=== PATIENT | female | born 1970 | race Caucasian/White ===

== ENCOUNTER 2019-12-27 12:57 | Outpatient (CLI) | payer MEDICAID | END 2019-12-27 23:59 | disposition home or self-care (01) | LOC: VAS 12:57 | PROVIDERS: ATTEND Family Medicine | DX: M79.661 Pain in right lower leg (principal) | CPT/HCPCS: 93971 ==

== ENCOUNTER 2020-07-31 10:14 | Day surgery (SDC) | payer MEDICAID ==
[2020-07-31] MEDS ORDERED: LIDOcaine 2% 5ml jelly ONE (10:52)
[2020-07-31] MEDS ORDERED: hydrocortisone 1% cream 28gm TP ONE (12:45)
[2020-07-31 13:49] LABS: BASOPHILS # (AUTO) 0.1 X10'3 (0-0.2); EOSINOPHILS # (AUTO) 0.2 X10'3 (0-0.9); HEMATOCRIT 38.9 % (35.0-45.0); HEMOGLOBIN 12.9 g/dl (12.0-16.0); LYMPHOCYTES # (AUTO) 1.6 X10'3 (1.1-4.8); LYMPHOCYTES % (AUTO) 21.5 % (21-51); MEAN CORPUSCULAR HEMOGLOBIN 27.8 PG (27.0-31.0); MEAN CORPUSCULAR HGB CONC 33.2 g/dL (33.0-36.5); MEAN CORPUSCULAR VOLUME 83.6 FL (78-98); MEAN PLATELET VOLUME 8.2 FL (7.4-10.4); MONOCYTES # (AUTO) 0.5 X10'3 (0-0.9); MONOCYTES % (AUTO) 6.8 % (2-12); NEUTROPHILS # (AUTO) 5.2 X10'3 (1.8-7.7); NEUTROPHILS % (AUTO) 67.7 % (42-75); PLATELET COUNT 278 X10'3 (140-440); RED BLOOD COUNT 4.65 X10'6 (4.20-5.60); WHITE BLOOD COUNT 7.6 X10'3 (4.5-11.0)
[2020-07-31 14:08] LABS: ALANINE AMINOTRANSFERASE 28 U/L (12-78); ALBUMIN 3.5 G/DL (3.4-5.0); ALBUMIN/GLOBULIN RATIO 0.9 (1.1-1.5); ALKALINE PHOSPHATASE 109 IU/L (46-116); ANION GAP 2 (8-16); ASPARTATE AMINO TRANSFERASE 19 U/L (10-37); BILIRUBIN,TOTAL 0.4 MG/DL (0.1-1.0); BLOOD UREA NITROGEN 13 MG/DL (7-18); BUN/CREATININE RATIO 18.8 (6.6-38.0); C-REACTIVE PROTEIN 3.82 MG/DL (0.0-0.5); CHLORIDE 104 MMOL/L (99-107); CREATININE 0.69 MG/DL (0.40-0.90); GLUCOSE 96 MG/DL (70-104); POTASSIUM 3.1 MMOL/L (3.5-5.1); SODIUM 140 MMOL/L (135-145); TOTAL CARBON DIOXIDE 33.6 MMOL/L (24-32); TOTAL PROTEIN 7.5 G/DL (6.4-8.2); eGFR 90 ML/MIN
[2020-07-31 14:20] LABS: HEMOGLOBIN A1C 5.9 % (4.5-6.2)
== END 2020-07-31 13:15 | disposition home or self-care (01) ==
LOC: WOUND CARE 10:14
PROVIDERS: ATTEND Nurse Practitioner
DX: S81.801A Unspecified open wound, right lower leg, initial encounter (principal); I89.0 Lymphedema, not elsewhere classified; M19.90 Unspecified osteoarthritis, unspecified site; M79.661 Pain in right lower leg; X58.XXXA Exposure to other specified factors, initial encounter; Y93.89 Activity, other specified; Y92.89 Other specified places as the place of occurrence of the external cause; Y99.8 Other external cause status
CPT/HCPCS: 36415; 80053; 83036; 85025; 85651; 86140; 87070; 87075; 87077; 87102; 87186; 97597

== ENCOUNTER 2020-08-15 10:10 | Day surgery (SDC) | payer MEDICAID ==
[2020-08-15] MEDS ORDERED: LIDOcaine 2% 5ml jelly ONE ×2 (11:10→11:33)
[2020-08-15] MEDS ORDERED: hydrocortisone 1% cream 28gm TP ONE (12:11)
== END 2020-08-15 12:44 | disposition home or self-care (01) ==
LOC: WOUND CARE 10:10
PROVIDERS: ATTEND Nurse Practitioner
DX: S81.801D Unspecified open wound, right lower leg, subsequent encounter (principal); I89.0 Lymphedema, not elsewhere classified; M19.90 Unspecified osteoarthritis, unspecified site; E07.9 Disorder of thyroid, unspecified; Z98.51 Tubal ligation status; X58.XXXD Exposure to other specified factors, subsequent encounter
CPT/HCPCS: 97597; 97598

== ENCOUNTER 2020-08-29 12:20 | Outpatient (CLI) | payer MEDICAID ==
[2020-08-29] MEDS ORDERED: LIDOcaine 2% 5ml jelly ONE (12:51)
[2020-08-29] MEDS ORDERED: hydrocortisone 1% cream 28gm TP ONE (13:02)
== END 2020-08-29 14:30 | disposition home or self-care (01) ==
LOC: WOUND CARE 12:20
PROVIDERS: ATTEND Nurse Practitioner
DX: S81.801D Unspecified open wound, right lower leg, subsequent encounter (principal); L97.212 Non-pressure chronic ulcer of right calf with fat layer exposed; I89.0 Lymphedema, not elsewhere classified; M19.90 Unspecified osteoarthritis, unspecified site; E07.9 Disorder of thyroid, unspecified; Z98.51 Tubal ligation status; X58.XXXD Exposure to other specified factors, subsequent encounter
CPT/HCPCS: 97597; 97598

== ENCOUNTER 2020-10-18 09:58 | Outpatient (CLI) | payer MEDICAID ==
[2020-10-18] MEDS ORDERED: LIDOcaine 2% 5ml jelly ONE (10:40)
[2020-10-18] MEDS ORDERED: hydrocortisone 1% cream 28gm TP ONE (11:41)
[2020-10-18 12:21] LABS: BASOPHILS # (AUTO) 0.1 X10'3 (0-0.2); BASOPHILS % (AUTO) 0.9 % (0-1); EOSINOPHILS # (AUTO) 0.2 X10'3 (0-0.9); EOSINOPHILS % (AUTO) 2.6 % (0-6); HEMATOCRIT 39.5 % (35.0-45.0); HEMOGLOBIN 12.9 g/dl (12.0-16.0); LYMPHOCYTES # (AUTO) 1.6 X10'3 (1.1-4.8); LYMPHOCYTES % (AUTO) 19.3 % (21-51); MEAN CORPUSCULAR HGB CONC 32.6 g/dL (33.0-36.5); MEAN CORPUSCULAR VOLUME 82.7 FL (78-98); MEAN PLATELET VOLUME 8.6 FL (7.4-10.4); MONOCYTES # (AUTO) 0.6 X10'3 (0-0.9); MONOCYTES % (AUTO) 6.9 % (2-12); NEUTROPHILS # (AUTO) 5.6 X10'3 (1.8-7.7); NEUTROPHILS % (AUTO) 70.3 % (42-75); PLATELET COUNT 301 X10'3 (140-440); RED BLOOD COUNT 4.78 X10'6 (4.20-5.60); RED CELL DISTRIBUTION WIDTH 15.3 % (11.5-14.5)
[2020-10-18 12:23] LABS: ALANINE AMINOTRANSFERASE 32 U/L (12-78); ALBUMIN 3.3 G/DL (3.4-5.0); ALBUMIN/GLOBULIN RATIO 0.7 (1.1-1.5); ALKALINE PHOSPHATASE 110 IU/L (46-116); ANION GAP 7 (8-16); ASPARTATE AMINO TRANSFERASE 29 U/L (10-37); BILIRUBIN,TOTAL 0.2 MG/DL (0.1-1.0); BLOOD UREA NITROGEN 17 MG/DL (7-18); BUN/CREATININE RATIO 22.7 (6.6-38.0); C-REACTIVE PROTEIN 1.34 MG/DL (0.0-0.5); CALCIUM 9.4 MG/DL (8.5-10.1); CHLORIDE 103 MMOL/L (99-107); CREATININE 0.75 MG/DL (0.40-0.90); GLUCOSE 129 MG/DL (70-104); POTASSIUM 3.9 MMOL/L (3.5-5.1); SODIUM 139 MMOL/L (135-145); eGFR 82 ML/MIN
== END 2020-10-18 23:59 | disposition home or self-care (01) ==
LOC: WOUND CARE 09:58
PROVIDERS: ATTEND Nurse Practitioner
DX: S81.801D Unspecified open wound, right lower leg, subsequent encounter (principal); Q82.0 Hereditary lymphedema; L97.212 Non-pressure chronic ulcer of right calf with fat layer exposed; E07.9 Disorder of thyroid, unspecified; L84 Corns and callosities; M10.9 Gout, unspecified; G89.29 Other chronic pain; G62.9 Polyneuropathy, unspecified; M19.09 Primary osteoarthritis, other specified site; F41.9 Anxiety disorder, unspecified; Z79.899 Other long term (current) drug therapy; Z98.51 Tubal ligation status; Z98.890 Other specified postprocedural states; Z79.82 Long term (current) use of aspirin; Z96.641 Presence of right artificial hip joint; Z96.698 Presence of other orthopedic joint implants; X58.XXXD Exposure to other specified factors, subsequent encounter
CPT/HCPCS: 11043; 29581; 36415; 80053; 85025; 85651; 86140; 87070; 87075; 87076; 87077; 87185; 87186

== ENCOUNTER 2020-10-24 09:34 | Outpatient (CLI) | payer MEDICAID ==
[2020-10-24] MEDS ORDERED: LIDOcaine 2% 5ml jelly ONE (10:33)
[2020-10-24] MEDS ORDERED: hydrocortisone 1% cream 28gm TP ONE (11:16)
== END 2020-10-24 23:59 | disposition home or self-care (01) ==
LOC: WOUND CARE 09:34
PROVIDERS: ATTEND Nurse Practitioner
DX: L97.212 Non-pressure chronic ulcer of right calf with fat layer exposed (principal); Q82.0 Hereditary lymphedema; S81.801D Unspecified open wound, right lower leg, subsequent encounter; M19.90 Unspecified osteoarthritis, unspecified site; E07.9 Disorder of thyroid, unspecified; L84 Corns and callosities; M10.9 Gout, unspecified; G89.29 Other chronic pain; G62.9 Polyneuropathy, unspecified; F41.9 Anxiety disorder, unspecified; Z98.51 Tubal ligation status; Z79.899 Other long term (current) drug therapy; Z98.890 Other specified postprocedural states; Z79.82 Long term (current) use of aspirin; Z96.641 Presence of right artificial hip joint; Z96.698 Presence of other orthopedic joint implants; X58.XXXD Exposure to other specified factors, subsequent encounter
CPT/HCPCS: 11042; 29581

== ENCOUNTER 2020-11-07 11:29 | Outpatient (CLI) | payer MEDICAID | END 2020-11-07 23:59 | disposition home or self-care (01) | LOC: WOUND CARE 11:29 | PROVIDERS: ATTEND Nurse Practitioner | DX: Q82.0 Hereditary lymphedema (principal); S81.801D Unspecified open wound, right lower leg, subsequent encounter; L97.212 Non-pressure chronic ulcer of right calf with fat layer exposed; E07.9 Disorder of thyroid, unspecified; L84 Corns and callosities; M10.9 Gout, unspecified; G89.29 Other chronic pain; G62.9 Polyneuropathy, unspecified; M19.09 Primary osteoarthritis, other specified site; F41.9 Anxiety disorder, unspecified; Z79.899 Other long term (current) drug therapy; Z98.51 Tubal ligation status; Z98.890 Other specified postprocedural states; Z79.82 Long term (current) use of aspirin; Z96.641 Presence of right artificial hip joint; Z96.698 Presence of other orthopedic joint implants; X58.XXXD Exposure to other specified factors, subsequent encounter | CPT/HCPCS: 29581 ==

== ENCOUNTER 2020-11-22 10:41 | Outpatient (CLI) | payer MEDICAID ==
[2020-11-22] MEDS ORDERED: LIDOcaine 2% 5ml jelly ONE (11:44)
[2020-11-22] MEDS ORDERED: hydrocortisone 1% cream 28gm TP ONE (13:02)
== END 2020-11-22 23:59 | disposition home or self-care (01) ==
LOC: WOUND CARE 10:41
PROVIDERS: ATTEND Nurse Practitioner
DX: S81.801D Unspecified open wound, right lower leg, subsequent encounter (principal); Q82.0 Hereditary lymphedema; L97.212 Non-pressure chronic ulcer of right calf with fat layer exposed; E07.9 Disorder of thyroid, unspecified; L84 Corns and callosities; M10.9 Gout, unspecified; G89.29 Other chronic pain; G62.9 Polyneuropathy, unspecified; M19.09 Primary osteoarthritis, other specified site; F41.9 Anxiety disorder, unspecified; Z79.899 Other long term (current) drug therapy; Z98.51 Tubal ligation status; Z98.890 Other specified postprocedural states; Z79.82 Long term (current) use of aspirin; Z96.641 Presence of right artificial hip joint; Z96.698 Presence of other orthopedic joint implants; X58.XXXD Exposure to other specified factors, subsequent encounter
CPT/HCPCS: 11042; 87070; 87075; 87076; 87077; 87185; 87186

== ENCOUNTER → 2021-01-24 | Outpatient (CLI) | payer MEDICAID ==
[~2021-01-24] MED LIST: LIDOcaine 2% 5ml jelly ONE
== END | disposition home or self-care (01) ==
LOC: WOUND CARE 11:29
PROVIDERS: ATTEND Nurse Practitioner
DX: I89.0 Lymphedema, not elsewhere classified (principal); S81.801D Unspecified open wound, right lower leg, subsequent encounter; Q82.0 Hereditary lymphedema; L89.616 Pressure-induced deep tissue damage of right heel; L97.212 Non-pressure chronic ulcer of right calf with fat layer exposed; E07.9 Disorder of thyroid, unspecified; L84 Corns and callosities; M10.9 Gout, unspecified; G89.29 Other chronic pain; G62.9 Polyneuropathy, unspecified; M19.09 Primary osteoarthritis, other specified site; F41.9 Anxiety disorder, unspecified; Z79.899 Other long term (current) drug therapy; Z98.51 Tubal ligation status; Z98.890 Other specified postprocedural states; Z79.82 Long term (current) use of aspirin; Z96.641 Presence of right artificial hip joint; Z96.698 Presence of other orthopedic joint implants; X58.XXXD Exposure to other specified factors, subsequent encounter
CPT/HCPCS: 11043; 87070; 87075; 87076; 87077; 87185; 87186

== ENCOUNTER 2021-03-01 08:46 | Inpatient (IN) | payer MEDICAID ==
[~2021-03-01] VITALS: Ht 182.9 cm; Wt 118.0 kg
[~2021-03-01 08:46] MED LIST changes: -LIDOcaine 2% 5ml jelly ONE; +etomidate 2mg/ml inj. ONE; +rocuronium 10mg/ml inj IV ONE; +sod chloride 0.9% 10ml flush syringe IV ONE
[2021-03-01] MEDS ORDERED: normal saline 1000ML IV soln IV ONE (09:05)
[2021-03-01] MEDS ORDERED: CefTRIAXone 2gm/D5W 50ml BAG 50 ML IV ONE (09:05)
[2021-03-01 10:42] LABS: MEAN PLATELET VOLUME 8.9 FL (7.4-10.4); RED BLOOD COUNT 5.52 X10'6 (4.20-5.60)
[2021-03-01 10:45] LABS: HEMATOCRIT 43.6 % (35.0-45.0); HEMOGLOBIN 14.3 g/dl (12.0-16.0); MEAN CORPUSCULAR HGB CONC 32.9 g/dL (33.0-36.5); PLATELET COUNT 324 X10'3 (140-440); RED CELL DISTRIBUTION WIDTH 16.4 % (11.5-14.5); WHITE BLOOD COUNT 9.9 X10'3 (4.5-11.0)
[2021-03-01 10:56] LABS: ALANINE AMINOTRANSFERASE 50 U/L (12-78); ALBUMIN 2.1 G/DL (3.4-5.0); ALBUMIN/GLOBULIN RATIO 0.4 (1.1-1.5); ALKALINE PHOSPHATASE 150 IU/L (46-116); ANION GAP 16 (8-16); ASPARTATE AMINO TRANSFERASE 91 U/L (10-37); BILIRUBIN,TOTAL 1.3 MG/DL (0.1-1.0); BLOOD UREA NITROGEN 50 MG/DL (7-18); BUN/CREATININE RATIO 14.3 (6.6-38.0); CALCIUM 10.3 MG/DL (8.5-10.1); CHLORIDE 87 MMOL/L (99-107); GLUCOSE 79 MG/DL (70-104); POTASSIUM 4.4 MMOL/L (3.5-5.1); SODIUM 124 MMOL/L (135-145); TOTAL CARBON DIOXIDE 21.5 MMOL/L (24-32); eGFR 14 ML/MIN
[2021-03-01] MEDS ORDERED: vancomycin inj 1,000 MG in normal saline 250ml IV soln 250 ML IV STA (11:15)
[2021-03-01] MEDS ORDERED: metoclopramide 5 mg/ml inj IV ONE (11:40)
[2021-03-01 11:41] LABS: TOTAL CELLS COUNTED 100
[2021-03-01 11:42] LABS: ANISOCYTOSIS 1+; BURR CELLS 2+; PLATELET ESTIMATE NORMAL; TOXIC VACUOLATION 1+
--- NOTE | 2021-03-01 12:13 | NUR ---
DRESSINGS REMOVED. PT LEGS HAVE CHRONIC APPEARING WOUNDS BILATERALLY.
[2021-03-01 12:25] LABS: CLARITY,URINE CLOUDY (Clear); COLOR,URINE AMBER (Yellow); GLUCOSE, URINE NEGATIVE (Neg); KETONES,URINE 15 mg/dl (Neg); LEUKOCYTE ESTERASE ,URINE NEGATIVE (Neg); OCCULT BLOOD,URINE LARGE (Neg); PROTEIN,URINE 100 mg/dl (Neg)
[2021-03-01 12:26] LABS: URINE AMPHETAMINE SCREEN POSITIVE (Neg); URINE BARBITUATE SCREEN NEGATIVE (Neg); URINE BENZODIAZEPINES SCREEN NEGATIVE (Neg); URINE CANNABINOID SCREEN NEGATIVE (Neg); URINE COCAINE SCREEN NEGATIVE (Neg); URINE METHADONE SCREEN NEGATIVE (Neg); URINE OPIATE SCREEN POSITIVE (Neg); URINE PHENCYCLIDINE SCREEN NEGATIVE (Neg)
[2021-03-01 12:31] LABS: UA COLLECTION TYPE FOLEY CATH
[2021-03-01 12:32] LABS: NITRITES, URINE NEGATIVE (Neg)
[2021-03-01 12:33] LABS: BACTERIA,URINE FEW /HPF (Neg); MUCUS STRANDS FEW /LPF (Neg); RBC,URINE 0-2 /HPF (0-2); SQUAMOUS EPITHELIAL CELL,UR MANY /LPF (FEW); TRANSITIONAL EPI CELLS,URINE FEW /HPF; WBC,URINE 0-4 /HPF (0-4)
[2021-03-01 12:34] LABS: AMORPHOUS URATES 2+; COARSE GRANULAR CAST 0-3 /LPF (NEGATIVE)
[2021-03-01 12:39] LABS: C-REACTIVE PROTEIN 45.19 MG/DL (0.0-0.5)
[2021-03-01] MEDS ORDERED: TRIA15CR62 TP (13:48)
[2021-03-01] MEDS ORDERED: morphine 4 MG/ML inj SYRINge IV ONE (14:45)
[2021-03-01] MEDS ORDERED: albuterol 2.5 MG/3 ML nebule NEB PRN (15:35)
[2021-03-01] MEDS ORDERED: magnesium hydroxide 30ml (MOM) UD suspension PO PRN (15:35)
[2021-03-01] MEDS ORDERED: LIDOcaine 2% 10ml TOPICAL JELLY (Urojet) TP ONE (15:35)
[2021-03-01] MEDS ORDERED: morphine 2 MG/ML inj. syringe IV PRN (15:35)
[2021-03-01] MEDS ORDERED: morphine 4 MG/ML inj SYRINge IV PRN (15:35)
[2021-03-01] MEDS ORDERED: ipratropium/albuterol 3ml nebule NEB PRN (15:35)
[2021-03-01] MEDS ORDERED: ondansetron/PF 4mg/2ml inj IV PRN (15:35)
[2021-03-01] MEDS ORDERED: acetaminophen 325mg tablet PO PRN ×2 (15:35)
--- NOTE | 2021-03-01 15:58 | NUR ---
complete linen change, pericare: rosado diarhhea, clean gown placed
[2021-03-01] MEDS ORDERED: vancomycin/NS 1 GM ADD-VANTAGE 250 ML X 1 DOSE IV ONE (16:27)
--- NOTE | 2021-03-01 16:49 | NUR ---
WITH PATIENT'S PERMISSION: SPOKE TO TESSA ON THE PHONE
[2021-03-01 16:57] LABS: ABG BASE EXCESS -4.6 mmol/L (-2.0-2.0); ABG HCO3 18.7 mmol/L (22.0-26.0); ABG OXYGEN SATURATION 93.9 % (94-97); ABG PCO2 (T) 29.6 mmHg (32.0-45.0); ABG PO2 (T) 66.5 mmHg (75.0-100.0); FCOHb 0.7 % (0.0-3.9); FMetHb 0.2 % (0.0-1.5); FO2Hb 93.1 % (94-97); TOTAL HEMOGLOBIN 13.4 G/dl (12.0-16.0)
--- NOTE | 2021-03-01 17:06 | NUR ---
FATHER LATONIA CLER: CELL [phone] SIGNIFICANT OTHER: TESSA BOATENG CELL: [phone]
[2021-03-01] MEDS: piperacillin/tazo 3.375gm/50ml 50 ML IV SCH (17:07)
[2021-03-01] MEDS: normal saline 1000ml 1,000 ML IV SCH ×2 (17:08→22:53)
[2021-03-01 17:18] LABS: D-DIMER 2.64 MG/L FEU (0-0.50)
--- NOTE | 2021-03-01 17:22 | NUR ---
FATHER AT BEDSIDE
--- NOTE | 2021-03-01 17:23 | NUR ---
phone report to madhu fischer. patient to go to room 2014 in icu with rn on monitor on [facility]
[2021-03-01 18:00] VITALS: BP 105/54
--- NOTE | 2021-03-01 18:17 | NUR ---
Received pt from ER at 1755. Pt connected to the monitor. Dr. Lang at bedside right now. Gave report to nuno Reaves RN.
[2021-03-01] MEDS ORDERED: normal saline 1000ml 1,000 ML IV ONE (18:45)
[2021-03-01] MEDS ORDERED: albumin (Human) 5% 250ml 250 ML IV ONE ×3 (18:45→22:00)
[2021-03-01 19:00] VITALS: BP 101/62
[2021-03-01] MEDS ORDERED: dextrose 50%-water 50ml dispensing syringe IV ONE ×2 (19:44→20:10)
[2021-03-01 20:00] VITALS: BP 102/62
[2021-03-01] MEDS: docusate sod 100mg capsule PO SCH (20:00)
[2021-03-01] MEDS: heparin, porcine 5000 units/ml vial SQ SCH ×2 (20:29→23:14)
[2021-03-01] MEDS ORDERED: Dextrose 10%-water IV solution 1,000 ML IV SCH (20:50)
[2021-03-01] MEDS ORDERED: insulin Lispro (HumaLOG) vial - multi-dose SQ SCH (20:50)
[2021-03-01] MEDS ORDERED: MESSAGE TO PHARMACY PO ONE (20:50)
[2021-03-01] MEDS ORDERED: dextrose 50%-water 50ml dispensing syringe IV PRN (20:50)
[2021-03-01] MEDS ORDERED: dextrose ORAL solution 15 GM/59 ML bottle PO PRN ×2 (20:50)
[2021-03-01] MEDS ORDERED: glucagon, human recombinant 1mg kit SUBCUT PRN (20:50)
[2021-03-01] MEDS: insulin glargine (Lantus) pen - multi-dose SQ SCH (20:53)
[2021-03-01 21:00] VITALS: BP 101/65
[2021-03-01 21:17] LABS: HEMOGLOBIN A1C 6.4 % (4.5-6.2)
[2021-03-01 22:00] VITALS: BP 103/64
[2021-03-01 23:00] VITALS: BP 99/64
[2021-03-01] MEDS: dextrose 50%-water 50ml dispensing syringe IV PRN (23:26)
[2021-03-02] VITALS (24 sets, daily range): BP systolic 91–119; BP diastolic 43–61
[2021-03-02] MEDS ORDERED: albumin (Human) 5% 250ml 250 ML IV ONE
[2021-03-02] MEDS: piperacillin/tazo 3.375gm/50ml 50 ML IV SCH ×4 (00:50→23:16)
[2021-03-02] MEDS: dextrose 50%-water 50ml dispensing syringe IV PRN ×2 (00:55→23:43)
[2021-03-02 02:23] LABS: PARTIAL THROMBOPLASTIN TIME 52 SECONDS (22-32)
[2021-03-02 02:25] LABS: ALANINE AMINOTRANSFERASE 38 U/L (12-78); ALBUMIN 1.9 G/DL (3.4-5.0); ALBUMIN/GLOBULIN RATIO 0.7 (1.1-1.5); ALKALINE PHOSPHATASE 80 IU/L (46-116); ANION GAP 12 (8-16); ASPARTATE AMINO TRANSFERASE 89 U/L (10-37); BILIRUBIN,TOTAL 1.1 MG/DL (0.1-1.0); BLOOD UREA NITROGEN 50 MG/DL (7-18); BUN/CREATININE RATIO 19.2 (6.6-38.0); CALCIUM 8.1 MG/DL (8.5-10.1); CHLORIDE 95 MMOL/L (99-107); GLUCOSE 150 MG/DL (70-104); MAGNESIUM 1.5 MG/DL (1.5-2.4); PHOSPHORUS 3.1 MG/DL (2.3-4.5); POTASSIUM 3.6 MMOL/L (3.5-5.1); SODIUM 128 MMOL/L (135-145); TOTAL CARBON DIOXIDE 20.6 MMOL/L (24-32); TOTAL PROTEIN 4.8 G/DL (6.4-8.2); eGFR 19 ML/MIN
[2021-03-02 02:50] LABS: HEMOGLOBIN 10.6 g/dl (12.0-16.0); MEAN PLATELET VOLUME 8.6 FL (7.4-10.4)
[2021-03-02 02:52] LABS: HEMATOCRIT 32.6 % (35.0-45.0); MEAN CORPUSCULAR HEMOGLOBIN 25.6 PG (27.0-31.0); MEAN CORPUSCULAR HGB CONC 32.6 g/dL (33.0-36.5); MEAN CORPUSCULAR VOLUME 78.5 FL (78-98); PLATELET COUNT 190 X10'3 (140-440); RED BLOOD COUNT 4.15 X10'6 (4.20-5.60); RED CELL DISTRIBUTION WIDTH 16.6 % (11.5-14.5); WHITE BLOOD COUNT 5.9 X10'3 (4.5-11.0)
[2021-03-02 06:22] LABS: ANISOCYTOSIS 1+; BURR CELLS 2+; ELLIPTOCYTES FEW; MICROCYTOSIS 1+; PLATELET ESTIMATE NORMAL; TOTAL CELLS COUNTED 100
[2021-03-02 06:23] LABS: TOXIC VACUOLATION 1+
[2021-03-02] MEDS: heparin, porcine 5000 units/ml vial SQ SCH ×3 (07:32→23:17)
[2021-03-02] MEDS: pantoprazole 40 MG vial IV SCH (07:32)
[2021-03-02] MEDS: docusate sod 100mg capsule PO SCH ×3 (07:32→18:58)
[2021-03-02] MEDS: normal saline 1000ml 1,000 ML IV SCH ×3 (07:44→21:24)
[2021-03-02] MEDS ORDERED: sodium chloride inj. 154 MEQ in Dextrose 10%-water IV solution 961.5 ML IV SCH ×2 (08:30→09:00)
[2021-03-02] MEDS ORDERED: dexmedetomidine/D5W 100mL 100 ML IV PRN (09:00)
--- NOTE | 2021-03-02 09:49 | NUR ---
Initial: Pt with h/o severe lymphedema BIB EMS for evaluation of non-healing chronic wounds to right leg. Pt being seen by wound care at home and was encouraged to go to ER d/t wound appearance per ED note. Wound care has been consulted, pending assessment at this time. Pt on a full liquid diet however to be NPO until pt able to pass a swallow study per MD note as pt coughing when drinking water per guest relations officer. Recommend BSS with ST to assess need for texture modification. Noted pt with frequent low blood sugars, down to 17 mg/dL. Pt on glycemic protocol and receiving routine D10/NS. Recommend diet advancement to regular as medically indicated. No documented LBM, pt with routine bowel care available however pt documented to be refusing. Will continue to follow closely and make recommendations as appropriate. Recommendations: 1) Advance to regular diet as medically indicated; consider BSS with ST 2) Saurav ONS BID for wound healing needs with diet advancement, pending WOC assessment for wound staging 3) Routine bowel care 4) Weekly scaled weights Addendum: 03/02/21 at [address] Amended: Links added.
[2021-03-02] MEDS: sodium chloride inj. 154 MEQ in Dextrose 10%-water IV solution 961.5 ML IV SCH (11:15)
[2021-03-02 11:41] LABS: CREATINE KINASE 192 U/L (26-192)
[2021-03-02] MEDS: vancomycin/NS 1 GM ADD-VANTAGE 250 ML IV SCH (15:50)
[2021-03-02] MEDS ORDERED: VANCOMYCIN 750MG IV in NS 250 ML IV SCH (17:00)
--- NOTE | 2021-03-02 18:16 | NUR ---
Problems reprioritized. Patient report given, questions answered & plan of care reviewed with Jean Paul.
[2021-03-02] MEDS ORDERED: potassium Cl 40MEQ/1/2NS 520ml 520 ML IV PRN (20:45)
[2021-03-02] MEDS ORDERED: potassium Cl 20 mEq SR tablet PO PRN (20:45)
[2021-03-02] MEDS: insulin glargine (Lantus) pen - multi-dose SQ SCH (21:00)
--- NOTE | 2021-03-02 21:02 | NUR ---
spoke to dr. myers in regards to lactic acid series . orders are to repeat in with AM labs and not to do q2h unless change in patient status
[2021-03-03] VITALS (24 sets, daily range): BP systolic 92–135; BP diastolic 48–77
[2021-03-03 04:01] LABS: PARTIAL THROMBOPLASTIN TIME 47 SECONDS (22-32)
[2021-03-03 04:02] LABS: ALANINE AMINOTRANSFERASE 34 U/L (12-78); ALBUMIN 1.4 G/DL (3.4-5.0); ALBUMIN/GLOBULIN RATIO 0.4 (1.1-1.5); ALKALINE PHOSPHATASE 99 IU/L (46-116); ANION GAP 16 (8-16); ASPARTATE AMINO TRANSFERASE 55 U/L (10-37); BILIRUBIN,TOTAL 1.2 MG/DL (0.1-1.0); BLOOD UREA NITROGEN 47 MG/DL (7-18); BUN/CREATININE RATIO 24.9 (6.6-38.0); CALCIUM 8.2 MG/DL (8.5-10.1); CHLORIDE 98 MMOL/L (99-107); CREATININE 1.89 MG/DL (0.40-0.90); GLUCOSE 88 MG/DL (70-104); LACTATE DEHYDROGENASE 155 U/L (81-234); MAGNESIUM 1.5 MG/DL (1.5-2.4); PHOSPHORUS 2.5 MG/DL (2.3-4.5); POTASSIUM 3.5 MMOL/L (3.5-5.1); SODIUM 135 MMOL/L (135-145); TOTAL CARBON DIOXIDE 20.6 MMOL/L (24-32); TOTAL PROTEIN 4.7 G/DL (6.4-8.2); eGFR 28 ML/MIN
[2021-03-03 05:20] LABS: RHEUM FACTOR QUAL REFLEX TITER NEGATIVE (Neg)
[2021-03-03 06:17] LABS: HIV ANTIBODY 1&2 RAPID NON-REACTIVE (Neg)
[2021-03-03] MEDS: sodium chloride inj. 154 MEQ in Dextrose 10%-water IV solution 961.5 ML IV SCH ×2 (07:20→23:47)
[2021-03-03 07:54] LABS: BASOPHILS # (AUTO) 0.1 X10'3 (0-0.2); BASOPHILS % (AUTO) 0.4 % (0-1); EOSINOPHILS % (AUTO) 0.1 % (0-6); HEMATOCRIT 32.7 % (35.0-45.0); HEMOGLOBIN 10.7 g/dl (12.0-16.0); LYMPHOCYTES # (AUTO) 0.3 X10'3 (1.1-4.8); LYMPHOCYTES % (AUTO) 2.2 % (21-51); MEAN CORPUSCULAR HEMOGLOBIN 25.4 PG (27.0-31.0); MEAN CORPUSCULAR HGB CONC 32.6 g/dL (33.0-36.5); MEAN PLATELET VOLUME 8.9 FL (7.4-10.4); MONOCYTES % (AUTO) 0.3 % (2-12); NEUTROPHILS # (AUTO) 14.4 X10'3 (1.8-7.7); PLATELET COUNT 142 X10'3 (140-440); RED CELL DISTRIBUTION WIDTH 16.8 % (11.5-14.5); WHITE BLOOD COUNT 14.9 X10'3 (4.5-11.0)
[2021-03-03] MEDS: K and/or MAG REPLACEMENT MC SCH (08:00)
[2021-03-03] MEDS: docusate sod 100mg capsule PO SCH ×2 (08:00→18:57)
[2021-03-03] MEDS: piperacillin/tazo 3.375gm/50ml 50 ML IV SCH ×3 (08:55→23:46)
[2021-03-03] MEDS: pantoprazole 40 MG vial IV SCH (08:55)
[2021-03-03] MEDS: heparin, porcine 5000 units/ml vial SQ SCH ×3 (08:56→23:46)
[2021-03-03] MEDS: normal saline 1000ml 1,000 ML IV SCH ×3 (09:12→23:47)
[2021-03-03] MEDS ORDERED: normal saline 1000ml 1,000 ML IV ONE ×3 (10:25→18:30)
[2021-03-03 11:26] LABS: ANISOCYTOSIS 1+; BURR CELLS 2+; ELLIPTOCYTES FEW; MICROCYTOSIS 1+; PLATELET ESTIMATE DECREASED; TOTAL CELLS COUNTED 100
[2021-03-03] MEDS: vancomycin/NS 1 GM ADD-VANTAGE 250 ML IV SCH (16:43)
--- NOTE | 2021-03-03 18:01 | NUR ---
per Dr Rickey Verduzco needs to br informed again about the patient's lactic acid of 5.1. Message left with the answering service of Dr Verduzco.
[2021-03-03 18:16] LABS: ABG OXYGEN SATURATION 93.7 % (94-97); ABG PCO2 (T) 30.5 mmHg (32.0-45.0); ALLEN'S TEST POSITIVE; FCOHb 0.2 % (0.0-3.9); FMetHb 0.4 % (0.0-1.5); FO2Hb 93.1 % (94-97); TOTAL HEMOGLOBIN 11.3 G/dl (12.0-16.0)
--- NOTE | 2021-03-03 18:30 | NUR ---
Dr Lang notified of ABG results. Patient placed on 2 l/NC
[2021-03-03] MEDS: insulin glargine (Lantus) pen - multi-dose SQ SCH (18:57)
[2021-03-04] VITALS (23 sets, daily range): BP systolic 91–139; BP diastolic 59–83
[2021-03-04 03:36] LABS: BASOPHILS % (AUTO) 0.1 % (0-1); EOSINOPHILS % (AUTO) 0.2 % (0-6); HEMATOCRIT 33.3 % (35.0-45.0); HEMOGLOBIN 10.7 g/dl (12.0-16.0); LYMPHOCYTES # (AUTO) 0.7 X10'3 (1.1-4.8); LYMPHOCYTES % (AUTO) 2.8 % (21-51); MEAN CORPUSCULAR HEMOGLOBIN 25.3 PG (27.0-31.0); MEAN CORPUSCULAR HGB CONC 32.3 g/dL (33.0-36.5); MEAN CORPUSCULAR VOLUME 78.3 FL (78-98); MEAN PLATELET VOLUME 8.4 FL (7.4-10.4); MONOCYTES # (AUTO) 0.1 X10'3 (0-0.9); MONOCYTES % (AUTO) 0.3 % (2-12); NEUTROPHILS # (AUTO) 23.8 X10'3 (1.8-7.7); NEUTROPHILS % (AUTO) 96.6 % (42-75); PLATELET COUNT 125 X10'3 (140-440); RED BLOOD COUNT 4.26 X10'6 (4.20-5.60); RED CELL DISTRIBUTION WIDTH 16.9 % (11.5-14.5); WHITE BLOOD COUNT 24.6 X10'3 (4.5-11.0)
[2021-03-04 03:51] LABS: PARTIAL THROMBOPLASTIN TIME 48 SECONDS (22-32)
[2021-03-04 03:52] LABS: ALANINE AMINOTRANSFERASE 28 U/L (12-78); ALBUMIN 1.3 G/DL (3.4-5.0); ALBUMIN/GLOBULIN RATIO 0.4 (1.1-1.5); ALKALINE PHOSPHATASE 118 IU/L (46-116); ANION GAP 14 (8-16); ASPARTATE AMINO TRANSFERASE 37 U/L (10-37); BILIRUBIN,TOTAL 1.6 MG/DL (0.1-1.0); BLOOD UREA NITROGEN 40 MG/DL (7-18); BUN/CREATININE RATIO 31.5 (6.6-38.0); CALCIUM 8.5 MG/DL (8.5-10.1); CHLORIDE 104 MMOL/L (99-107); CREATININE 1.27 MG/DL (0.40-0.90); GLUCOSE 91 MG/DL (70-104); MAGNESIUM 1.4 MG/DL (1.5-2.4); PHOSPHORUS 2.4 MG/DL (2.3-4.5); SODIUM 137 MMOL/L (135-145); TOTAL PROTEIN 4.8 G/DL (6.4-8.2); eGFR 45 ML/MIN
[2021-03-04 03:56] LABS: POTASSIUM 2.8 MMOL/L (3.5-5.1)
[2021-03-04] MEDS: normal saline 1000ml 1,000 ML IV SCH ×4 (07:00→23:51)
[2021-03-04] MEDS: heparin, porcine 5000 units/ml vial SQ SCH ×3 (07:31→23:04)
[2021-03-04] MEDS: docusate sod 100mg capsule PO SCH ×2 (07:31→19:32)
[2021-03-04] MEDS: potassium Cl 20 mEq SR tablet PO PRN ×3 (07:33→17:24)
[2021-03-04] MEDS: K and/or MAG REPLACEMENT MC SCH (08:00)
[2021-03-04] MEDS: pantoprazole 40 MG vial IV SCH (08:25)
[2021-03-04] MEDS: piperacillin/tazo 3.375gm/50ml 50 ML IV SCH ×3 (08:26→23:04)
--- NOTE | 2021-03-04 08:30 | NUR ---
ARRIVED TO PLACE PICC, PT UNAVAILABLE AT THIS TIME WOUND CARE AND IR AT BEDSIDE FOR PROCEDURE. BÁRBARA Hartmann PICC MARIO
--- NOTE | 2021-03-04 09:40 | NUR ---
Pt's R IJ central line leaking upon change of shift. Pt receiving NS @ 150, D10 @ 50, and potassium replacement at that time. Pt's entire bed saturated with fluid and CVL dressed with only a small tegaderm which wasn't even covering the insertion site of the central line. Removed CVL to find that line was only in about 1.5 inches. Picture taken and rn hemodialysis charge notified. Pt had 22g in the left thumb which was infiltrated as well. IV removed. PICC nurse paged to place line since pt had no lines at that point. MARIO Liz placed US guided 20g PIV in left arm temporarily and will be back to place PICC.
--- NOTE | 2021-03-04 11:00 | NUR ---
ARRIVED FOR PICC PLACEMENT, PT BEING CLEANED UP AT THIS TIME, MANNY MARTIN REQUESTING I COME BACK IN 30 MINUTES. WILL TRY AGAIN AFTER LUNCH. Lei GRANGER PICC RN
[2021-03-04] MEDS: clindamycin 600mg/D5W 50ml 50 ML IV SCH ×3 (11:58→23:50)
[2021-03-04] MEDS: magnesium Cl slow-release 64mg tablet PO PRN (12:22)
--- NOTE | 2021-03-04 12:50 | NUR ---
NO PICC CONSENT SIGNED, CALLED DR MCCLENDON TO CONFIRM PICC LINE ORDER NEEDED. PER MD PLACE PICC LINE. PT PROVIDED VERBAL CONSENT WHEN FIRST CONTACT MADE THIS MORNING, PT AT THAT TIME ALERT AND ORIENTED X'S 4 Lei GRANGER PICC RN.
--- NOTE | 2021-03-04 13:38 | NUR ---
Reassessment: RN at critical care rounds reports wound care is working with pt, however WOC note still pending at this time. Pt PO intake 25-50% on full liquid diet, per RADIATION ONCOLOGIST recs pt gets SOB easily and should continue on current diet. Recommend Ensure Enlive TIDWM given poor PO intake on restrictive diet. Last BM 03/04 per RN at rounds, receiving routine bowel care. Will continue to monitor closely. Recommendations: 1) Advance to heart healthy diet as medically indicated per RADIATION ONCOLOGIST recs 2) Ensure Enlive TIDWM pending MD verification in EMR 3) Routine bowel care 4) Weekly scaled weights Addendum: 03/04/21 at [address] Amended: Links added. Addendum: 03/04/21 at [address] SIRIA agrees w/ above internal revenue service agent note.
[2021-03-04 14:10] LABS: ANISOCYTOSIS 1+; BURR CELLS 2+; MICROCYTOSIS 1+; NUCLEATED RED BLOOD CELLS 1 /100WBC (0-0); PLATELET ESTIMATE DECREASED; TOTAL CELLS COUNTED 100
--- NOTE | 2021-03-04 14:24 | NUR ---
PSYCHIATRIC LINE INFORMATION: REF: [id number] LOT: [id number] EXP: 02/13/2022
[2021-03-04] MEDS ORDERED: VANCOMYCIN LEVEL IV ONE (16:30)
[2021-03-04 16:36] LABS: ABG BASE EXCESS -5.3 mmol/L (-2.0-2.0); ABG HCO3 17.5 mmol/L (22.0-26.0); ABG OXYGEN SATURATION 96.2 % (94-97); ABG PCO2 (T) 28.7 mmHg (32.0-45.0); ABG PO2 (T) 91.3 mmHg (75.0-100.0); ALLEN'S TEST POSITIVE; FMetHb 0.5 % (0.0-1.5); FO2Hb 95.7 % (94-97); PATIENT TEMPERATURE 38.7; TOTAL HEMOGLOBIN 11.6 G/dl (12.0-16.0)
[2021-03-04 16:41] LABS: VANCOMYCIN,TROUGH 9.8 UG/ML (6.0-14.0)
[2021-03-04] MEDS ORDERED: normal saline 1000ml 1,000 ML IV ONE (17:20)
[2021-03-04] MEDS: vancomycin/NS 1 GM ADD-VANTAGE 250 ML IV SCH (17:29)
--- NOTE | 2021-03-04 17:29 | NUR ---
Dr. Richardson will come by tomorrow to reassess changes in R leg
[2021-03-04] MEDS: lactose-reduced food (Ensure Enlive) - 237ml bottle PO SCH (17:50)
[2021-03-04 18:00] LABS: CREATINE KINASE 28 U/L (26-192)
[2021-03-04] MEDS: lactobacillus rhamnosus 10,000 MMU CELLS/CAPSULE PO SCH (19:32)
[2021-03-04 19:37] LABS: MAGNESIUM 1.5 MG/DL (1.5-2.4); POTASSIUM 3.4 MMOL/L (3.5-5.1)
[2021-03-04] MEDS: VITAMIN D TP SCH (20:00)
[2021-03-04] MEDS: [UNRECOGNIZED DRUG - OTHER] TP SCH (20:00)
[2021-03-04] MEDS: sodium chloride inj. 154 MEQ in Dextrose 10%-water IV solution 961.5 ML IV SCH (20:35)
[2021-03-04] MEDS: insulin glargine (Lantus) pen - multi-dose SQ SCH (21:00)
[2021-03-05] VITALS (25 sets, daily range): BP systolic 15–153; BP diastolic 48–84
[2021-03-05] MEDS ORDERED: LORazepam 2 mg/ml vial IV ONE (00:20)
[2021-03-05 03:29] LABS: BASOPHILS % (AUTO) 0.1 % (0-1); EOSINOPHILS % (AUTO) 0.1 % (0-6); HEMOGLOBIN 10.3 g/dl (12.0-16.0); LYMPHOCYTES # (AUTO) 1.1 X10'3 (1.1-4.8); MEAN CORPUSCULAR HGB CONC 32.6 g/dL (33.0-36.5); MEAN PLATELET VOLUME 8.8 FL (7.4-10.4); MONOCYTES # (AUTO) 0.3 X10'3 (0-0.9)
[2021-03-05 03:37] LABS: PARTIAL THROMBOPLASTIN TIME 44 SECONDS (22-32)
[2021-03-05 03:39] LABS: ALANINE AMINOTRANSFERASE 26 U/L (12-78); ALBUMIN 1.2 G/DL (3.4-5.0); ALBUMIN/GLOBULIN RATIO 0.3 (1.1-1.5); ALKALINE PHOSPHATASE 137 IU/L (46-116); ANION GAP 13 (8-16); ASPARTATE AMINO TRANSFERASE 30 U/L (10-37); BILIRUBIN,TOTAL 1.6 MG/DL (0.1-1.0); BLOOD UREA NITROGEN 37 MG/DL (7-18); BUN/CREATININE RATIO 35.6 (6.6-38.0); CALCIUM 8.4 MG/DL (8.5-10.1); CHLORIDE 106 MMOL/L (99-107); CREATININE 1.04 MG/DL (0.40-0.90); GLUCOSE 140 MG/DL (70-104); HEMATOCRIT 31.6 % (35.0-45.0); MAGNESIUM 1.7 MG/DL (1.5-2.4); PHOSPHORUS 2.3 MG/DL (2.3-4.5); POTASSIUM 3.7 MMOL/L (3.5-5.1); RED BLOOD COUNT 4.05 X10'6 (4.20-5.60); SODIUM 140 MMOL/L (135-145); TOTAL CARBON DIOXIDE 20.8 MMOL/L (24-32); TOTAL PROTEIN 4.8 G/DL (6.4-8.2); eGFR 56 ML/MIN
[2021-03-05 03:40] LABS: LYMPHOCYTES % (AUTO) 3.6 % (21-51); MEAN CORPUSCULAR HEMOGLOBIN 25.4 PG (27.0-31.0); MEAN CORPUSCULAR VOLUME 78.1 FL (78-98); MONOCYTES % (AUTO) 1.1 % (2-12); NEUTROPHILS # (AUTO) 29.5 X10'3 (1.8-7.7); NEUTROPHILS % (AUTO) 95.1 % (42-75); PLATELET COUNT 112 X10'3 (140-440); RED CELL DISTRIBUTION WIDTH 16.6 % (11.5-14.5)
[2021-03-05] MEDS ORDERED: haloperidol lactate 5mg/ml inj IM PRN (04:45)
[2021-03-05] MEDS ORDERED: VANCOmycin 1250MG/NS 250ml Bag 250 ML IV SCH (07:00)
[2021-03-05] MEDS: K and/or MAG REPLACEMENT MC SCH (07:25)
[2021-03-05] MEDS: piperacillin/tazo 3.375gm/50ml 50 ML IV SCH (07:38)
[2021-03-05] MEDS: docusate sod 100mg capsule PO SCH ×2 (07:38→20:00)
[2021-03-05] MEDS: clindamycin 600mg/D5W 50ml 50 ML IV SCH (07:38)
[2021-03-05] MEDS: pantoprazole 40 MG vial IV SCH (07:38)
[2021-03-05] MEDS: heparin, porcine 5000 units/ml vial SQ SCH ×2 (07:38→15:57)
[2021-03-05] MEDS: lactose-reduced food (Ensure Enlive) - 237ml bottle PO SCH ×3 (07:39→18:00)
[2021-03-05] MEDS: lactobacillus rhamnosus 10,000 MMU CELLS/CAPSULE PO SCH ×2 (07:39→20:51)
[2021-03-05] MEDS: VITAMIN D TP SCH ×2 (07:46→20:53)
[2021-03-05] MEDS: [UNRECOGNIZED DRUG - OTHER] TP SCH ×2 (07:46→20:53)
[2021-03-05 08:15] LABS: ANISOCYTOSIS 1+; MICROCYTOSIS 1+; PLATELET ESTIMATE DECREASED; TOTAL CELLS COUNTED 100
[2021-03-05] MEDS ORDERED: levoFLOXACIN-Levaquin 750MG/D5 150 ML IV STA (08:20)
[2021-03-05 08:55] LABS: ABG BASE EXCESS -5.3 mmol/L (-2.0-2.0); ABG HCO3 18.7 mmol/L (22.0-26.0); ABG OXYGEN SATURATION 94.5 % (94-97); ABG PCO2 (T) 31.7 mmHg (32.0-45.0); ABG PO2 (T) 71.4 mmHg (75.0-100.0); ALLEN'S TEST POSITIVE; FCOHb 0.2 % (0.0-3.9); FLOW 2 L/min; FMetHb 0.3 % (0.0-1.5); TOTAL HEMOGLOBIN 11.3 G/dl (12.0-16.0)
[2021-03-05] MEDS: normal saline 1000ml 1,000 ML IV SCH ×3 (09:40→23:47)
[2021-03-05] MEDS ORDERED: FENTANYL-0.9 % NACL/PF 100 ML IV PRN (09:40)
--- NOTE | 2021-03-05 09:50 | NUR ---
ANAESTHESIOLOGY TEAM HANDLED INTUBATION DUTIES. Addendum: 03/05/21 at 7[address] Amended: Links added.
[2021-03-05] MEDS: midazolam 100mg in NS 100ml 100 ML IV PRN (09:59)
--- NOTE | 2021-03-05 11:20 | NUR ---
F/u 03/05: Pt intubated this AM for respiratory failure w/ NG in place per EMR. Per initial WOC note yesterday pt has BLE partial thickness cellulitis, R heel STDI, and bilateral gluteal folds stage II pressure areas. Pt pending MRI and surgeon eval for potential of OR per giant tire repairer at rounds. MAP 91 during rounds. TF recs below in case pt not to go to OR and if prolonged intubation. Will continue to monitor for nutrition support needs on vent. Recommendations: 1) IF TF; Vital High Protein at 95ml/hr goal; consider Saurav ONS BID w/ EN for wound healing needs 2) IF TF; additional water 180ml BID w/ Saurav ONS to minimize total fluid intake w/ BLE +4 edema 3) IF TF; PALB Q /; daily wts 4) Routine bowel care 5) Weekly scaled weights 6) upon extubation; advance diet as medically indicated to heart healthy; resume Ensure Enlive TIDWM once PO diet Addendum: 03/05/21 at [address] Amended: Links added.
[2021-03-05 11:27] LABS: ABG BASE EXCESS -7.5 mmol/L (-2.0-2.0); ABG HCO3 18.8 mmol/L (22.0-26.0); ABG OXYGEN SATURATION 94.6 % (94-97); ABG PCO2 (T) 41.4 mmHg (32.0-45.0); ABG PO2 (T) 74.8 mmHg (75.0-100.0); ALLEN'S TEST POSITIVE; FCOHb 0.3 % (0.0-3.9); FMetHb 0.4 % (0.0-1.5); FO2Hb 93.9 % (94-97); PEEP 5 cm H2O; RESPIRATORY RATE 12 b/min; TIDAL VOLUME 450 mL; TOTAL HEMOGLOBIN 11.1 G/dl (12.0-16.0)
[2021-03-05] MEDS ORDERED: phenylephrine 10mg/ml inj. ONE (12:25)
[2021-03-05] MEDS ORDERED: sevoflurane 250ml liquid IH ONE (12:25)
[2021-03-05] MEDS ORDERED: linezolid 600mg/300ml PREMIX 300 ML IV STA (12:37)
--- NOTE | 2021-03-05 12:40 | NUR ---
Patient to the OR via bed with anesthesia and OR team. Patient's father (Orlando) and son (Joshua) bedside. Family members spoke with Dr. Rosales (surgeon), Dr. Grover (infectious disease) and Dr. Goode (anesthesia).
--- NOTE | 2021-03-05 13:00 | NUR ---
Dr Rosales's conversation with Orlando (who is new next kin) consisted of obtaining consent and Orlando signed the consent form. They also spoke about the risks involved with and without surgery. Orlando understood that without surgical intervention the patient will likely from the current infection. Orlando then had a conversation with Dr. Matthews bedside. Dr. Matthews explained to Orlando that unfortunately the patient has been stuck between "a rock and a hard spot" as previously discussed with patient in the wound care clinic and this is due to on going issues with lymphedema and wound care. Orlando expressed confusion about why antibiotic therapy had not been started at a pervious encounter. Dr. Matthews explained that antibiotics have to be used with caution due to the risk of resistance and that typically antibiotics are only started when the bacteria is causing symptomatic infection (i.e. fever, increased wbc, ect.) and the look of the wound (i.e. redness, swelling, warmth, and drainage). Shortly, after this conversation patient's son Joshua came in and asked to also speak with Dr. Matthews. After patient left for surgery Dr. Matthews, Orlando, Joshua and the two RNs caring for patient had a discussion regarding the condition of patient. Joshua expressed his perspective of the patient's lack of care for herself, stating "if my mom would have stopped messing around and taken care of herself then this never would have happened". Joshua also described a time last (09/2020) where the patient had called EMS due to her legs being "really bad" however, when EMS arrived the patient refused to go. Family was educated about the likelihood of multiple take backs to the OR to ensure removal of /infected tissue. Dr. Matthews explained that with this type of infection there tends to be several surgeries involved. Dr. Matthews answered all family questions to their satisfaction and spent a significant amount of time discussing the patient's previous and current condition. Family is in waiting room awaiting call from surgeon.
[2021-03-05] MEDS ORDERED: albumin (Human) 5% 250ml 250 ML IV ONE (13:38)
--- NOTE | 2021-03-05 14:03 | NUR ---
Per , Kushal Rojas solomon (pt's dad) and sherry (pt's son) are going to be the two designated visitors this hospital stay. understands that there are only two designated visitors per patient, per hospital stay.
[2021-03-05 14:30] LABS: ISTAT CREATININE 0.8 mg/dL (0.6-1.1); ISTAT HGB 8.8 g/dl (12.0-16.0); ISTAT IONIZED CALCIUM 1.19 mmol/L (1.03-1.32); ISTAT K 3.5 mmol/L (3.5-5.1); POC BUN/CREATININE RATIO 42.5 (6.6-38.0)
[2021-03-05] MEDS: penicillin G potassium inj 3,000,000 UNIT in normal saline 100ml IV soln 100 ML IV SCH ×3 (15:08→23:56)
[2021-03-05 15:29] LABS: BASOPHILS % (AUTO) 0.2 % (0-1); EOSINOPHILS % (AUTO) 0.1 % (0-6); HEMATOCRIT 26.2 % (35.0-45.0); HEMOGLOBIN 8.4 g/dl (12.0-16.0); LYMPHOCYTES # (AUTO) 1.4 X10'3 (1.1-4.8); LYMPHOCYTES % (AUTO) 5.1 % (21-51); MEAN CORPUSCULAR HEMOGLOBIN 25.3 PG (27.0-31.0); MEAN CORPUSCULAR VOLUME 78.9 FL (78-98); MEAN PLATELET VOLUME 8.4 FL (7.4-10.4); MONOCYTES # (AUTO) 0.2 X10'3 (0-0.9); MONOCYTES % (AUTO) 0.9 % (2-12); NEUTROPHILS % (AUTO) 93.7 % (42-75); PLATELET COUNT 74 X10'3 (140-440); RED BLOOD COUNT 3.32 X10'6 (4.20-5.60); RED CELL DISTRIBUTION WIDTH 16.7 % (11.5-14.5)
[2021-03-05 15:33] LABS: WHITE BLOOD COUNT 26.7 X10'3 (4.5-11.0)
[2021-03-05 15:42] LABS: ALANINE AMINOTRANSFERASE 23 U/L (12-78); ALBUMIN 1.5 G/DL (3.4-5.0); ALBUMIN/GLOBULIN RATIO 0.5 (1.1-1.5); ALKALINE PHOSPHATASE 104 IU/L (46-116); ANION GAP 12 (8-16); ASPARTATE AMINO TRANSFERASE 22 U/L (10-37); BILIRUBIN,TOTAL 1.3 MG/DL (0.1-1.0); BLOOD UREA NITROGEN 39 MG/DL (7-18); BUN/CREATININE RATIO 44.8 (6.6-38.0); CALCIUM 7.9 MG/DL (8.5-10.1); CHLORIDE 108 MMOL/L (99-107); CREATININE 0.87 MG/DL (0.40-0.90); GLUCOSE 182 MG/DL (70-104); MAGNESIUM 1.6 MG/DL (1.5-2.4); PARTIAL THROMBOPLASTIN TIME 49 SECONDS (22-32); PHOSPHORUS 2.6 MG/DL (2.3-4.5); POTASSIUM 3.6 MMOL/L (3.5-5.1); SODIUM 140 MMOL/L (135-145); TOTAL CARBON DIOXIDE 19.8 MMOL/L (24-32); TOTAL PROTEIN 4.5 G/DL (6.4-8.2); eGFR 69 ML/MIN
[2021-03-05 15:50] LABS: ANISOCYTOSIS 1+; MICROCYTOSIS 1+; PLATELET ESTIMATE DECREASED; TOTAL CELLS COUNTED 100
[2021-03-05 15:51] LABS: BURR CELLS 1+; ELLIPTOCYTES FEW
[2021-03-05 16:48] LABS: ABG BASE EXCESS -4.3 mmol/L (-2.0-2.0); ABG HCO3 20.3 mmol/L (22.0-26.0); ABG OXYGEN SATURATION 98.2 % (94-97); ABG PCO2 (T) 35.5 mmHg (32.0-45.0); FCOHb 0.3 % (0.0-3.9); FMetHb 0.4 % (0.0-1.5); FO2Hb 97.5 % (94-97); PEEP 5 cm H2O; RESPIRATORY RATE 12 b/min; TIDAL VOLUME 600 mL; TOTAL HEMOGLOBIN 9.4 G/dl (12.0-16.0)
[2021-03-05] MEDS: morphine/NS 100mg/100ml bag 100 ML IV SCH (17:01)
--- NOTE | 2021-03-05 18:20 | NUR ---
Patient in room CICU 2015. I have received report from Yaquelin MARTIN and had the opportunity to ask questions and assume patient care.
[2021-03-05] MEDS ORDERED: VANCOMYCIN LEVEL IV ONE (18:30)
[2021-03-05] MEDS: sodium chloride inj. 154 MEQ in Dextrose 10%-water IV solution 961.5 ML IV SCH (19:15)
[2021-03-05] MEDS ORDERED: cefTAZidime inj 2 GM in normal saline 100ml IV soln 100 ML IV SCH (20:00)
[2021-03-05] MEDS ORDERED: NORepinephrine 8mg/ 250ml NS 250 ML IV ONE (20:22)
[2021-03-05 20:27] LABS: ANTISTREPTOLYSIN O AB 70.2 IU/mL (0.0-200.0); COMPLEMENT C3, SERUM 45 mg/dL (82-167); COMPLEMENT C4, SERUM 12 mg/dL (12-38); HBSAG SCREEN Negative (Negative); HEPATITIS C ANTIBODY <0.1 s/co ratio (0.0-0.9)
[2021-03-05 20:27] LABS: HEMATOCRIT 24.5 % (35.0-45.0); HEMOGLOBIN 7.9 g/dl (12.0-16.0); MEAN CORPUSCULAR HEMOGLOBIN 25.4 PG (27.0-31.0); MEAN CORPUSCULAR HGB CONC 32.3 g/dL (33.0-36.5); MEAN CORPUSCULAR VOLUME 78.6 FL (78-98); MEAN PLATELET VOLUME 8.6 FL (7.4-10.4); PLATELET COUNT 68 X10'3 (140-440); RED BLOOD COUNT 3.12 X10'6 (4.20-5.60); RED CELL DISTRIBUTION WIDTH 16.4 % (11.5-14.5); WHITE BLOOD COUNT 21.7 X10'3 (4.5-11.0)
[2021-03-05] MEDS: linezolid 600mg/300ml PREMIX 300 ML IV SCH (20:29)
[2021-03-05] MEDS ORDERED: ringers solution, lacted 1,000 ML IV ONE (20:30)
--- NOTE | 2021-03-05 20:30 | NUR ---
Call placed to ICU Tele-Med Dr. Pan d/t PT's BP trending down. Updated him on PT Hx and condition. Orders received to start Levo, give 1L bolus of LR and to transfuse unit of PRBC's. Will continue to monitor.
[2021-03-05] MEDS: insulin glargine (Lantus) pen - multi-dose SQ SCH (21:00)
[2021-03-06] VITALS (24 sets, daily range): BP systolic 13–117; BP diastolic 51–75
[2021-03-06 03:12] LABS: ABG BASE EXCESS -5.4 mmol/L (-2.0-2.0); ABG HCO3 18.8 mmol/L (22.0-26.0); ABG OXYGEN SATURATION 98.3 % (94-97); ABG PCO2 (T) 31.7 mmHg (32.0-45.0); ABG PO2 (T) 118.1 mmHg (75.0-100.0); FCOHb 0.3 % (0.0-3.9); FMetHb 0.4 % (0.0-1.5); FO2Hb 97.6 % (94-97); PEEP 5 cm H2O; RESPIRATORY RATE 12 b/min; TIDAL VOLUME 600 mL; TOTAL HEMOGLOBIN 9.9 G/dl (12.0-16.0)
[2021-03-06 03:32] LABS: PARTIAL THROMBOPLASTIN TIME 44 SECONDS (22-32)
[2021-03-06 03:34] LABS: HEMATOCRIT 27.8 % (35.0-45.0); MEAN CORPUSCULAR HEMOGLOBIN 25.7 PG (27.0-31.0); MEAN CORPUSCULAR HGB CONC 32.4 g/dL (33.0-36.5); MEAN CORPUSCULAR VOLUME 79.5 FL (78-98); MEAN PLATELET VOLUME 8.7 FL (7.4-10.4); PLATELET COUNT 76 X10'3 (140-440); RED BLOOD COUNT 3.49 X10'6 (4.20-5.60); RED CELL DISTRIBUTION WIDTH 16.7 % (11.5-14.5)
[2021-03-06 03:41] LABS: ALANINE AMINOTRANSFERASE 21 U/L (12-78); ALBUMIN 1.4 G/DL (3.4-5.0); ALBUMIN/GLOBULIN RATIO 0.4 (1.1-1.5); ALKALINE PHOSPHATASE 122 IU/L (46-116); ANION GAP 10 (8-16); ASPARTATE AMINO TRANSFERASE 28 U/L (10-37); BLOOD UREA NITROGEN 36 MG/DL (7-18); BUN/CREATININE RATIO 44.4 (6.6-38.0); CALCIUM 7.8 MG/DL (8.5-10.1); CHLORIDE 110 MMOL/L (99-107); CREATININE 0.81 MG/DL (0.40-0.90); GLUCOSE 158 MG/DL (70-104); MAGNESIUM 1.6 MG/DL (1.5-2.4); PHOSPHORUS 1.9 MG/DL (2.3-4.5); POTASSIUM 3.4 MMOL/L (3.5-5.1); SODIUM 141 MMOL/L (135-145); TOTAL CARBON DIOXIDE 21.1 MMOL/L (24-32); TOTAL PROTEIN 4.7 G/DL (6.4-8.2); eGFR 75 ML/MIN
[2021-03-06 03:48] LABS: WHITE BLOOD COUNT 29.2 X10'3 (4.5-11.0)
[2021-03-06] MEDS: midazolam 100mg in NS 100ml 100 ML IV PRN (04:18)
[2021-03-06] MEDS: penicillin G potassium inj 3,000,000 UNIT in normal saline 100ml IV soln 100 ML IV SCH ×5 (04:18→20:27)
[2021-03-06] MEDS ORDERED: potassium phosphate inj 30 MMOL in normal saline 500ml IV soln 500 ML IV ONE (04:50)
[2021-03-06] MEDS: normal saline 1000ml 1,000 ML IV SCH ×4 (05:58→23:32)
[2021-03-06 06:12] LABS: TOTAL CELLS COUNTED 100
[2021-03-06 06:14] LABS: ANISOCYTOSIS 1+; MICROCYTOSIS 1+; PLATELET ESTIMATE DECREASED
--- NOTE | 2021-03-06 06:23 | NUR ---
Problems reprioritized. Patient report given, questions answered & plan of care reviewed with Yaquelin MARTIN and Torie MARTIN.
[2021-03-06] MEDS: heparin, porcine 5000 units/ml vial SQ SCH ×3 (07:17→15:25)
[2021-03-06] MEDS: docusate sod 100mg capsule PO SCH (07:17)
[2021-03-06] MEDS: lactose-reduced food (Ensure Enlive) - 237ml bottle PO SCH ×2 (07:17→12:52)
[2021-03-06] MEDS: linezolid 600mg/300ml PREMIX 300 ML IV SCH ×2 (07:24→20:27)
[2021-03-06] MEDS: pantoprazole 40 MG vial IV SCH (07:24)
[2021-03-06] MEDS: lactobacillus rhamnosus 10,000 MMU CELLS/CAPSULE PO SCH (07:27)
[2021-03-06] MEDS: VITAMIN D TP SCH ×2 (07:28→20:37)
[2021-03-06] MEDS: [UNRECOGNIZED DRUG - OTHER] TP SCH ×2 (07:28→20:37)
[2021-03-06] MEDS: morphine/NS 100mg/100ml bag 100 ML IV SCH (07:58)
[2021-03-06] MEDS ORDERED: levoFLOXACIN-Levaquin 750MG/D5 150 ML IV SCH (08:00)
[2021-03-06 10:26] LABS: A/G RATIO 0.7 (0.7-1.7); ALBUMIN 1.5 g/dL (2.9-4.4); ALBUMIN, UR 10.3 % (.); ALPHA-2-GLOBULIN,UR 16.1 % (.); BETA GLOBULIN 0.4 g/dL (0.7-1.3); BETA GLOBULIN, UR 49.8 % (.); GAMMA GLOBULIN 0.5 g/dL (0.4-1.8); GAMMA GLOBULIN,UR 20.8 % (.); GLOBULIN, TOTAL 2.1 g/dL (2.2-3.9); M-SPIKE Not Observed g/dL (Not Observed); PROTEIN, TOTAL, SERUM 3.6 g/dL (6.0-8.5)
[2021-03-06] MEDS ORDERED: ringers solution, lacted 1,000 ML IV ONE ×2 (10:30→10:40)
--- NOTE | 2021-03-06 11:04 | NUR ---
TF consult: Pt remains intubated at this time. 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 At critical care rounds okayed water flushes for Saurav administration to assist with wound healing. See additional TF recommendations below. Noted that pt receiving routine Zyvox, low tyramine nutrition therapy education deferred until pt stable following extubation if appropriate. Will continue to follow closely. Recommendations: 1) Continuous TF via NG tube using Vital High Protein with 80 mL/hr goal rate. Once at goal to provide 1920 mL total volume/day, 1920 kcal, 168 g protein, and 1605 mL water 2) Saurav BID for wound healing needs; to administer mix Saurav with 120 mL water and flush NG tube with 30 mL water before and after administration of Saurav; no additional water flushes at this time to minimize total fluid intake with LLE 4+ edema, on Lasix 3) Prealbumin q Thursday/; daily wts 4) Routine bowel care 5) Advance diet as medically indicated to heart healthy following extubation; Monitor for ONS needs with PO diet advancement, consider Saurav smoothie BID and Ensure Enlive daily (TID if poor PO intake) 6) Protein and low tyramine nutrition therapy educations once stable following extubation if appropriate Addendum: 03/06/21 at [address] Amended: Links added.
[2021-03-06] MEDS: NORepinephrine 8mg/ 250ml NS 250 ML IV PRN (12:28)
[2021-03-06] MEDS ORDERED: potassium Cl 20 mEq SR tablet NG PRN (13:06)
[2021-03-06] MEDS ORDERED: magnesium hydroxide 30ml (MOM) UD suspension NG PRN (13:07)
[2021-03-06] MEDS ORDERED: acetaminophen 325mg tablet NG PRN (13:07)
[2021-03-06] MEDS ORDERED: dextrose ORAL solution 15 GM/59 ML bottle NG PRN ×2 (13:07)
[2021-03-06] MEDS ORDERED: POTASSIUM BICARB 20meq eff tab 20 MEQ TABLET.EFF PO PRN (13:08)
[2021-03-06] MEDS ORDERED: POTASSIUM BICARB 20meq eff tab 20 MEQ TABLET.EFF NG PRN (13:09)
[2021-03-06 15:42] LABS: ATYPICAL PANCA <1:20 titer (Neg:<1:20); CYTOPLASMIC (C-ANCA) <1:20 titer (Neg:<1:20); PERINUCLEAR (P-ANCA) <1:20 titer (Neg:<1:20)
[2021-03-06 16:04] LABS: PHOSPHORUS 2.8 MG/DL (2.3-4.5); POTASSIUM 3.9 MMOL/L (3.5-5.1)
[2021-03-06] MEDS ORDERED: vancomycin/NS 1 GM ADD-VANTAGE 250 ML X 1 DOSE IV SCH (17:00)
[2021-03-06] MEDS: lactose-reduced food (Ensure Enlive) - 237ml bottle NG SCH (18:00)
--- NOTE | 2021-03-06 18:15 | NUR ---
Patient in room CICU 2015. I have received report from Yaquelin MARTIN and had the opportunity to ask questions and assume patient care.
[2021-03-06] MEDS: docusate sodium 100mg/10ml UD cup NG SCH (20:00)
[2021-03-06] MEDS: lactobacillus rhamnosus 10,000 MMU CELLS/CAPSULE NG SCH (20:27)
[2021-03-06] MEDS: ARGININE/GLUTAMINE/CALCIUM BMB (JUVEN 19.3GM PKT) 1 EACH POWD.PACK PO SCH (20:37)
[2021-03-06] MEDS: insulin glargine (Lantus) pen - multi-dose SQ SCH (21:00)
[2021-03-07] VITALS (24 sets, daily range): BP systolic 94–115; BP diastolic 51–67
[2021-03-07] MEDS: penicillin G potassium inj 3,000,000 UNIT in normal saline 100ml IV soln 100 ML IV SCH ×6 (00:33→20:57)
[2021-03-07 03:04] LABS: HEMATOCRIT 26.8 % (35.0-45.0); MEAN PLATELET VOLUME 8.6 FL (7.4-10.4); RED BLOOD COUNT 3.38 X10'6 (4.20-5.60)
[2021-03-07 03:06] LABS: HEMOGLOBIN 8.7 g/dl (12.0-16.0); MEAN CORPUSCULAR HEMOGLOBIN 25.8 PG (27.0-31.0); MEAN CORPUSCULAR HGB CONC 32.6 g/dL (33.0-36.5); MEAN CORPUSCULAR VOLUME 79.3 FL (78-98); PLATELET COUNT 108 X10'3 (140-440); RED CELL DISTRIBUTION WIDTH 17.1 % (11.5-14.5)
[2021-03-07 03:12] LABS: ALANINE AMINOTRANSFERASE 20 U/L (12-78); ALBUMIN 1.2 G/DL (3.4-5.0); ALBUMIN/GLOBULIN RATIO 0.3 (1.1-1.5); ALKALINE PHOSPHATASE 135 IU/L (46-116); ANION GAP 9 (8-16); ASPARTATE AMINO TRANSFERASE 30 U/L (10-37); BILIRUBIN,TOTAL 0.5 MG/DL (0.1-1.0); CALCIUM 7.5 MG/DL (8.5-10.1); CHLORIDE 113 MMOL/L (99-107); CREATININE 0.65 MG/DL (0.40-0.90); GLUCOSE 139 MG/DL (70-104); MAGNESIUM 1.7 MG/DL (1.5-2.4); PHOSPHORUS 2.5 MG/DL (2.3-4.5); POTASSIUM 4.1 MMOL/L (3.5-5.1); PREALBUMIN 6.4 MG/DL (19-36); SODIUM 145 MMOL/L (135-145); TOTAL CARBON DIOXIDE 23.4 MMOL/L (24-32); eGFR > 90 ML/MIN
[2021-03-07 03:14] LABS: PARTIAL THROMBOPLASTIN TIME 36 SECONDS (22-32)
[2021-03-07 03:23] LABS: BLOOD UREA NITROGEN 30 MG/DL (7-18); BUN/CREATININE RATIO 46.2 (6.6-38.0)
[2021-03-07 03:38] LABS: ABG BASE EXCESS -4.2 mmol/L (-2.0-2.0); ABG HCO3 21.1 mmol/L (22.0-26.0); ABG OXYGEN SATURATION 97.4 % (94-97); ABG PO2 (T) 105.6 mmHg (75.0-100.0); FCOHb 0.3 % (0.0-3.9); FMetHb 0.3 % (0.0-1.5); FO2Hb 96.8 % (94-97); PATIENT TEMPERATURE 38.1; PEEP 5 cm H2O; RESPIRATORY RATE 12 b/min; TIDAL VOLUME 600 mL; TOTAL HEMOGLOBIN 9.8 G/dl (12.0-16.0)
[2021-03-07] MEDS: normal saline 1000ml 1,000 ML IV SCH ×3 (06:02→21:52)
[2021-03-07] MEDS: NORepinephrine 8mg/ 250ml NS 250 ML IV PRN (06:02)
[2021-03-07] MEDS: midazolam 100mg in NS 100ml 100 ML IV PRN (06:02)
--- NOTE | 2021-03-07 07:03 | NUR ---
Problems reprioritized. Patient report given, questions answered & plan of care reviewed with Elizabeth MARTIN.
[2021-03-07 07:10] LABS: ANISOCYTOSIS 1+; MICROCYTOSIS 1+; PLATELET ESTIMATE DECREASED; TOTAL CELLS COUNTED 100
[2021-03-07 07:11] LABS: BURR CELLS 1+; ELLIPTOCYTES FEW; SCHISTOCYTES FEW
[2021-03-07] MEDS: morphine/NS 100mg/100ml bag 100 ML IV SCH (07:54)
[2021-03-07] MEDS: ARGININE/GLUTAMINE/CALCIUM BMB (JUVEN 19.3GM PKT) 1 EACH POWD.PACK PO SCH ×2 (08:00→21:52)
[2021-03-07] MEDS: heparin, porcine 5000 units/ml vial SQ SCH ×3 (08:00→16:00)
[2021-03-07] MEDS: VITAMIN D TP SCH ×2 (08:00→20:57)
[2021-03-07] MEDS: [UNRECOGNIZED DRUG - OTHER] TP SCH ×2 (08:00→20:57)
[2021-03-07] MEDS: lactose-reduced food (Ensure Enlive) - 237ml bottle NG SCH (08:00)
[2021-03-07] MEDS ORDERED: VANCOMYCIN LEVEL IV ONE (08:30)
[2021-03-07] MEDS: docusate sodium 100mg/10ml UD cup NG SCH ×2 (09:54→20:57)
[2021-03-07] MEDS: pantoprazole 40 MG vial IV SCH (09:55)
[2021-03-07] MEDS: linezolid 600mg/300ml PREMIX 300 ML IV SCH ×2 (09:55→20:57)
[2021-03-07] MEDS: lactobacillus rhamnosus 10,000 MMU CELLS/CAPSULE NG SCH ×2 (09:55→20:57)
[2021-03-07] MEDS ORDERED: albumin (Human) 5% 250ml 250 ML IV ONE ×2 (10:15)
--- NOTE | 2021-03-07 10:17 | NUR ---
Dr. Lang at bedside, new orders to replace mg with 2gm, give Albumin 5% 500ml. 5 5
[2021-03-07 12:02] LABS: ANTINUCLEAR ANTIBODIES Positive (Negative)
--- NOTE | 2021-03-07 18:15 | NUR ---
Patient in room CICU 2014. I have received report from Elizabeth MARTIN and had the opportunity to ask questions and assume patient care.
[2021-03-07] MEDS: insulin glargine (Lantus) pen - multi-dose SQ SCH (21:00)
[2021-03-08] VITALS (23 sets, daily range): BP systolic 100–139; BP diastolic 52–68
[2021-03-08] MEDS: penicillin G potassium inj 3,000,000 UNIT in normal saline 100ml IV soln 100 ML IV SCH ×6 (00:31→20:55)
[2021-03-08 03:21] LABS: ABG BASE EXCESS -1.1 mmol/L (-2.0-2.0); ABG HCO3 24.4 mmol/L (22.0-26.0); ABG PCO2 (T) 44.4 mmHg (32.0-45.0); ABG PO2 (T) 92.8 mmHg (75.0-100.0); FCOHb 0.3 % (0.0-3.9); FMetHb 0.3 % (0.0-1.5); FO2Hb 96.4 % (94-97); PATIENT TEMPERATURE 37.1; PEEP 5 cm H2O; RESPIRATORY RATE 12 b/min; TIDAL VOLUME 600 mL
[2021-03-08 03:51] LABS: BASOPHILS # (AUTO) 0.1 X10'3 (0-0.2); EOSINOPHILS # (AUTO) 0.1 X10'3 (0-0.9); EOSINOPHILS % (AUTO) 0.4 % (0-6); HEMATOCRIT 25.4 % (35.0-45.0); HEMOGLOBIN 8.2 g/dl (12.0-16.0); LYMPHOCYTES # (AUTO) 1.2 X10'3 (1.1-4.8); LYMPHOCYTES % (AUTO) 8.2 % (21-51); MEAN CORPUSCULAR HEMOGLOBIN 25.8 PG (27.0-31.0); MEAN CORPUSCULAR HGB CONC 32.2 g/dL (33.0-36.5); MEAN CORPUSCULAR VOLUME 80.1 FL (78-98); MEAN PLATELET VOLUME 8.5 FL (7.4-10.4); MONOCYTES # (AUTO) 0.2 X10'3 (0-0.9); MONOCYTES % (AUTO) 1.6 % (2-12); NEUTROPHILS # (AUTO) 12.6 X10'3 (1.8-7.7); NEUTROPHILS % (AUTO) 88.8 % (42-75); PLATELET COUNT 138 X10'3 (140-440); RED BLOOD COUNT 3.17 X10'6 (4.20-5.60); RED CELL DISTRIBUTION WIDTH 16.6 % (11.5-14.5); WHITE BLOOD COUNT 14.2 X10'3 (4.5-11.0)
[2021-03-08 03:56] LABS: PARTIAL THROMBOPLASTIN TIME 33 SECONDS (22-32)
[2021-03-08 04:09] LABS: ALANINE AMINOTRANSFERASE 22 U/L (12-78); ALBUMIN 1.4 G/DL (3.4-5.0); ALBUMIN/GLOBULIN RATIO 0.4 (1.1-1.5); ALKALINE PHOSPHATASE 123 IU/L (46-116); ANION GAP 8 (8-16); ASPARTATE AMINO TRANSFERASE 50 U/L (10-37); BILIRUBIN,TOTAL 0.6 MG/DL (0.1-1.0); BLOOD UREA NITROGEN 19 MG/DL (7-18); CALCIUM 7.5 MG/DL (8.5-10.1); CHLORIDE 116 MMOL/L (99-107); GLUCOSE 179 MG/DL (70-104); MAGNESIUM 1.5 MG/DL (1.5-2.4); PHOSPHORUS 1.7 MG/DL (2.3-4.5); POTASSIUM 3.5 MMOL/L (3.5-5.1); SODIUM 149 MMOL/L (135-145); TOTAL CARBON DIOXIDE 24.7 MMOL/L (24-32); TOTAL PROTEIN 5.4 G/DL (6.4-8.2); eGFR > 90 ML/MIN
[2021-03-08] MEDS ORDERED: sodium phosphate inj. 15 MMOL in dextrose 5%-water 250 ML IV PRN (04:50)
[2021-03-08] MEDS ORDERED: sodium phosphate inj. 30 MMOL in dextrose 5%-water 250 ML IV PRN (04:50)
[2021-03-08] MEDS: midazolam 100mg in NS 100ml 100 ML IV PRN (05:26)
[2021-03-08] MEDS: morphine/NS 100mg/100ml bag 100 ML IV SCH (05:27)
[2021-03-08] MEDS: NORepinephrine 8mg/ 250ml NS 250 ML IV PRN (05:49)
--- NOTE | 2021-03-08 06:44 | NUR ---
Problems reprioritized. Patient report given, questions answered & plan of care reviewed with Sury MARTIN.
[2021-03-08] MEDS: VITAMIN D TP SCH ×2 (08:00→20:56)
[2021-03-08] MEDS: [UNRECOGNIZED DRUG - OTHER] TP SCH ×2 (08:00→20:56)
[2021-03-08] MEDS: ARGININE/GLUTAMINE/CALCIUM BMB (JUVEN 19.3GM PKT) 1 EACH POWD.PACK PO SCH ×2 (08:00→20:00)
[2021-03-08] MEDS: normal saline 1000ml 1,000 ML IV SCH ×3 (09:12→18:00)
[2021-03-08] MEDS: linezolid 600mg/300ml PREMIX 300 ML IV SCH ×2 (09:13→20:55)
[2021-03-08] MEDS: heparin, porcine 5000 units/ml vial SQ SCH ×3 (09:13→16:43)
[2021-03-08] MEDS: lactobacillus rhamnosus 10,000 MMU CELLS/CAPSULE NG SCH ×2 (09:13→20:55)
[2021-03-08] MEDS: docusate sodium 100mg/10ml UD cup NG SCH ×2 (09:13→20:55)
[2021-03-08] MEDS: pantoprazole 40 MG vial IV SCH (09:13)
[2021-03-08] MEDS ORDERED: potassium phosphate inj 30 MMOL in dextrose 5%-water 250 ML IV PRN (10:45)
[2021-03-08] MEDS ORDERED: potassium phosphate inj 15 MMOL in dextrose 5%-water 250 ML IV PRN (10:45)
--- NOTE | 2021-03-08 11:05 | NUR ---
Reassessment: Pt remains intubated, possibly to OR next week for wound closure and wound vac per RN at critical care rounds. Noted Phos 1.7L however is being replaced per RN. Pt tolerating TF at 80 ml/hr goal rate with 10-142 GRV, WNL. Pt receiving Saurav BID via NG with water flushes for wound healing. Last BM 03/04, receiving routine bowel care and PRN MoM available however not given. No changes to nutrition intervention at this time. Will continue to monitor closely. Recommendations: 1) Continuous TF via NG tube using Vital High Protein with 80 mL/hr goal rate. Once at goal to provide 1920 mL total volume/day, 1920 kcal, 168 g protein, and 1605 mL water 2) Saurav BID for wound healing needs; to administer mix Saurav with 120 mL water and flush NG tube with 30 mL water before and after administration of Saurav; no additional water flushes at this time to minimize total fluid intake with LLE 4+ edema, on Lasix 3) Prealbumin q Thursday/; daily wts 4) Routine bowel care 5) Advance diet as medically indicated to heart healthy following extubation; Monitor for ONS needs with PO diet advancement, consider Saurav smoothie BID and Ensure Enlive daily (TID if poor PO intake) 6) Protein and low tyramine nutrition therapy educations once stable following extubation if appropriate Addendum: 03/08/21 at [address] Amended: Links added. Addendum: 03/08/21 at [address] I have reviewed and agree with note by chemist intern. Vero Quevedo RD
[2021-03-08] MEDS: insulin regular, human U-100 3ml vial - multi-dose SQ SCH ×2 (15:19→21:10)
[2021-03-08] MEDS: acetaminophen 325mg tablet NG PRN (15:56)
--- NOTE | 2021-03-08 17:02 | NUR ---
Pt has been off all sedation and analgesic since [address] Escalera. SBT performed PS 15/5 tolerated well. Wound care completed per Dr. Tyalor orders for Right leg amputation and LLE. Pt remains on PCN and Zyvox. Tylenol 650 mg administered x1 for fever 100.1. Levophed remains infusing 0.02mcg for MAP >65. Morphine 2mg IVP available for PRN Q2 hours. Patient remains on [facility] bed, with frequent repositioning. Pt requires 4 RN's for skin check and reposition. Sacrum and bilateral gluteal area reddened but blanchable. Barrier ointment applied and optifoam to coccyx. Dr. Lang ordered to resume Heparin 5,000 Units SQ q8hr. Pt started on hyperglycemic paty. level 1. BS 176. Tolerated TF well. No BM. Will endorse care to night nurse.
[2021-03-08] MEDS: dexmedetomidine/D5W 100mL 100 ML IV SCH (18:25)
[2021-03-08] MEDS: insulin glargine (Lantus) pen - multi-dose SQ SCH (21:10)
[2021-03-08] MEDS: HYDROmorphone 1 mg/ml syringe IV PRN (21:32)
[2021-03-09] VITALS (23 sets, daily range): BP systolic 101–156; BP diastolic 52–79
[2021-03-09] MEDS: penicillin G potassium inj 3,000,000 UNIT in normal saline 100ml IV soln 100 ML IV SCH ×7 (00:59→23:29)
[2021-03-09] MEDS: heparin, porcine 5000 units/ml vial SQ SCH ×4 (00:59→23:29)
[2021-03-09] MEDS: normal saline 1000ml 1,000 ML IV SCH (02:15)
[2021-03-09] MEDS: HYDROmorphone 1 mg/ml syringe IV PRN ×2 (02:31→20:22)
[2021-03-09] MEDS: insulin regular, human U-100 3ml vial - multi-dose SQ SCH ×4 (02:48→22:00)
[2021-03-09 03:06] LABS: ABG BASE EXCESS 2.3 mmol/L (-2.0-2.0); ABG HCO3 25.8 mmol/L (22.0-26.0); ABG PCO2 (T) 37.1 mmHg (32.0-45.0); ABG PO2 (T) 94.3 mmHg (75.0-100.0); FCOHb 0.3 % (0.0-3.9); FMetHb 0.3 % (0.0-1.5); FO2Hb 96.4 % (94-97); PEEP 5 cm H2O; RESPIRATORY RATE 12 b/min; TIDAL VOLUME 600 mL; TOTAL HEMOGLOBIN 8.5 G/dl (12.0-16.0)
[2021-03-09 03:11] LABS: BASOPHILS % (AUTO) 0.2 % (0-1); EOSINOPHILS % (AUTO) 0.4 % (0-6); HEMATOCRIT 23.9 % (35.0-45.0); HEMOGLOBIN 7.8 g/dl (12.0-16.0); MEAN CORPUSCULAR HEMOGLOBIN 25.8 PG (27.0-31.0); MEAN CORPUSCULAR HGB CONC 32.5 g/dL (33.0-36.5); MEAN CORPUSCULAR VOLUME 79.5 FL (78-98); MEAN PLATELET VOLUME 8.3 FL (7.4-10.4); MONOCYTES # (AUTO) 0.3 X10'3 (0-0.9); MONOCYTES % (AUTO) 2.9 % (2-12); NEUTROPHILS # (AUTO) 9.8 X10'3 (1.8-7.7); NEUTROPHILS % (AUTO) 87.5 % (42-75); PLATELET COUNT 222 X10'3 (140-440); RED CELL DISTRIBUTION WIDTH 16.6 % (11.5-14.5); WHITE BLOOD COUNT 11.2 X10'3 (4.5-11.0)
[2021-03-09 03:24] LABS: PARTIAL THROMBOPLASTIN TIME 31 SECONDS (22-32)
[2021-03-09 03:30] LABS: ALANINE AMINOTRANSFERASE 22 U/L (12-78); ALBUMIN 1.3 G/DL (3.4-5.0); ALBUMIN/GLOBULIN RATIO 0.3 (1.1-1.5); ALKALINE PHOSPHATASE 114 IU/L (46-116); ANION GAP 12 (8-16); ASPARTATE AMINO TRANSFERASE 38 U/L (10-37); BILIRUBIN,TOTAL 0.5 MG/DL (0.1-1.0); BLOOD UREA NITROGEN 18 MG/DL (7-18); BUN/CREATININE RATIO 33.3 (6.6-38.0); CALCIUM 7.1 MG/DL (8.5-10.1); CHLORIDE 114 MMOL/L (99-107); CREATININE 0.54 MG/DL (0.40-0.90); GLUCOSE 195 MG/DL (70-104); MAGNESIUM 1.2 MG/DL (1.5-2.4); PHOSPHORUS 1.5 MG/DL (2.3-4.5); SODIUM 153 MMOL/L (135-145); TOTAL CARBON DIOXIDE 26.7 MMOL/L (24-32); TOTAL PROTEIN 5.8 G/DL (6.4-8.2); eGFR > 90 ML/MIN
[2021-03-09 03:39] LABS: POTASSIUM 2.9 MMOL/L (3.5-5.1)
[2021-03-09] MEDS: dexmedetomidine/D5W 100mL 100 ML IV SCH ×3 (04:36→20:20)
[2021-03-09] MEDS: magnesium 2GM in 50ml NS 50 ML IV PRN ×2 (05:37→22:32)
[2021-03-09] MEDS: morphine 2 MG/ML inj. syringe IV PRN ×3 (05:38→23:30)
[2021-03-09] MEDS: potassium Cl 40MEQ/250ML bag 270 ML IV PRN ×3 (05:41→23:01)
--- NOTE | 2021-03-09 06:37 | NUR ---
RN NotPt waking up and following commands. Anxious and hypertensive; Precedex started. Replacing electrolytes.
--- NOTE | 2021-03-09 07:39 | NUR ---
0700: PLACED PATIENT ON SPONT. 04/04. PATIENTS VT WERE INADEQUATE BELOW 200 ML AND RR INCREASED TO THE 30'S, RSBI AT 150. PATIENT VERY ANXIOUS AND CONTINUED TO HAVE HIGH PEAK PRESSURES. RT PLACED PATIENT BACK ON RATE TO ASSIST WITH PATIENTS WOB. RT WILL CONTINUE TO SBT TOLERATED BY THE PATIENT. Addendum: 03/09/21 at 0742 by R[address] RT Amended: Links added.
[2021-03-09] MEDS: pantoprazole 40 MG vial IV SCH (08:49)
[2021-03-09] MEDS: [UNRECOGNIZED DRUG - OTHER] TP SCH ×2 (08:50→20:21)
[2021-03-09] MEDS: ARGININE/GLUTAMINE/CALCIUM BMB (JUVEN 19.3GM PKT) 1 EACH POWD.PACK PO SCH ×2 (08:50→20:21)
[2021-03-09] MEDS: VITAMIN D TP SCH ×2 (08:50→20:21)
[2021-03-09] MEDS: lactobacillus rhamnosus 10,000 MMU CELLS/CAPSULE NG SCH ×2 (08:50→20:21)
[2021-03-09] MEDS: docusate sodium 100mg/10ml UD cup NG SCH ×3 (08:50→20:20)
[2021-03-09] MEDS: linezolid 600mg/300ml PREMIX 300 ML IV SCH ×2 (09:07→20:20)
[2021-03-09] MEDS: acetaminophen 325mg tablet NG PRN (13:18)
[2021-03-09 21:48] LABS: MAGNESIUM 1.4 MG/DL (1.5-2.4); PHOSPHORUS 1.6 MG/DL (2.3-4.5)
[2021-03-09] MEDS: insulin glargine (Lantus) pen - multi-dose SQ SCH (22:01)
[2021-03-09 22:12] LABS: POTASSIUM 2.7 MMOL/L (3.5-5.1)
[2021-03-10] VITALS (24 sets, daily range): BP systolic 92–186; BP diastolic 49–86
[2021-03-10] MEDS: potassium Cl 40MEQ/250ML bag 270 ML IV PRN ×3 (00:57→21:21)
[2021-03-10] MEDS: dexmedetomidine/D5W 100mL 100 ML IV SCH ×4 (01:10→21:22)
[2021-03-10] MEDS: penicillin G potassium inj 3,000,000 UNIT in normal saline 100ml IV soln 100 ML IV SCH ×5 (03:17→21:21)
[2021-03-10] MEDS: insulin regular, human U-100 3ml vial - multi-dose SQ SCH ×4 (03:20→21:56)
[2021-03-10] MEDS: HYDROmorphone 1 mg/ml syringe IV PRN (03:26)
[2021-03-10 03:35] LABS: BASOPHILS % (AUTO) 0.3 % (0-1); EOSINOPHILS % (AUTO) 0.2 % (0-6); HEMATOCRIT 22.4 % (35.0-45.0); HEMOGLOBIN 7.4 g/dl (12.0-16.0); LYMPHOCYTES # (AUTO) 0.8 X10'3 (1.1-4.8); MEAN CORPUSCULAR HEMOGLOBIN 26.3 PG (27.0-31.0); MEAN CORPUSCULAR HGB CONC 32.9 g/dL (33.0-36.5); MEAN PLATELET VOLUME 7.8 FL (7.4-10.4); MONOCYTES # (AUTO) 0.4 X10'3 (0-0.9); MONOCYTES % (AUTO) 4.3 % (2-12); NEUTROPHILS # (AUTO) 7.2 X10'3 (1.8-7.7); NEUTROPHILS % (AUTO) 86.2 % (42-75); PLATELET COUNT 275 X10'3 (140-440); RED CELL DISTRIBUTION WIDTH 16.2 % (11.5-14.5); WHITE BLOOD COUNT 8.4 X10'3 (4.5-11.0)
[2021-03-10 03:55] LABS: PARTIAL THROMBOPLASTIN TIME 28 SECONDS (22-32)
[2021-03-10 03:59] LABS: ALANINE AMINOTRANSFERASE 17 U/L (12-78); ALBUMIN 1.2 G/DL (3.4-5.0); ALBUMIN/GLOBULIN RATIO 0.3 (1.1-1.5); ALKALINE PHOSPHATASE 89 IU/L (46-116); ANION GAP 5 (8-16); ASPARTATE AMINO TRANSFERASE 26 U/L (10-37); BILIRUBIN,TOTAL 0.3 MG/DL (0.1-1.0); BLOOD UREA NITROGEN 21 MG/DL (7-18); CALCIUM 7.1 MG/DL (8.5-10.1); CHLORIDE 114 MMOL/L (99-107); GLUCOSE 159 MG/DL (70-104); MAGNESIUM 1.8 MG/DL (1.5-2.4); PHOSPHORUS 1.6 MG/DL (2.3-4.5); POTASSIUM 3.2 MMOL/L (3.5-5.1); SODIUM 148 MMOL/L (135-145); TOTAL CARBON DIOXIDE 29.2 MMOL/L (24-32); TOTAL PROTEIN 5.8 G/DL (6.4-8.2); eGFR > 90 ML/MIN
[2021-03-10 04:22] LABS: ABG BASE EXCESS 4.5 mmol/L (-2.0-2.0); ABG HCO3 27.8 mmol/L (22.0-26.0); ABG OXYGEN SATURATION 97.5 % (94-97); ABG PCO2 (T) 35.8 mmHg (32.0-45.0); ABG PO2 (T) 93.7 mmHg (75.0-100.0); FCOHb 0.3 % (0.0-3.9); FMetHb 0.3 % (0.0-1.5); FO2Hb 96.9 % (94-97); PATIENT TEMPERATURE 37.1; PEEP 5 cm H2O; RESPIRATORY RATE 12 b/min; TIDAL VOLUME 600 mL; TOTAL HEMOGLOBIN 8.1 G/dl (12.0-16.0)
[2021-03-10] MEDS ORDERED: potassium phosphate inj 30 MMOL in normal saline 500ml IV soln 500 ML IV ONE (04:35)
--- NOTE | 2021-03-10 06:52 | NUR ---
Patient in room CICU 2014. I have received report from MARIO Huitron and had the opportunity to ask questions and assume patient care.
--- NOTE | 2021-03-10 06:53 | NUR ---
Patient in room CICU 2014. I have received report from MARYLU MARTIN and had the opportunity to ask questions and assume patient care.
[2021-03-10] MEDS: VITAMIN D TP SCH ×2 (08:00→20:00)
[2021-03-10] MEDS: [UNRECOGNIZED DRUG - OTHER] TP SCH ×2 (08:00→20:00)
[2021-03-10] MEDS: lactobacillus rhamnosus 10,000 MMU CELLS/CAPSULE NG SCH ×2 (08:17→21:20)
[2021-03-10] MEDS: docusate sodium 100mg/10ml UD cup NG SCH ×2 (08:17→20:00)
[2021-03-10] MEDS: pantoprazole 40 MG vial IV SCH (08:17)
[2021-03-10] MEDS: heparin, porcine 5000 units/ml vial SQ SCH ×2 (08:18→16:56)
[2021-03-10] MEDS: ARGININE/GLUTAMINE/CALCIUM BMB (JUVEN 19.3GM PKT) 1 EACH POWD.PACK PO SCH ×2 (08:22→21:23)
[2021-03-10] MEDS: linezolid 600mg/300ml PREMIX 300 ML IV SCH ×2 (09:25→21:21)
[2021-03-10] MEDS: morphine 2 MG/ML inj. syringe IV PRN ×2 (10:14→16:38)
[2021-03-10 10:50] LABS: C DIFF ANTIGEN NEGATIVE (NEGATIVE); C DIFF SPECIMEN=DIARRHEA? ACCEPTABLE; C DIFFICILE TOXINS A&B NEGATIVE (Neg)
[2021-03-10 15:35] LABS: MAGNESIUM 1.5 MG/DL (1.5-2.4)
[2021-03-10 15:37] LABS: POTASSIUM 2.9 MMOL/L (3.5-5.1)
--- NOTE | 2021-03-10 16:30 | NUR ---
Dressing to right stump changed per wound care orders. Small arterial bleed noterd. Reported to Dr. Chopra received orders for recheck hemogram this evening and transfuse 1 unit prbc if Hgb < 7.0
[2021-03-10] MEDS: Neutra Phos packet PO PRN (16:36)
[2021-03-10] MEDS: acetaminophen 325mg tablet NG PRN (16:37)
--- NOTE | 2021-03-10 17:00 | NUR ---
Called Dr Lang regarding pt's hypertension. Received orders to restart precedex gtt at low dose. Reviewed ordered prn pain medication. Received order for dilaudid CADD if low dose precedex ineffective at relieving hypertension. Respiratory status to be monitored closely.
[2021-03-10] MEDS ORDERED: naloxone 0.4 mg/ml inj IV PRN (17:35)
[2021-03-10] MEDS: normal saline 1000ml 1,000 ML IV SCH (17:35)
--- NOTE | 2021-03-10 18:16 | NUR ---
Problems reprioritized. Patient report given, questions answered & plan of care reviewed with MARIO Johnson.
[2021-03-10] MEDS: HYDROmorphone/NS 1 mg/ml CADD 50 ML IV SCH ×3 (18:45→23:00)
[2021-03-10] MEDS ORDERED: metoprolol tartrate 1mg/ml inj IV PRN (20:50)
[2021-03-10] MEDS: insulin glargine (Lantus) pen - multi-dose SQ SCH (21:00)
[2021-03-11] VITALS (24 sets, daily range): BP systolic 94–174; BP diastolic 45–83
[2021-03-11] MEDS: heparin, porcine 5000 units/ml vial SQ SCH ×3 (00:57→16:10)
[2021-03-11] MEDS: penicillin G potassium inj 3,000,000 UNIT in normal saline 100ml IV soln 100 ML IV SCH ×6 (00:57→20:31)
[2021-03-11] MEDS: HYDROmorphone/NS 1 mg/ml CADD 50 ML IV SCH ×12 (01:00→23:00)
--- NOTE | 2021-03-11 02:00 | NUR ---
RN Note -Rt AKA Dressing Change Xeroform and ABD dressing replaced with wet-to-dry Kerlix dressing from previous shift. Kerlix adhered to wound. Small amount of bleeding noted. Xeroform placed on inner part of wound, unable to pack securely due to pt pain and agitation. Placed ABD pads and OptiLock for drainage control.
[2021-03-11] MEDS: insulin regular, human U-100 3ml vial - multi-dose SQ SCH ×2 (02:51→21:10)
[2021-03-11 03:43] LABS: BASOPHILS # (AUTO) 0.1 X10'3 (0-0.2); BASOPHILS % (AUTO) 0.5 % (0-1); EOSINOPHILS # (AUTO) 0.1 X10'3 (0-0.9); EOSINOPHILS % (AUTO) 0.5 % (0-6); HEMATOCRIT 23.1 % (35.0-45.0); HEMOGLOBIN 7.6 g/dl (12.0-16.0); LYMPHOCYTES # (AUTO) 0.9 X10'3 (1.1-4.8); LYMPHOCYTES % (AUTO) 8.4 % (21-51); MEAN CORPUSCULAR HEMOGLOBIN 26.6 PG (27.0-31.0); MEAN CORPUSCULAR VOLUME 80.7 FL (78-98); MEAN PLATELET VOLUME 7.7 FL (7.4-10.4); MONOCYTES # (AUTO) 0.4 X10'3 (0-0.9); MONOCYTES % (AUTO) 4.3 % (2-12); NEUTROPHILS % (AUTO) 86.3 % (42-75); PLATELET COUNT 361 X10'3 (140-440); RED BLOOD COUNT 2.86 X10'6 (4.20-5.60); RED CELL DISTRIBUTION WIDTH 16.5 % (11.5-14.5); WHITE BLOOD COUNT 10.5 X10'3 (4.5-11.0)
[2021-03-11] MEDS: dexmedetomidine/D5W 100mL 100 ML IV SCH ×4 (03:57→22:04)
[2021-03-11 04:15] LABS: PARTIAL THROMBOPLASTIN TIME 27 SECONDS (22-32)
[2021-03-11 04:22] LABS: ALANINE AMINOTRANSFERASE 20 U/L (12-78); ALBUMIN 1.3 G/DL (3.4-5.0); ALBUMIN/GLOBULIN RATIO 0.3 (1.1-1.5); ALKALINE PHOSPHATASE 87 IU/L (46-116); ANION GAP 5 (8-16); ASPARTATE AMINO TRANSFERASE 29 U/L (10-37); BILIRUBIN,TOTAL 0.2 MG/DL (0.1-1.0); BLOOD UREA NITROGEN 20 MG/DL (7-18); BUN/CREATININE RATIO 47.6 (6.6-38.0); CALCIUM 7.3 MG/DL (8.5-10.1); CHLORIDE 111 MMOL/L (99-107); CREATININE 0.42 MG/DL (0.40-0.90); GLUCOSE 132 MG/DL (70-104); MAGNESIUM 1.3 MG/DL (1.5-2.4); PHOSPHORUS 2.1 MG/DL (2.3-4.5); POTASSIUM 3.1 MMOL/L (3.5-5.1); PREALBUMIN 13.7 MG/DL (19-36); SODIUM 146 MMOL/L (135-145); TOTAL PROTEIN 5.9 G/DL (6.4-8.2); eGFR > 90 ML/MIN
[2021-03-11] MEDS: Neutra Phos packet PO PRN (05:15)
[2021-03-11] MEDS: POTASSIUM BICARB 20meq eff tab 20 MEQ TABLET.EFF NG PRN ×2 (05:15→10:09)
[2021-03-11] MEDS: magnesium 2GM in 50ml NS 50 ML IV PRN ×2 (05:16→09:55)
[2021-03-11] MEDS: ARGININE/GLUTAMINE/CALCIUM BMB (JUVEN 19.3GM PKT) 1 EACH POWD.PACK PO SCH (08:00)
[2021-03-11] MEDS: linezolid 600mg/300ml PREMIX 300 ML IV SCH ×2 (08:23→20:32)
[2021-03-11] MEDS: lactobacillus rhamnosus 10,000 MMU CELLS/CAPSULE NG SCH ×2 (08:24→20:00)
[2021-03-11] MEDS: [UNRECOGNIZED DRUG - OTHER] TP SCH ×2 (08:24→20:00)
[2021-03-11] MEDS: VITAMIN D TP SCH ×2 (08:24→20:00)
[2021-03-11] MEDS: pantoprazole 40 MG vial IV SCH (08:24)
[2021-03-11] MEDS: docusate sodium 100mg/10ml UD cup NG SCH ×2 (08:24→20:00)
[2021-03-11] MEDS ORDERED: potassium Cl 20 mEq SR tablet PO PRN (10:25)
[2021-03-11] MEDS ORDERED: potassium Cl 40MEQ/250ML bag 250 ML IV PRN (10:25)
[2021-03-11] MEDS ORDERED: potassium CL 10mEq/100ml bag 100 ML IV PRN (10:25)
[2021-03-11] MEDS ORDERED: potassium Cl 40MEQ/1/2NS 520ml 520 ML IV PRN (10:25)
[2021-03-11] MEDS ORDERED: magnesium 2GM in 50ml NS 50 ML IV PRN (10:25)
[2021-03-11] MEDS ORDERED: POTASSIUM BICARB 20meq eff tab 20 MEQ TABLET.EFF NG PRN (11:35)
--- NOTE | 2021-03-11 12:16 | NUR ---
Reassessment: Pt was extubated; awaiting going to the OR for debridement and possible wound vac to her right AKA, per RN. Pt is currently NPO in preparation for the OR; NG still in place previously tolerating tube feed at goal. Last BM 03/10 with routine bowel care available; not currently being given due to NPO status. Will continue to follow for wound healing needs. Recommendations: 1) Continuous TF via NG tube using Vital High Protein with 80 mL/hr goal rate. Once at goal to provide 1920 mL total volume/day, 1920 kcal, 168 g protein, and 1605 mL water 2) Saurav BID for wound healing needs; to administer mix Saurva with 120 mL water and flush NG tube with 30 mL water before and after administration of Saurav; no additional water flushes at this time to minimize total fluid intake with LLE 4+ edema, on Lasix 3) Prealbumin q Thursday/; daily wts 4) Routine bowel care 5) Advance diet as medically indicated to heart healthy following extubation; Monitor for ONS needs with PO diet advancement, consider Saurav smoothie BID and Ensure Enlive daily (TID if poor PO intake) 6) Protein and low tyramine nutrition therapy educations once stable following extubation if appropriate Addendum: 03/11/21 at 1216 by Usha COPELAND STEWARDING SUPERVISOR RD Amended: Links added. Addendum: 03/11/21 at [address] SIRIA blanca w/ above consultant intern note.
[2021-03-11] MEDS: potassium Cl 20mEq/100mL bag 100 ML IV PRN ×2 (12:21→20:30)
[2021-03-11] MEDS: magnesium 4gm in 100ml NS 100 ML IV PRN (12:21)
--- NOTE | 2021-03-11 15:54 | NUR ---
Per Dr Taylor. surgery planned at 1300. Dr Lang updated. Tube feedings and heparin resumed. Family updated.
[2021-03-11 18:11] LABS: POTASSIUM 3.9 MMOL/L (3.5-5.1)
[2021-03-11] MEDS: ARGININE/GLUTAMINE/CALCIUM BMB (JUVEN 19.3GM PKT) 1 EACH POWD.PACK NG SCH (20:00)
[2021-03-11] MEDS: insulin glargine (Lantus) pen - multi-dose SQ SCH (21:04)
--- NOTE | 2021-03-11 21:30 | NUR ---
Patient in room CICU 2014. I have received report from Elizabeth Hoffmann RN and had the opportunity to ask questions and assume patient care.
--- NOTE | 2021-03-11 21:50 | NUR ---
Problems reprioritized. Patient report given, questions answered & plan of care reviewed with Jerrell Salcedo RN.
--- NOTE | 2021-03-11 22:29 | NUR ---
Patient in room CICU 2014. I have received report from Edwin MARTIN and had the opportunity to ask questions and assume patient care.
[2021-03-12] VITALS (16 sets, daily range): BP systolic 15–168; BP diastolic 38–88
[2021-03-12] MEDS: penicillin G potassium inj 3,000,000 UNIT in normal saline 100ml IV soln 100 ML IV SCH ×6 (00:01→21:24)
[2021-03-12] MEDS: heparin, porcine 5000 units/ml vial SQ SCH ×3 (00:01→17:44)
[2021-03-12] MEDS: HYDROmorphone/NS 1 mg/ml CADD 50 ML IV SCH ×12 (01:00→23:00)
[2021-03-12] MEDS: insulin regular, human U-100 3ml vial - multi-dose SQ SCH (02:16)
[2021-03-12] MEDS: dexmedetomidine/D5W 100mL 100 ML IV SCH (03:44)
[2021-03-12] MEDS: [UNRECOGNIZED DRUG - OTHER] TP SCH ×2 (04:00→08:20)
[2021-03-12] MEDS: VITAMIN D TP SCH ×2 (04:00→08:20)
[2021-03-12 04:03] LABS: BASOPHILS # (AUTO) 0.1 X10'3 (0-0.2); BASOPHILS % (AUTO) 0.4 % (0-1); EOSINOPHILS # (AUTO) 0.1 X10'3 (0-0.9); EOSINOPHILS % (AUTO) 0.5 % (0-6); HEMATOCRIT 25.1 % (35.0-45.0); LYMPHOCYTES # (AUTO) 0.8 X10'3 (1.1-4.8); LYMPHOCYTES % (AUTO) 6.9 % (21-51); MEAN CORPUSCULAR VOLUME 81.5 FL (78-98); MEAN PLATELET VOLUME 7.8 FL (7.4-10.4); MONOCYTES # (AUTO) 0.6 X10'3 (0-0.9); MONOCYTES % (AUTO) 4.7 % (2-12); NEUTROPHILS # (AUTO) 10.4 X10'3 (1.8-7.7); NEUTROPHILS % (AUTO) 87.5 % (42-75); PLATELET COUNT 430 X10'3 (140-440); RED BLOOD COUNT 3.08 X10'6 (4.20-5.60); WHITE BLOOD COUNT 11.9 X10'3 (4.5-11.0)
[2021-03-12 04:13] LABS: PARTIAL THROMBOPLASTIN TIME 29 SECONDS (22-32)
[2021-03-12 04:15] LABS: ALANINE AMINOTRANSFERASE 22 U/L (12-78); ALBUMIN 1.4 G/DL (3.4-5.0); ALBUMIN/GLOBULIN RATIO 0.3 (1.1-1.5); ALKALINE PHOSPHATASE 87 IU/L (46-116); ANION GAP 6 (8-16); ASPARTATE AMINO TRANSFERASE 30 U/L (10-37); BILIRUBIN,TOTAL 0.3 MG/DL (0.1-1.0); BLOOD UREA NITROGEN 13 MG/DL (7-18); BUN/CREATININE RATIO 33.3 (6.6-38.0); CALCIUM 7.6 MG/DL (8.5-10.1); CHLORIDE 105 MMOL/L (99-107); CREATININE 0.39 MG/DL (0.40-0.90); GLUCOSE 108 MG/DL (70-104); MAGNESIUM 1.5 MG/DL (1.5-2.4); PHOSPHORUS 2.5 MG/DL (2.3-4.5); POTASSIUM 3.3 MMOL/L (3.5-5.1); SODIUM 141 MMOL/L (135-145); TOTAL CARBON DIOXIDE 30.1 MMOL/L (24-32); TOTAL PROTEIN 5.9 G/DL (6.4-8.2); eGFR > 90 ML/MIN
[2021-03-12] MEDS: magnesium 4gm in 100ml NS 100 ML IV PRN (04:45)
--- NOTE | 2021-03-12 06:12 | NUR ---
Problems reprioritized. Patient report given, questions answered & plan of care reviewed with Amy.
--- NOTE | 2021-03-12 07:07 | NUR ---
Patient in room [facility] 2015. I have received report from Jerrell GARCIA RN and had the opportunity to ask questions and assume patient care. Addendum: 03/12/21 at 0707 by Amy Harper RN Amended: Links added.
[2021-03-12] MEDS: pantoprazole 40 MG vial IV SCH (07:17)
[2021-03-12] MEDS: lactobacillus rhamnosus 10,000 MMU CELLS/CAPSULE NG SCH ×2 (07:17→21:20)
[2021-03-12] MEDS: ARGININE/GLUTAMINE/CALCIUM BMB (JUVEN 19.3GM PKT) 1 EACH POWD.PACK NG SCH ×2 (07:18→20:00)
[2021-03-12] MEDS: docusate sodium 100mg/10ml UD cup NG SCH ×2 (07:24→21:24)
--- NOTE | 2021-03-12 07:43 | NUR ---
Ollie FUNG here to do swallow study. Pt. passed. Pureed food with thin liquids recommended and ordered. RN notified Dr. Lang. Order rec'd to dc NGT. NGT and tube feeds dc'd.
[2021-03-12] MEDS ORDERED: insulin Lispro (HumaLOG) vial - multi-dose SQ PRN (07:45)
[2021-03-12] MEDS: linezolid 600mg/300ml PREMIX 300 ML IV SCH ×2 (08:16→22:27)
--- NOTE | 2021-03-12 10:22 | NUR ---
ROUNDS NOTE: Pt. can transfer to Surgical. No tele monitor needed. Addendum: 03/12/21 at 1033 by Amy Harper RN Dr. Lang aware that arterial line was dc'd due to being dampened.
--- NOTE | 2021-03-12 10:34 | NUR ---
Pt. requesting ice pack for neck. Ice pack provided. Requesting ice water frequently, ice water provided. Given watered-down cranberry juice per request.
--- NOTE | 2021-03-12 11:45 | NUR ---
Patient's father at bedside to visit. Pt. has orders to transfer to Surgical Floor today.
--- NOTE | 2021-03-12 12:49 | NUR ---
Report given to Spring MARTIN on surgical floor.
--- NOTE | 2021-03-12 13:37 | NUR ---
Pt. to room 353 on Surgical Floor. hot dip plater Bina present upon arrival. All belongings, meds and chart with pt. Pt's father aware of transfer.
[2021-03-12] MEDS: normal saline 1000ml 1,000 ML IV SCH (17:35)
--- NOTE | 2021-03-12 17:49 | NUR ---
Patient in room [facility] 353. I have received report from MARIO Reyes from the [facility] and had the opportunity to ask questions and assume patient care. Addendum: 03/12/21 at 1751 by Nelli Blackburn RN [id number] patient was transferred from [facility] and report was received.
--- NOTE | 2021-03-12 18:36 | NUR ---
Patient in room [facility]E 353. I have received report from FRANKIE MARTIN & ADRI MARTIN and had the opportunity to ask questions and assume patient care. Addendum: 03/12/21 at 1837 by Graciela Mazariegos RN Amended: Links added.
--- NOTE | 2021-03-12 19:27 | NUR ---
Problems reprioritized. Patient report given, questions answered & plan of care reviewed with MARIO Owens.
[2021-03-12] MEDS: insulin glargine (Lantus) pen - multi-dose SQ SCH (21:00)
[2021-03-12] MEDS: magnesium Cl slow-release 64mg tablet PO PRN (21:24)
[2021-03-12] MEDS: Neutra Phos packet PO PRN (21:24)
[2021-03-12] MEDS ORDERED: HYDROmorphone 1 mg/ml syringe IV ONE (22:20)
[2021-03-13] VITALS: BP 147/73
[2021-03-13] MEDS: HYDROmorphone/NS 1 mg/ml CADD 50 ML IV SCH ×12 (01:00→23:00)
[2021-03-13] MEDS: heparin, porcine 5000 units/ml vial SQ SCH ×3 (01:08→16:07)
[2021-03-13] MEDS: penicillin G potassium inj 3,000,000 UNIT in normal saline 100ml IV soln 100 ML IV SCH ×6 (01:08→23:05)
--- NOTE | 2021-03-13 04:00 | NUR ---
0400 skin care done pt inc of stool and rectal tube moved up and irrigated. a&d and calzyme cream used on her skin and then with 3 people dressing change done to right leg stump. noted one area bleed and pressure applied xeroform guaze, optilocks and abds used as ordered. pt was premedicated prior to doing wound care with diladid iv 1mg and then used her cadd as well. pt did well during procedure. vora care done. creams applied to arms and legs as well. irrigated rectal tube with 400cc of water to keep it folowing had 100 of actual stool out tonight.
--- NOTE | 2021-03-13 06:13 | NUR ---
labs drawn from picc line. flushed easily.
[2021-03-13 06:37] LABS: BASOPHILS # (AUTO) 0.1 X10'3 (0-0.2); BASOPHILS % (AUTO) 0.8 % (0-1); EOSINOPHILS % (AUTO) 0.4 % (0-6); HEMOGLOBIN 8.2 g/dl (12.0-16.0); LYMPHOCYTES # (AUTO) 0.9 X10'3 (1.1-4.8); LYMPHOCYTES % (AUTO) 7.3 % (21-51); MEAN CORPUSCULAR HEMOGLOBIN 26.4 PG (27.0-31.0); MEAN CORPUSCULAR HGB CONC 32.9 g/dL (33.0-36.5); MEAN CORPUSCULAR VOLUME 80.4 FL (78-98); MEAN PLATELET VOLUME 7.5 FL (7.4-10.4); MONOCYTES # (AUTO) 0.9 X10'3 (0-0.9); MONOCYTES % (AUTO) 7.3 % (2-12); NEUTROPHILS # (AUTO) 10.2 X10'3 (1.8-7.7); NEUTROPHILS % (AUTO) 84.2 % (42-75); PLATELET COUNT 501 X10'3 (140-440); RED CELL DISTRIBUTION WIDTH 16.9 % (11.5-14.5); WHITE BLOOD COUNT 12.1 X10'3 (4.5-11.0)
[2021-03-13 06:45] LABS: PARTIAL THROMBOPLASTIN TIME 29 SECONDS (22-32)
[2021-03-13 06:55] LABS: ALANINE AMINOTRANSFERASE 21 U/L (12-78); ALBUMIN 1.4 G/DL (3.4-5.0); ALBUMIN/GLOBULIN RATIO 0.3 (1.1-1.5); ALKALINE PHOSPHATASE 88 IU/L (46-116); ANION GAP 8 (8-16); ASPARTATE AMINO TRANSFERASE 30 U/L (10-37); BILIRUBIN,TOTAL 0.3 MG/DL (0.1-1.0); BLOOD UREA NITROGEN 6 MG/DL (7-18); BUN/CREATININE RATIO 15.8 (6.6-38.0); CALCIUM 7.9 MG/DL (8.5-10.1); CHLORIDE 102 MMOL/L (99-107); CREATININE 0.38 MG/DL (0.40-0.90); GLUCOSE 136 MG/DL (70-104); MAGNESIUM 1.3 MG/DL (1.5-2.4); PHOSPHORUS 2.4 MG/DL (2.3-4.5); SODIUM 137 MMOL/L (135-145); TOTAL CARBON DIOXIDE 27.2 MMOL/L (24-32); eGFR > 90 ML/MIN
[2021-03-13 07:00] VITALS: BP 156/83
--- NOTE | 2021-03-13 07:11 | NUR ---
Problems reprioritized. Patient report given, questions answered & plan of care reviewed with JANAE MARTIN. Addendum: 03/13/21 at 0712 by Graciela Mazariegos RN Amended: Links added.
--- NOTE | 2021-03-13 07:23 | NUR ---
Patient in room [facility] 353. I have received report from brad MARTIN and had the opportunity to ask questions and assume patient care.
[2021-03-13] MEDS ORDERED: potassium Cl 40MEQ/250ML bag 270 ML IV PRN (07:26)
[2021-03-13] MEDS: VITAMIN D TP SCH ×2 (08:00→20:00)
[2021-03-13] MEDS: ARGININE/GLUTAMINE/CALCIUM BMB (JUVEN 19.3GM PKT) 1 EACH POWD.PACK NG SCH (08:00)
[2021-03-13] MEDS: [UNRECOGNIZED DRUG - OTHER] TP SCH ×2 (08:00→20:00)
[2021-03-13] MEDS: docusate sodium 100mg/10ml UD cup NG SCH (08:52)
[2021-03-13] MEDS: linezolid 600mg/300ml PREMIX 300 ML IV SCH ×2 (08:52→20:04)
[2021-03-13] MEDS: lactobacillus rhamnosus 10,000 MMU CELLS/CAPSULE NG SCH ×2 (08:52→20:00)
[2021-03-13] MEDS: pantoprazole 40 MG vial IV SCH (08:54)
[2021-03-13] MEDS ORDERED: potassium Cl 20 mEq SR tablet PO PRN (08:57)
[2021-03-13] MEDS: magnesium Cl slow-release 64mg tablet PO PRN ×2 (09:29→20:04)
[2021-03-13] MEDS ORDERED: potassium Cl 40MEQ/1/2NS 520ml 520 ML IV PRN (10:25)
[2021-03-13] MEDS ORDERED: magnesium 4gm in 100ml NS 100 ML IV PRN (10:25)
[2021-03-13] MEDS ORDERED: magnesium Cl slow-release 64mg tablet PO PRN (10:25)
[2021-03-13 11:00] VITALS: BP 148/77
[2021-03-13] MEDS: potassium Cl 20 mEq SR tablet PO PRN ×2 (11:25→17:37)
--- NOTE | 2021-03-13 12:00 | NUR ---
Patient in room [facility] 353. I have received report from Nadya MARTIN and had the opportunity to ask questions and assume patient care.
[2021-03-13] MEDS ORDERED: magnesium hydroxide 30ml (MOM) UD suspension PO PRN (13:39)
[2021-03-13] MEDS ORDERED: acetaminophen 325mg tablet PO PRN ×2 (13:40)
[2021-03-13] MEDS ORDERED: docusate sodium 100mg/10ml UD cup PO SCH (13:40)
[2021-03-13] MEDS ORDERED: dextrose ORAL solution 15 GM/59 ML bottle PO PRN ×2 (13:40)
--- NOTE | 2021-03-13 18:17 | NUR ---
Problems reprioritized. Patient report given, questions answered & plan of care reviewed with Nadya MARTIN.
--- NOTE | 2021-03-13 18:20 | NUR ---
patient remains on IV ABX, rectal tube and IDC in place. wound care done. patient bleeding mod amount from distal left portion of stump on left side. Reinforced with optilocks and ABD, will continue to monitor. continues with dilaudid cadd effective for pain control. Tearful at times, states she is shocked and sad over losing leg. father and spouse present at times.
--- NOTE | 2021-03-13 19:09 | NUR ---
Problems reprioritized. Patient report given, questions answered & plan of care reviewed with jayne/alan MARTIN.
--- NOTE | 2021-03-13 19:09 | NUR ---
Student documentation: I have reviewed and agree with all interventions, assessments performed and documented by venessa.
--- NOTE | 2021-03-13 19:12 | NUR ---
Patient in room [facility] 353. I have received report from MARIO Covington and had the opportunity to ask questions and assume patient care.
--- NOTE | 2021-03-13 19:12 | NUR ---
Patient in room [facility] 353. I have received report from Nadya MARTIN and had the opportunity to ask questions and assume patient care.
[2021-03-13 20:00] VITALS: BP 127/82
[2021-03-13] MEDS: docusate sod 100mg capsule PO SCH (20:02)
[2021-03-13] MEDS: ARGININE/GLUTAMINE/CALCIUM BMB (JUVEN 19.3GM PKT) 1 EACH POWD.PACK PO SCH (20:03)
[2021-03-13] MEDS: insulin glargine (Lantus) pen - multi-dose SQ SCH (21:00)
[2021-03-13 23:45] VITALS: BP 126/78
[2021-03-14] MEDS: penicillin G potassium inj 3,000,000 UNIT in normal saline 100ml IV soln 100 ML IV SCH ×6 (00:16→21:04)
[2021-03-14] MEDS: heparin, porcine 5000 units/ml vial SQ SCH ×3 (00:16→16:00)
[2021-03-14] MEDS: HYDROmorphone/NS 1 mg/ml CADD 50 ML IV SCH ×12 (01:00→23:00)
--- NOTE | 2021-03-14 06:52 | NUR ---
Problems reprioritized. Patient report given, questions answered & plan of care reviewed with Akanksha MARTIN.
--- NOTE | 2021-03-14 06:54 | NUR ---
Problems reprioritized. Patient report given, questions answered & plan of care reviewed with MARIO Vale.
--- NOTE | 2021-03-14 07:28 | NUR ---
Patient in room [facility] 353. I have received report from MARIO Garber and had the opportunity to ask questions and assume patient care.
[2021-03-14] MEDS: pantoprazole 40 MG vial IV SCH (07:43)
[2021-03-14] MEDS: linezolid 600mg/300ml PREMIX 300 ML IV SCH ×2 (07:47→21:05)
[2021-03-14] MEDS: docusate sod 100mg capsule PO SCH ×2 (07:50→21:03)
[2021-03-14] MEDS: lactobacillus rhamnosus 10,000 MMU CELLS/CAPSULE NG SCH ×2 (07:50→21:02)
[2021-03-14] MEDS: normal saline 1000ml 1,000 ML IV SCH (07:51)
[2021-03-14] MEDS: ARGININE/GLUTAMINE/CALCIUM BMB (JUVEN 19.3GM PKT) 1 EACH POWD.PACK PO SCH ×2 (08:00→20:00)
[2021-03-14 10:32] LABS: BASOPHILS # (AUTO) 0.1 X10'3 (0-0.2); BASOPHILS % (AUTO) 0.8 % (0-1); EOSINOPHILS # (AUTO) 0.1 X10'3 (0-0.9); EOSINOPHILS % (AUTO) 0.7 % (0-6); HEMATOCRIT 24.1 % (35.0-45.0); LYMPHOCYTES # (AUTO) 0.6 X10'3 (1.1-4.8); LYMPHOCYTES % (AUTO) 8.1 % (21-51); MEAN CORPUSCULAR HEMOGLOBIN 26.9 PG (27.0-31.0); MEAN CORPUSCULAR VOLUME 81.3 FL (78-98); MEAN PLATELET VOLUME 7.2 FL (7.4-10.4); MONOCYTES # (AUTO) 0.8 X10'3 (0-0.9); NEUTROPHILS % (AUTO) 79.4 % (42-75); PLATELET COUNT 481 X10'3 (140-440); RED BLOOD COUNT 2.97 X10'6 (4.20-5.60); RED CELL DISTRIBUTION WIDTH 16.8 % (11.5-14.5); WHITE BLOOD COUNT 7.6 X10'3 (4.5-11.0)
[2021-03-14 10:42] LABS: ALANINE AMINOTRANSFERASE 21 U/L (12-78); ALBUMIN 1.5 G/DL (3.4-5.0); ALBUMIN/GLOBULIN RATIO 0.3 (1.1-1.5); ALKALINE PHOSPHATASE 84 IU/L (46-116); ANION GAP 5 (8-16); ASPARTATE AMINO TRANSFERASE 29 U/L (10-37); BILIRUBIN,TOTAL 0.2 MG/DL (0.1-1.0); BLOOD UREA NITROGEN 3 MG/DL (7-18); BUN/CREATININE RATIO 8.1 (6.6-38.0); CALCIUM 8.1 MG/DL (8.5-10.1); CHLORIDE 101 MMOL/L (99-107); CREATININE 0.37 MG/DL (0.40-0.90); GLUCOSE 136 MG/DL (70-104); MAGNESIUM 1.1 MG/DL (1.5-2.4); PHOSPHORUS 2.2 MG/DL (2.3-4.5); POTASSIUM 3.2 MMOL/L (3.5-5.1); PREALBUMIN 13.1 MG/DL (19-36); SODIUM 137 MMOL/L (135-145); TOTAL CARBON DIOXIDE 31.4 MMOL/L (24-32); eGFR > 90 ML/MIN
--- NOTE | 2021-03-14 11:52 | NUR ---
Student documentation: I have reviewed and agree with all interventions, assessments performed and documented by SN Jere.
[2021-03-14 12:00] VITALS: BP 158/88
[2021-03-14] MEDS: magnesium Cl slow-release 64mg tablet PO PRN (12:09)
--- NOTE | 2021-03-14 13:20 | NUR ---
Dr Sam in to see pt. New order to start wound Vac. wound care nurse informed.
[2021-03-14] MEDS: CADD PCA waste documentation MC PRN (14:13)
[2021-03-14] MEDS ORDERED: Dakins solution (1/4 strength) 473ml solution TP PRN (14:55)
--- NOTE | 2021-03-14 15:00 | NUR ---
Reassessment: Patient s/p BSS 03/[address] recs pureed food with thin liquids. Pt with average 50% PO intake. Saurav remains active in EMR, d/w dietary to send Saurav strawberry banana smoothies BIDBD. Pt currently NPO for OR. To get a wound VAC per MD per RN notes. Attempted visit with pt at bedside for protein and low tyramine nutrition therapy educations however pt unavailable, will try again at another time. LBM 03/13, receiving routine bowel care. Will continue to follow closely and monitor need for further nutrition intervention with diet advancement. Recommendations: 1) Advance to pureed diet with thin liquids per ST recs as medically indicated; monitor need for f/u BSS with ST 2) [place] banana Saurav smoothie BIDBD with diet advancement 3) Monitor need for additional ONS 4) Bowel care per rx 5) Routine scaled weights 6) Protein and low tyramine nutrition therapy educations once stable Addendum: 03/14/21 at [address] Amended: Links added.
[2021-03-14] MEDS ORDERED: loperamide 2mg capsule PO PRN (15:25)
[2021-03-14] MEDS: [UNRECOGNIZED DRUG - OTHER] TP SCH ×2 (17:06→20:00)
[2021-03-14] MEDS: VITAMIN D TP SCH ×2 (17:06→20:00)
[2021-03-14 17:23] LABS: PARTIAL THROMBOPLASTIN TIME 29 SECONDS (22-32)
--- NOTE | 2021-03-14 19:05 | NUR ---
Patient in room MOE 353. I have received report from MARIO Vale and had the opportunity to ask questions and assume patient care.
--- NOTE | 2021-03-14 19:10 | NUR ---
Patient in room MOE 353. I have received report from Akanksha MARTIN and had the opportunity to ask questions and assume patient care.
--- NOTE | 2021-03-14 19:24 | NUR ---
Problems reprioritized. Patient report given, questions answered & plan of care reviewed with MARIO Garber.
[2021-03-14 20:00] VITALS: BP 117/68
[2021-03-14] MEDS: insulin glargine (Lantus) pen - multi-dose SQ SCH (21:00)
[2021-03-15] VITALS: BP 116/72
[2021-03-15] MEDS: penicillin G potassium inj 3,000,000 UNIT in normal saline 100ml IV soln 100 ML IV SCH ×6 (00:32→22:07)
[2021-03-15] MEDS: heparin, porcine 5000 units/ml vial SQ SCH ×3 (00:34→16:47)
[2021-03-15] MEDS: magnesium Cl slow-release 64mg tablet PO PRN ×3 (00:48→22:19)
[2021-03-15] MEDS: HYDROmorphone/NS 1 mg/ml CADD 50 ML IV SCH ×12 (00:50→23:00)
[2021-03-15 05:51] LABS: BASOPHILS # (AUTO) 0.1 X10'3 (0-0.2); EOSINOPHILS # (AUTO) 0.1 X10'3 (0-0.9); EOSINOPHILS % (AUTO) 1.5 % (0-6); HEMATOCRIT 22.9 % (35.0-45.0); HEMOGLOBIN 7.7 g/dl (12.0-16.0); LYMPHOCYTES # (AUTO) 0.7 X10'3 (1.1-4.8); LYMPHOCYTES % (AUTO) 11.8 % (21-51); MEAN CORPUSCULAR HEMOGLOBIN 27.3 PG (27.0-31.0); MEAN CORPUSCULAR HGB CONC 33.5 g/dL (33.0-36.5); MEAN CORPUSCULAR VOLUME 81.3 FL (78-98); MEAN PLATELET VOLUME 7.1 FL (7.4-10.4); MONOCYTES # (AUTO) 0.9 X10'3 (0-0.9); MONOCYTES % (AUTO) 15.5 % (2-12); NEUTROPHILS # (AUTO) 4.2 X10'3 (1.8-7.7); NEUTROPHILS % (AUTO) 70.2 % (42-75); PLATELET COUNT 449 X10'3 (140-440); RED BLOOD COUNT 2.82 X10'6 (4.20-5.60); RED CELL DISTRIBUTION WIDTH 17.6 % (11.5-14.5); WHITE BLOOD COUNT 5.9 X10'3 (4.5-11.0)
[2021-03-15 05:57] LABS: PARTIAL THROMBOPLASTIN TIME 31 SECONDS (22-32)
[2021-03-15 05:59] LABS: ALANINE AMINOTRANSFERASE 20 U/L (12-78); ALBUMIN 1.5 G/DL (3.4-5.0); ALBUMIN/GLOBULIN RATIO 0.3 (1.1-1.5); ALKALINE PHOSPHATASE 81 IU/L (46-116); ANION GAP 5 (8-16); ASPARTATE AMINO TRANSFERASE 26 U/L (10-37); BILIRUBIN,TOTAL 0.2 MG/DL (0.1-1.0); BLOOD UREA NITROGEN 5 MG/DL (7-18); BUN/CREATININE RATIO 12.5 (6.6-38.0); CHLORIDE 102 MMOL/L (99-107); GLUCOSE 127 MG/DL (70-104); PHOSPHORUS 2.4 MG/DL (2.3-4.5); POTASSIUM 3.4 MMOL/L (3.5-5.1); SODIUM 137 MMOL/L (135-145); TOTAL CARBON DIOXIDE 30.2 MMOL/L (24-32); TOTAL PROTEIN 5.9 G/DL (6.4-8.2); eGFR > 90 ML/MIN
--- NOTE | 2021-03-15 06:23 | NUR ---
Problems reprioritized. Patient report given, questions answered & plan of care reviewed with Akanksha MARTIN.
--- NOTE | 2021-03-15 06:25 | NUR ---
PAGER ID: [phone] MESSAGE: [facility] [id number]. Pt Cler . RM: 353-A Critical Lab: Mag 1.0. thanks
--- NOTE | 2021-03-15 06:31 | NUR ---
Problems reprioritized. Patient report given, questions answered & plan of care reviewed with MARIO Vale.
[2021-03-15] MEDS: lactobacillus rhamnosus 10,000 MMU CELLS/CAPSULE NG SCH ×2 (07:30→22:15)
[2021-03-15] MEDS: potassium Cl 20 mEq SR tablet PO PRN ×3 (07:30→22:19)
[2021-03-15] MEDS: pantoprazole 40 MG vial IV SCH (07:31)
[2021-03-15] MEDS: linezolid 600mg/300ml PREMIX 300 ML IV SCH ×2 (07:39→20:50)
[2021-03-15] MEDS: docusate sod 100mg capsule PO SCH ×2 (07:48→22:15)
[2021-03-15 08:00] VITALS: BP 139/70
[2021-03-15] MEDS: ARGININE/GLUTAMINE/CALCIUM BMB (JUVEN 19.3GM PKT) 1 EACH POWD.PACK PO SCH ×2 (08:00→20:00)
[2021-03-15 12:00] VITALS: BP 134/78
[2021-03-15 18:00] VITALS: BP 146/81
--- NOTE | 2021-03-15 18:05 | NUR ---
Patient in room MOE 353. I have received report from MARIO Vale and had the opportunity to ask questions and assume patient care.
--- NOTE | 2021-03-15 19:03 | NUR ---
Problems reprioritized. Patient report given, questions answered & plan of care reviewed with MARIO Ga.
[2021-03-15] MEDS: insulin glargine (Lantus) pen - multi-dose SQ SCH (20:55)
[2021-03-15] MEDS: vitamin A & D ointment-NF 1 APPLIC TUBE TP SCH (22:15)
[2021-03-15] MEDS ORDERED: HYDROmorphone inj. 0.5 MG/0.5 ML DISP.SYRIN IV ONE (23:45)
[2021-03-16] VITALS: BP 141/72
[2021-03-16] MEDS: penicillin G potassium inj 3,000,000 UNIT in normal saline 100ml IV soln 100 ML IV SCH ×6 (00:04→20:37)
[2021-03-16] MEDS: heparin, porcine 5000 units/ml vial SQ SCH ×3 (00:52→16:10)
[2021-03-16] MEDS: HYDROmorphone/NS 1 mg/ml CADD 50 ML IV SCH ×12 (00:55→23:00)
[2021-03-16] MEDS: normal saline 1000ml 1,000 ML IV SCH (04:24)
[2021-03-16 05:49] LABS: BASOPHILS # (AUTO) 0.1 X10'3 (0-0.2); BASOPHILS % (AUTO) 1.2 % (0-1); EOSINOPHILS # (AUTO) 0.1 X10'3 (0-0.9); EOSINOPHILS % (AUTO) 1.5 % (0-6); HEMATOCRIT 25.1 % (35.0-45.0); HEMOGLOBIN 8.5 g/dl (12.0-16.0); LYMPHOCYTES # (AUTO) 0.6 X10'3 (1.1-4.8); LYMPHOCYTES % (AUTO) 11.7 % (21-51); MEAN CORPUSCULAR HEMOGLOBIN 27.4 PG (27.0-31.0); MEAN CORPUSCULAR HGB CONC 33.9 g/dL (33.0-36.5); MEAN CORPUSCULAR VOLUME 80.9 FL (78-98); MEAN PLATELET VOLUME 7.2 FL (7.4-10.4); MONOCYTES # (AUTO) 0.9 X10'3 (0-0.9); MONOCYTES % (AUTO) 16.8 % (2-12); NEUTROPHILS # (AUTO) 3.5 X10'3 (1.8-7.7); NEUTROPHILS % (AUTO) 68.8 % (42-75); PLATELET COUNT 457 X10'3 (140-440); RED CELL DISTRIBUTION WIDTH 18.7 % (11.5-14.5); WHITE BLOOD COUNT 5.1 X10'3 (4.5-11.0)
[2021-03-16 06:33] LABS: ALANINE AMINOTRANSFERASE 18 U/L (12-78); ALBUMIN 1.4 G/DL (3.4-5.0); ALBUMIN/GLOBULIN RATIO 0.3 (1.1-1.5); ALKALINE PHOSPHATASE 82 IU/L (46-116); ANION GAP 6 (8-16); ASPARTATE AMINO TRANSFERASE 29 U/L (10-37); BILIRUBIN,TOTAL 0.2 MG/DL (0.1-1.0); BLOOD UREA NITROGEN 4 MG/DL (7-18); BUN/CREATININE RATIO 10.3 (6.6-38.0); CALCIUM 8.2 MG/DL (8.5-10.1); CHLORIDE 99 MMOL/L (99-107); CREATININE 0.39 MG/DL (0.40-0.90); GLUCOSE 129 MG/DL (70-104); MAGNESIUM 1.2 MG/DL (1.5-2.4); POTASSIUM 3.1 MMOL/L (3.5-5.1); SODIUM 135 MMOL/L (135-145); TOTAL PROTEIN 6.1 G/DL (6.4-8.2); eGFR > 90 ML/MIN
--- NOTE | 2021-03-16 06:34 | NUR ---
Problems reprioritized. Patient report given, questions answered & plan of care reviewed with MARIO Collado.
[2021-03-16 06:49] LABS: ANISOCYTOSIS 2+; MICROCYTOSIS 1+; PLATELET ESTIMATE INCREASED; TOTAL CELLS COUNTED 100
[2021-03-16 08:00] VITALS: BP 141/71
[2021-03-16] MEDS: ARGININE/GLUTAMINE/CALCIUM BMB (JUVEN 19.3GM PKT) 1 EACH POWD.PACK PO SCH ×2 (08:00→20:00)
[2021-03-16] MEDS: vitamin A & D ointment-NF 1 APPLIC TUBE TP SCH ×2 (08:00→22:07)
[2021-03-16] MEDS: pantoprazole 40 MG vial IV SCH (08:28)
[2021-03-16] MEDS: lactobacillus rhamnosus 10,000 MMU CELLS/CAPSULE NG SCH ×2 (08:29→20:37)
[2021-03-16] MEDS: docusate sod 100mg capsule PO SCH ×2 (08:29→20:37)
[2021-03-16] MEDS: linezolid 600mg/300ml PREMIX 300 ML IV SCH ×2 (11:17→22:54)
[2021-03-16] MEDS: magnesium Cl slow-release 64mg tablet PO PRN ×2 (11:53→22:05)
[2021-03-16] MEDS ORDERED: potassium Cl 40MEQ/1/2NS 520ml 520 ML IV PRN (11:55)
--- NOTE | 2021-03-16 17:03 | NUR ---
Patient doesn't have an NG currently to place medications.
[2021-03-16 18:00] VITALS: BP 142/76
--- NOTE | 2021-03-16 18:16 | NUR ---
Problems reprioritized. Patient report given, questions answered & plan of care reviewed with Jaskaran MARTIN and Ankit MARTIN.
--- NOTE | 2021-03-16 18:26 | NUR ---
I have received report from MARIO Collado and had the opportunity to ask questions and assume patient care.
--- NOTE | 2021-03-16 18:27 | NUR ---
Patient in room MOE 353. I have received report from Tobias MARTIN and had the opportunity to ask questions and assume patient care. Ankit MARTIN
[2021-03-16] MEDS: insulin glargine (Lantus) pen - multi-dose SQ SCH (21:00)
[2021-03-16 23:45] VITALS: BP 129/68
[2021-03-17] MEDS: heparin, porcine 5000 units/ml vial SQ SCH ×4 (00:32→23:46)
[2021-03-17] MEDS: HYDROmorphone/NS 1 mg/ml CADD 50 ML IV SCH ×12 (01:00→23:00)
--- NOTE | 2021-03-17 01:15 | NUR ---
Midnight vitals on patient showed a temperature of 101.0 F, and oxygen saturation at 85%. head of bed was raised, nasal cannula was increased to 4L, IS was used. Pulse Ox masood to 92%. RT was paged and administered treatment. Patient was given Tylenol for fever. RT suggested patient receive expectorant, i.e. guaifenesin. Hospitalist was then paged regarding vitals and potential medication order. Temperature was reassessed at 98.7 at 0100 hours, and patient remains on 4L nasal cannula. Ankit MARTIN.
[2021-03-17] MEDS: penicillin G potassium inj 3,000,000 UNIT in normal saline 100ml IV soln 100 ML IV SCH ×7 (01:21→23:45)
[2021-03-17] MEDS: normal saline 1000ml 1,000 ML IV SCH (05:43)
--- NOTE | 2021-03-17 06:24 | NUR ---
I agree with MARIO Phamemc storage architect, medication pass, and report to Chloe, and Geeta RN
--- NOTE | 2021-03-17 06:24 | NUR ---
Problems reprioritized. Patient report given, questions answered & plan of care reviewed with Trae MARTIN. Ankit MARTIN.
--- NOTE | 2021-03-17 06:30 | NUR ---
Patient in room MOE 353. I have received report from Jaskaran/Shanna MARTIN and had the opportunity to ask questions and assume patient care.
[2021-03-17 06:41] LABS: MAGNESIUM 1.1 MG/DL (1.5-2.4); POTASSIUM 3.2 MMOL/L (3.5-5.1)
--- NOTE | 2021-03-17 06:51 | NUR ---
Patient in room MOE 353. I have received report from MARIO Jessica and had the opportunity to ask questions and assume patient care.
[2021-03-17 06:58] VITALS: BP 129/77
[2021-03-17] MEDS: ARGININE/GLUTAMINE/CALCIUM BMB (JUVEN 19.3GM PKT) 1 EACH POWD.PACK PO SCH ×2 (08:00→19:37)
[2021-03-17] MEDS: linezolid 600mg/300ml PREMIX 300 ML IV SCH (08:47)
[2021-03-17] MEDS: pantoprazole 40 MG vial IV SCH (08:54)
[2021-03-17] MEDS: docusate sod 100mg capsule PO SCH ×2 (08:55→19:37)
[2021-03-17] MEDS: lactobacillus rhamnosus 10,000 MMU CELLS/CAPSULE NG SCH ×2 (08:55→19:36)
[2021-03-17] MEDS: vitamin A & D ointment-NF 1 APPLIC TUBE TP SCH ×2 (08:56→19:38)
--- NOTE | 2021-03-17 10:09 | NUR ---
PAGER ID: [phone] MESSAGE: Britt Becerra #[phone]- Pt needs to have K/Mag protocol, protocol in place is old one from ICU does not apply. Thank you Gold
[2021-03-17] MEDS ORDERED: potassium Cl 20 mEq SR tablet PO PRN (10:10)
[2021-03-17] MEDS ORDERED: magnesium 4gm in 100ml NS 100 ML IV PRN (10:10)
[2021-03-17] MEDS ORDERED: potassium Cl 40MEQ/1/2NS 520ml 520 ML IV PRN (10:10)
[2021-03-17] MEDS: magnesium Cl slow-release 64mg tablet PO PRN ×2 (11:31→19:38)
[2021-03-17] MEDS: potassium Cl 20 mEq SR tablet PO PRN ×3 (11:31→20:52)
[2021-03-17 12:00] VITALS: BP 138/67
[2021-03-17] MEDS ORDERED: normal saline 1000ml 1,000 ML IV SCH (14:25)
--- NOTE | 2021-03-17 15:46 | NUR ---
F/u /: Pt PO 75-100% avg regular diet recent meals though poor PO documentation hx w/ Saurav ONS not documented. Advanced to regular diet 2 hours after STRIPER MACHINE BSS recs pureed/thin 03/15 per EMR. Pt seen by RD for written/verbal low tyramine/high protein diet eds w/ RD contact information provided. Pt appears quite groggy/drowsy during visit but was able to answer questions appropriately; reports no issues chewing/swallowing at this time even though edentulous. RD encouraged pt to contact dietitian's office if further questions/concerns. RN reports MD questioning ONS for protein content; RD explained Saurav ONS specifically made for wound healing not protein content. Rectal tube in place receiving routine colace w/ 50ml output per EMR. Will continue to monitor for additional wound healing needs post-op. Recommendations: 1) Continue regular diet per MD; monitor need for f/u BSS with ST 2) [place] banana Saurav smoothie BIDBD 3) Bowel care per rx 4) Routine scaled weights Addendum: 03/17/21 at [address] Amended: Links added.
--- NOTE | 2021-03-17 15:47 | NUR ---
Attempted to do routine Thursday wound care pictures with patient. After asking patient to roll to the side for gluteal pictures, she became teary and very upset and refused to participate in care. Patient did not want to roll, stated that she was tired of everyone poking at her and tired of being in pain. She said nothing helped the pain and she did not want to have any wound care or pictures done today. Patient is also resistant to other types of care: using the IS and the flutter valve for pulmonary hygiene, bathing and skin care and all wound care in general. notified.
--- NOTE | 2021-03-17 15:57 | NUR ---
PAGER ID: [phone] MESSAGE: Nelli - [phone] - Britt Cler - 353 - FYI Patient refused wound care pictures and has not been compliant with her IS. Pt educated of importance and still refused. Thank you.
--- NOTE | 2021-03-17 18:18 | NUR ---
Problems reprioritized. Patient report given, questions answered & plan of care reviewed with MARIO Rosenbaum.
[2021-03-17 19:00] VITALS: BP 135/67
--- NOTE | 2021-03-17 19:51 | NUR ---
I have received report from Nelli MARTIN and had the opportunity to ask questions and assume patient care.
[2021-03-17] MEDS: insulin glargine (Lantus) pen - multi-dose SQ SCH (20:53)
[2021-03-18] VITALS: BP 154/84
[2021-03-18] MEDS: HYDROmorphone/NS 1 mg/ml CADD 50 ML IV SCH ×9 (01:00→17:00)
[2021-03-18] MEDS: penicillin G potassium inj 3,000,000 UNIT in normal saline 100ml IV soln 100 ML IV SCH ×4 (03:29→16:00)
[2021-03-18] MEDS: CADD PCA waste documentation MC PRN (05:40)
--- NOTE | 2021-03-18 05:41 | NUR ---
cadd cartridge changed. res 2.5 230/403 and 46.3 given. 0 waste could be pulled with syringe. witnessed by 2nd RN
--- NOTE | 2021-03-18 06:36 | NUR ---
Problems reprioritized. Patient report given, questions answered & plan of care reviewed with Nadya MARTIN.
--- NOTE | 2021-03-18 06:37 | NUR ---
Problems reprioritized. Patient report given, questions answered & plan of care reviewed with Nadya MARTIN.
--- NOTE | 2021-03-18 06:38 | NUR ---
Patient in room MOE 353. I have received report from anum MARTIN and had the opportunity to ask questions and assume patient care.
--- NOTE | 2021-03-18 06:40 | NUR ---
Patient in room MOE 340. I have received report from MARIO Rosenbaum and had the opportunity to ask questions and assume patient care.
[2021-03-18 07:00] VITALS: BP 131/92
[2021-03-18] MEDS: ARGININE/GLUTAMINE/CALCIUM BMB (JUVEN 19.3GM PKT) 1 EACH POWD.PACK PO SCH (08:00)
[2021-03-18] MEDS: vitamin A & D ointment-NF 1 APPLIC TUBE TP SCH (08:00)
[2021-03-18] MEDS: docusate sod 100mg capsule PO SCH (08:38)
[2021-03-18] MEDS: lactobacillus rhamnosus 10,000 MMU CELLS/CAPSULE NG SCH (08:38)
[2021-03-18] MEDS: heparin, porcine 5000 units/ml vial SQ SCH ×2 (08:39→16:00)
[2021-03-18] MEDS: pantoprazole 40 MG vial IV SCH (08:56)
[2021-03-18] MEDS ORDERED: LIDOcaine 4% (40 mg/ml) topical solution 50ml TP ONE (09:25)
[2021-03-18 11:00] VITALS: BP 166/90
--- NOTE | 2021-03-18 11:14 | NUR ---
Patient seen by Dr Alcocer is for discharge to [facility]. chest xray cancelled per dr alcocer. blood cultures drawn.Patient also seen by Dr Matthews
--- NOTE | 2021-03-18 14:36 | NUR ---
wound vac changed by wound team, sacral wound and left leg wound changed with optifoam and A&D applied. PICC dressing changed. Worked with Pt, able to dangle on bed, see PT note. rectal tube still in place, will send patient to [facility] with rectal tube. Patient remains on 4 liters of oxygen. will continue on IV abx. awaiting ride to [facility] at this time.
--- NOTE | 2021-03-18 14:42 | NUR ---
Have called maggie twice to give report, nurse is in meeting and will call when she is out.
--- NOTE | 2021-03-18 15:59 | NUR ---
report given to Dariusz Sosa at [facility].
--- NOTE | 2021-03-18 16:15 | NUR ---
Report given to [facility] transport who picked up patient. Patient left with all belongings. Discharge instructions given to patient. Vital signs stable.
[2021-03-18] MEDS ORDERED: CADD PCA waste documentation MC SCH (16:45)
--- NOTE | 2021-03-18 17:18 | NUR ---
Student documentation: I have reviewed and agree with all interventions, assessments performed and documented by Jacob Hua .
== END 2021-03-18 16:28 | DRG 710 ==
LOC: ER 08:46 → ED HOLD 15:35 → UNDOADMIN 15:35 → ED HOLD 18:05 → CICU 2S 18:05 → SUR 3N 03-12 13:25 → UNDODISIN 03-18 16:28
PROVIDERS: ADMIT Surgery Surgical Critical Care; ATTEND Surgery Surgical Critical Care
PROC: 02HV33Z Insertion of Infusion Device into Superior Vena Cava, Percutaneous Approach (ICD-10-PCS; 2021-03-01)
PROC: B548ZZA Ultrasonography of Superior Vena Cava, Guidance (ICD-10-PCS; 2021-03-01)
PROC: 02HV33Z Insertion of Infusion Device into Superior Vena Cava, Percutaneous Approach (ICD-10-PCS; 2021-03-04)
PROC: B548ZZA Ultrasonography of Superior Vena Cava, Guidance (ICD-10-PCS; 2021-03-04)
PROC: 5A1955Z Respiratory Ventilation, Greater than 96 Consecutive Hours (ICD-10-PCS; 2021-03-05)
PROC: 0BH17EZ Insertion of Endotracheal Airway into Trachea, Via Natural or Artificial Opening (ICD-10-PCS; 2021-03-05)
PROC: 30233N1 Transfusion of Nonautologous Red Blood Cells into Peripheral Vein, Percutaneous Approach (ICD-10-PCS; 2021-03-05)
PROC: 0Y6C0Z2 Detachment at Right Upper Leg, Mid, Open Approach (ICD-10-PCS; principal; 2021-03-05 12:45)
DX: A40.9 Streptococcal sepsis, unspecified (principal); R65.21 Severe sepsis with septic shock; J96.01 Acute respiratory failure with hypoxia; M72.6 Necrotizing fasciitis; E43 Unspecified severe protein-calorie malnutrition; E87.2 Acidosis; E66.01 Morbid (severe) obesity due to excess calories; D62 Acute posthemorrhagic anemia; D69.6 Thrombocytopenia, unspecified; J18.9 Pneumonia, unspecified organism; N17.9 Acute kidney failure, unspecified; E87.0 Hyperosmolality and hypernatremia; E87.1 Hypo-osmolality and hyponatremia; E83.42 Hypomagnesemia; Z20.822 Contact with and (suspected) exposure to COVID-19; E87.6 Hypokalemia; F15.10 Other stimulant abuse, uncomplicated; F17.200 Nicotine dependence, unspecified, uncomplicated; F41.9 Anxiety disorder, unspecified; I89.0 Lymphedema, not elsewhere classified; J98.11 Atelectasis; L03.115 Cellulitis of right lower limb; L03.116 Cellulitis of left lower limb; Z68.35 Body mass index [BMI] 35.0-35.9, adult; Z88.5 Allergy status to narcotic agent; Z79.899 Other long term (current) drug therapy
CPT/HCPCS: 36415; 36430; 36556; 36573; 36600; 71045; 73700; 76700; 76775; 76882; 76937; 80047; 80053; 80202; 80305; 81001; 82140; 82550; 82553; 82803; 82948; 83036; 83605; 83615; 83735; 84100; 84132; 84134; 84145; 84155; 84156; 84165; 84166; 84443; 85007; 85018; 85025; 85027; 85379; 85384; 85610; 85651; 85730; 86038; 86060; 86140; 86160; 86256; 86430; 86592; 86703; 86803; 86885; 86900; 86901; 86920; 87040; 87070; 87075; 87077; 87081; 87088; 87186; 87207; 87324; 87340; 87449; 87635; 92508; 92616; 93005; 93306; 93308; 93926; 94002; 94003; 94640; 94667; 94668; 94760; 97110; 97112; 97161; 97164; 97530; 97535; 99291; 99292; A4618; A6222; A6223; A6224; A6253; A6258; A6446; A6449; A7000; C9113; G0378; J0696; J1170; J1644; J1815; J1956; J2020; J2060; J2270; J2370; J2540; J2543; J2765; J3010; J3370; J3475; J3480; J3490; J7030; J7040; J7050; J7060; J7120; J7131; P9016; P9045

== ENCOUNTER 2021-06-29 13:04 | Outpatient (CLI) | payer MEDICAID ==
[~2021-06-29 13:04] MED LIST changes: +TRIA15CR62 TP; -etomidate 2mg/ml inj. ONE; -rocuronium 10mg/ml inj IV ONE; -sod chloride 0.9% 10ml flush syringe IV ONE
[2021-06-29 13:42] LABS: CLARITY,URINE CLOUDY (Clear); COLOR,URINE YELLOW (Yellow); GLUCOSE, URINE NEGATIVE (Neg); KETONES,URINE NEGATIVE (Neg); LEUKOCYTE ESTERASE ,URINE TRACE (Neg); NITRITES, URINE POSITIVE (Neg); OCCULT BLOOD,URINE SMALL (Neg); PH,URINE 5.5 (4.8-8.0); PROTEIN,URINE TRACE mg/dl (Neg); UA COLLECTION TYPE NON-SPECIFIED; UROBILINOGEN,URINE 0.2 E.U/dL (0.2-1.0)
[2021-06-29 13:53] LABS: BACTERIA,URINE 4+ /HPF (Neg); SQUAMOUS EPITHELIAL CELL,UR FEW /LPF (FEW); URINE AMPHETAMINE SCREEN NEGATIVE (Neg); URINE BARBITUATE SCREEN NEGATIVE (Neg); URINE BENZODIAZEPINES SCREEN NEGATIVE (Neg); URINE CANNABINOID SCREEN NEGATIVE (Neg); URINE COCAINE SCREEN NEGATIVE (Neg); URINE METHADONE SCREEN NEGATIVE (Neg); URINE OPIATE SCREEN POSITIVE (Neg); URINE PHENCYCLIDINE SCREEN NEGATIVE (Neg)
[2021-06-29 13:54] LABS: AMORPHOUS URATES 1+; MUCUS STRANDS NONE SEEN /LPF (Neg); WBC CLUMPS,URINE FEW /HPF (NEGATIVE); YEAST MANY /HPF (NEGATIVE)
== END 2021-06-29 23:59 | disposition home or self-care (01) ==
LOC: LAB 13:04
DX: D72.829 Elevated white blood cell count, unspecified (principal)
CPT/HCPCS: 80305; 81001; 87088; 87186

== ENCOUNTER 2021-07-08 11:57 | Inpatient (IN) | payer MEDICAID ==
[~2021-07-08] VITALS: Ht 182.9 cm; Wt 104.0 kg
[2021-07-08] MEDS ORDERED: normal saline 1000ML IV soln IV ONE (12:05)
[2021-07-08 12:22] LABS: BASOPHILS # (AUTO) 0.1 X10'3 (0-0.2); BASOPHILS % (AUTO) 0.9 % (0-1); EOSINOPHILS # (AUTO) 0.3 X10'3 (0-0.9); EOSINOPHILS % (AUTO) 3.4 % (0-6); HEMATOCRIT 42.9 % (35.0-45.0); HEMOGLOBIN 13.8 g/dl (12.0-16.0); LYMPHOCYTES # (AUTO) 1.7 X10'3 (1.1-4.8); LYMPHOCYTES % (AUTO) 20.1 % (21-51); MEAN CORPUSCULAR HEMOGLOBIN 24.1 PG (27.0-31.0); MEAN CORPUSCULAR HGB CONC 32.2 g/dL (33.0-36.5); MEAN CORPUSCULAR VOLUME 74.8 FL (78-98); MEAN PLATELET VOLUME 7.9 FL (7.4-10.4); MONOCYTES # (AUTO) 0.6 X10'3 (0-0.9); MONOCYTES % (AUTO) 6.7 % (2-12); NEUTROPHILS # (AUTO) 5.7 X10'3 (1.8-7.7); NEUTROPHILS % (AUTO) 68.9 % (42-75); PLATELET COUNT 451 X10'3 (140-440); RED BLOOD COUNT 5.73 X10'6 (4.20-5.60); RED CELL DISTRIBUTION WIDTH 17.6 % (11.5-14.5); WHITE BLOOD COUNT 8.3 X10'3 (4.5-11.0)
[2021-07-08 12:38] LABS: ALANINE AMINOTRANSFERASE 17 U/L (12-78); ALBUMIN 3.9 G/DL (3.4-5.0); ALBUMIN/GLOBULIN RATIO 0.9 (1.1-1.5); ALKALINE PHOSPHATASE 138 IU/L (46-116); ANION GAP 6 (8-16); ASPARTATE AMINO TRANSFERASE 15 U/L (10-37); BILIRUBIN,TOTAL 0.2 MG/DL (0.1-1.0); BLOOD UREA NITROGEN 12 MG/DL (7-18); BUN/CREATININE RATIO 19.4 (6.6-38.0); CALCIUM 9.7 MG/DL (8.5-10.1); CHLORIDE 108 MMOL/L (99-107); CREATININE 0.62 MG/DL (0.40-0.90); GLUCOSE 86 MG/DL (70-104); POTASSIUM 3.9 MMOL/L (3.5-5.1); SODIUM 145 MMOL/L (135-145); TOTAL CARBON DIOXIDE 30.8 MMOL/L (24-32); TOTAL PROTEIN 8.4 G/DL (6.4-8.2); eGFR > 90 ML/MIN
[2021-07-08] MEDS ORDERED: levoFLOXACIN-Levaquin 750MG/D5 150 ML IV ONE (12:55)
[2021-07-08] MEDS ORDERED: CefTRIAXone 2gm/D5W 50ml BAG 50 ML IV ONE (12:55)
[2021-07-08] MEDS ORDERED: PREG150C46 PO (13:20)
[2021-07-08] MEDS ORDERED: OXYC1TAB17 PO (13:20)
[2021-07-08] MEDS ORDERED: DULO60CA65 PO (13:20)
[2021-07-08] MEDS ORDERED: LEVO100T9 PO (13:20)
[2021-07-08] MEDS ORDERED: DOCU-345 PO (13:20)
[2021-07-08] MEDS ORDERED: CHOL500050 PO (13:20)
[2021-07-08] MEDS ORDERED: PANT40TA54 PO (13:20)
--- NOTE | 2021-07-08 13:44 | NUR ---
pt is resting quietly on gurney, waiting to be evaluated by hospitalist, watching movie, resp even and unlabored, 1st liter NS infusing w/o
[2021-07-08] MEDS ORDERED: oxyCODONE/APAP 10/325mg tablet PO ONE (13:50)
[2021-07-08] MEDS ORDERED: potassium Cl 40MEQ/1/2NS 520ml 520 ML IV PRN ×2 (14:30)
[2021-07-08] MEDS ORDERED: potassium Cl 20 mEq SR tablet PO PRN ×2 (14:30)
[2021-07-08] MEDS ORDERED: magnesium hydroxide 30ml (MOM) UD suspension PO PRN (14:30)
[2021-07-08] MEDS ORDERED: magnesium Cl slow-release 64mg tablet PO PRN (14:30)
[2021-07-08] MEDS ORDERED: diphenhydrAMINE 25mg capsule PO PRN (14:30)
[2021-07-08] MEDS ORDERED: ondansetron/PF 4mg/2ml inj IV PRN (14:30)
[2021-07-08] MEDS ORDERED: mag hydrox/Alum hydrox/simeth 30ml oral suspension PO PRN (14:30)
[2021-07-08] MEDS ORDERED: acetaminophen 650mg rectal suppository RC PRN (14:30)
[2021-07-08] MEDS ORDERED: bisacodyl 10mg suppository rectal RC PRN (14:30)
[2021-07-08] MEDS ORDERED: magnesium 2GM in 50ml NS 50 ML IV PRN (14:30)
[2021-07-08] MEDS ORDERED: magnesium 4gm in 100ml NS 100 ML IV PRN (14:30)
[2021-07-08] MEDS ORDERED: acetaminophen 325mg tablet PO PRN ×2 (14:30)
--- NOTE | 2021-07-08 16:03 | NUR ---
2nd liter NS infusing w/o
[2021-07-08] MEDS: oxyCODONE/APAP 10/325mg tablet PO PRN ×2 (16:11→20:14)
--- NOTE | 2021-07-08 17:27 | NUR ---
GAVE PT SANDWICH AND YOGURT, HAS WATER TO DRINK
--- NOTE | 2021-07-08 17:28 | NUR ---
3RD LITER NS INFUSING
--- NOTE | 2021-07-08 19:30 | NUR ---
attempted report, nurse will call back, pt is eating dinner
--- NOTE | 2021-07-08 19:46 | NUR ---
Report received from Juana MARTIN. Questions asked and answered. Report given to me and passed on to Sury MARTIN who will be the primary nurse.
--- NOTE | 2021-07-08 19:47 | NUR ---
report called to Neela MARTIN
--- NOTE | 2021-07-08 19:56 | NUR ---
Patient arrived to floor.
[2021-07-08] MEDS: K and/or MAG REPLACEMENT MC SCH (20:00)
[2021-07-08] MEDS: pregabalin 75mg capsule PO SCH (20:07)
[2021-07-08] MEDS: docusate sod 100mg capsule PO SCH (20:07)
[2021-07-08] MEDS: normal saline 1000ml 1,000 ML IV SCH (20:08)
[2021-07-08] MEDS: heparin, porcine 5000 units/ml vial SQ SCH (20:08)
[2021-07-08 20:10] VITALS: BP 135/76
--- NOTE | 2021-07-08 22:12 | NUR ---
352 Britt Cler DX: MDRO UTI and R leg wound. Patient listed as DNR, states she wants to be full code. Sury spray mixer [phone]
--- NOTE | 2021-07-08 23:24 | NUR ---
PAGER ID: [phone] MESSAGE: Britt Becerra 352 DX: MDRO UTI and R leg wound. Patient would like code status changed to FULL CODE. MARIO Gaweave room supervisor [id number]
--- NOTE | 2021-07-08 23:35 | NUR ---
made aware, states will change code status and come see pt.
[2021-07-09] VITALS: BP 138/88
[2021-07-09 01:27] LABS: CLARITY,URINE CLEAR (Clear); COLOR,URINE YELLOW (Yellow); GLUCOSE, URINE NEGATIVE (Neg); KETONES,URINE NEGATIVE (Neg); LEUKOCYTE ESTERASE ,URINE NEGATIVE (Neg); NITRITES, URINE NEGATIVE (Neg); OCCULT BLOOD,URINE NEGATIVE (Neg); PH,URINE 6.5 (4.8-8.0); PROTEIN,URINE NEGATIVE (Neg); UROBILINOGEN,URINE 0.2 E.U/dL (0.2-1.0)
[2021-07-09 01:28] LABS: URINE AMPHETAMINE SCREEN NEGATIVE (Neg); URINE BARBITUATE SCREEN NEGATIVE (Neg); URINE BENZODIAZEPINES SCREEN NEGATIVE (Neg); URINE CANNABINOID SCREEN NEGATIVE (Neg); URINE COCAINE SCREEN NEGATIVE (Neg); URINE METHADONE SCREEN NEGATIVE (Neg); URINE OPIATE SCREEN POSITIVE (Neg); URINE PHENCYCLIDINE SCREEN NEGATIVE (Neg)
[2021-07-09 01:36] LABS: UA COLLECTION TYPE VOIDED
[2021-07-09] MEDS: oxyCODONE/APAP 10/325mg tablet PO PRN ×5 (02:16→21:10)
[2021-07-09] MEDS: normal saline 1000ml 1,000 ML IV SCH ×2 (03:50→16:58)
--- NOTE | 2021-07-09 06:11 | NUR ---
Problems reprioritized. Patient report given, questions answered & plan of care reviewed with MARIO Corona.
[2021-07-09 06:21] LABS: BASOPHILS % (AUTO) 0.8 % (0-1); EOSINOPHILS # (AUTO) 0.3 X10'3 (0-0.9); EOSINOPHILS % (AUTO) 4.9 % (0-6); HEMATOCRIT 39.6 % (35.0-45.0); HEMOGLOBIN 12.6 g/dl (12.0-16.0); LYMPHOCYTES # (AUTO) 1.9 X10'3 (1.1-4.8); LYMPHOCYTES % (AUTO) 30.5 % (21-51); MEAN CORPUSCULAR HEMOGLOBIN 23.6 PG (27.0-31.0); MEAN CORPUSCULAR HGB CONC 31.8 g/dL (33.0-36.5); MEAN CORPUSCULAR VOLUME 74.3 FL (78-98); MEAN PLATELET VOLUME 8.2 FL (7.4-10.4); MONOCYTES # (AUTO) 0.3 X10'3 (0-0.9); MONOCYTES % (AUTO) 5.6 % (2-12); NEUTROPHILS # (AUTO) 3.6 X10'3 (1.8-7.7); NEUTROPHILS % (AUTO) 58.2 % (42-75); PLATELET COUNT 346 X10'3 (140-440); RED BLOOD COUNT 5.33 X10'6 (4.20-5.60); RED CELL DISTRIBUTION WIDTH 18.3 % (11.5-14.5); WHITE BLOOD COUNT 6.2 X10'3 (4.5-11.0)
[2021-07-09 06:37] LABS: ALANINE AMINOTRANSFERASE 11 U/L (12-78); ALBUMIN 3.2 G/DL (3.4-5.0); ALBUMIN/GLOBULIN RATIO 0.8 (1.1-1.5); ALKALINE PHOSPHATASE 113 IU/L (46-116); ANION GAP 9 (8-16); ASPARTATE AMINO TRANSFERASE 16 U/L (10-37); BILIRUBIN,TOTAL 0.2 MG/DL (0.1-1.0); BLOOD UREA NITROGEN 12 MG/DL (7-18); BUN/CREATININE RATIO 16.7 (6.6-38.0); CALCIUM 8.8 MG/DL (8.5-10.1); CHLORIDE 109 MMOL/L (99-107); CHOL/HDL RATIO 3.4 (0.00-4.99); CHOLESTEROL 151 MG/DL (0-200); CREATININE 0.72 MG/DL (0.40-0.90); GLUCOSE 96 MG/DL (70-104); HDL CHOLESTEROL 44 MG/DL (35-60); LDL CHOLESTEROL 90 MG/DL (50-100); MAGNESIUM 1.9 MG/DL (1.5-2.4); POTASSIUM 3.9 MMOL/L (3.5-5.1); SODIUM 145 MMOL/L (135-145); TOTAL CARBON DIOXIDE 27.4 MMOL/L (24-32); TOTAL PROTEIN 7.2 G/DL (6.4-8.2); TRIGLYCERIDES 127 MG/DL (20-135); eGFR 86 ML/MIN
--- NOTE | 2021-07-09 06:38 | NUR ---
Patient in room MOE 352. I have received report from Sury MARTIN and had the opportunity to ask questions and assume patient care.
[2021-07-09 08:00] VITALS: BP 132/76
[2021-07-09] MEDS: K and/or MAG REPLACEMENT MC SCH ×2 (08:00→20:00)
[2021-07-09] MEDS ORDERED: docusate sod 100mg capsule PO SCH (08:00)
[2021-07-09] MEDS ORDERED: duloxetine 30mg CAPSULE.DR PO SCH (08:00)
[2021-07-09] MEDS: pregabalin 75mg capsule PO SCH ×2 (08:00→21:04)
[2021-07-09] MEDS ORDERED: levoTHYROXINE 100mcg tablet PO SCH (08:00)
[2021-07-09] MEDS: pantoprazole 40mg Tablet.DR PO SCH (08:04)
[2021-07-09] MEDS: cholecalciferol (vitamin D3) 1,000 unit (25mcg) tablet PO SCH (08:05)
[2021-07-09] MEDS: docusate sod 100mg capsule PO SCH ×2 (08:06→21:04)
[2021-07-09] MEDS: heparin, porcine 5000 units/ml vial SQ SCH ×2 (08:07→21:06)
[2021-07-09] MEDS: CefTRIAXone/D5W-Rocephin 1gm 50 ML IV SCH (08:09)
[2021-07-09] MEDS: levoFLOXACIN-Levaquin 750MG/D5 150 ML IV SCH (08:12)
[2021-07-09 11:00] VITALS: BP 152/81
--- NOTE | 2021-07-09 12:07 | NUR ---
Noted pt with a low Simeon of 12. Per physical assessment pt with no edema and a right stump surgical wound. Pending H&P at this time. 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 Wound care has been consulted, pending assessment at this time. Pt on a regular diet, pending documentation of PO intake. LBM 07/05, receiving routine bowel care with additional PRN bowel care available. Will continue to follow closely and monitor need for nutrition intervention pending WOC assessment and trends in PO intake. Recommendations: 1) Continue regular diet 2) Monitor need for ONS; consider Saurav BID pending WOC assessment 3) Routine bowel care 4) Scaled weight this admit; weekly scaled weights thereafter Addendum: 07/09/21 at [address] Amended: Links added.
[2021-07-09 18:00] VITALS: BP 132/87
--- NOTE | 2021-07-09 18:18 | NUR ---
Problems reprioritized. Patient report given, questions answered & plan of care reviewed with Sury MARTIN.
[2021-07-09] MEDS: VANCOmycin 1250MG/NS 250ml Bag 250 ML IV SCH (21:03)
[2021-07-09] MEDS: duloxetine 30mg CAPSULE.DR PO SCH (21:03)
[2021-07-09] MEDS: lactobacillus rhamnosus 10,000 MMU CELLS/CAPSULE PO SCH (21:04)
[2021-07-10] VITALS (17 sets, daily range): BP systolic 106–207; BP diastolic 70–145
[2021-07-10] MEDS: oxyCODONE/APAP 10/325mg tablet PO PRN ×2 (04:53→09:29)
--- NOTE | 2021-07-10 06:19 | NUR ---
Problems reprioritized. Patient report given, questions answered & plan of care reviewed with
[2021-07-10 06:29] LABS: BASOPHILS # (AUTO) 0.1 X10'3 (0-0.2); BASOPHILS % (AUTO) 0.7 % (0-1); EOSINOPHILS # (AUTO) 0.4 X10'3 (0-0.9); EOSINOPHILS % (AUTO) 3.8 % (0-6); HEMATOCRIT 39.1 % (35.0-45.0); HEMOGLOBIN 12.6 g/dl (12.0-16.0); LYMPHOCYTES # (AUTO) 1.1 X10'3 (1.1-4.8); LYMPHOCYTES % (AUTO) 11.3 % (21-51); MEAN CORPUSCULAR HEMOGLOBIN 23.7 PG (27.0-31.0); MEAN CORPUSCULAR HGB CONC 32.3 g/dL (33.0-36.5); MEAN CORPUSCULAR VOLUME 73.4 FL (78-98); MEAN PLATELET VOLUME 8.3 FL (7.4-10.4); MONOCYTES # (AUTO) 0.6 X10'3 (0-0.9); MONOCYTES % (AUTO) 6.6 % (2-12); NEUTROPHILS # (AUTO) 7.4 X10'3 (1.8-7.7); NEUTROPHILS % (AUTO) 77.6 % (42-75); PLATELET COUNT 324 X10'3 (140-440); RED BLOOD COUNT 5.33 X10'6 (4.20-5.60); RED CELL DISTRIBUTION WIDTH 17.6 % (11.5-14.5); WHITE BLOOD COUNT 9.6 X10'3 (4.5-11.0)
[2021-07-10] MEDS: normal saline 1000ml 1,000 ML IV SCH ×2 (06:30→19:43)
[2021-07-10 06:41] LABS: PRE OP PARTIAL THROMB. TIME 32 SECONDS (22-32)
[2021-07-10 07:08] LABS: ALANINE AMINOTRANSFERASE 13 U/L (12-78); ALBUMIN 3.2 G/DL (3.4-5.0); ALBUMIN/GLOBULIN RATIO 0.8 (1.1-1.5); ALKALINE PHOSPHATASE 118 IU/L (46-116); ANION GAP 9 (8-16); ASPARTATE AMINO TRANSFERASE 12 U/L (10-37); BILIRUBIN,TOTAL 0.2 MG/DL (0.1-1.0); BLOOD UREA NITROGEN 17 MG/DL (7-18); CALCIUM 9.4 MG/DL (8.5-10.1); CHLORIDE 109 MMOL/L (99-107); CREATININE 0.63 MG/DL (0.40-0.90); GLUCOSE 119 MG/DL (70-104); MAGNESIUM 1.7 MG/DL (1.5-2.4); PHOSPHORUS 4.4 MG/DL (2.3-4.5); SODIUM 144 MMOL/L (135-145); TOTAL CARBON DIOXIDE 25.7 MMOL/L (24-32); eGFR > 90 ML/MIN
[2021-07-10] MEDS: K and/or MAG REPLACEMENT MC SCH ×2 (08:00→20:00)
[2021-07-10] MEDS: cholecalciferol (vitamin D3) 1,000 unit (25mcg) tablet PO SCH (08:00)
[2021-07-10] MEDS: heparin, porcine 5000 units/ml vial SQ SCH ×2 (08:00→20:01)
[2021-07-10] MEDS: lactobacillus rhamnosus 10,000 MMU CELLS/CAPSULE PO SCH ×2 (08:00→20:01)
[2021-07-10] MEDS: docusate sod 100mg capsule PO SCH ×2 (08:00→20:00)
[2021-07-10] MEDS: CefTRIAXone/D5W-Rocephin 1gm 50 ML IV SCH (09:33)
[2021-07-10] MEDS: pantoprazole 40mg Tablet.DR PO SCH (09:43)
[2021-07-10] MEDS: VANCOmycin 1250MG/NS 250ml Bag 250 ML IV SCH ×2 (09:45→19:45)
[2021-07-10] MEDS ORDERED: morphine 4 MG/ML inj SYRINge IV PRN (09:55)
[2021-07-10] MEDS ORDERED: proCHLORperazine 10 MG/2 ml inj IV PRN ×2 (09:55→15:40)
[2021-07-10] MEDS ORDERED: meperidine/PF 25mg/ml syringe IV PRN ×3 (09:55)
[2021-07-10] MEDS ORDERED: ringers solution, lacted 1,000 ML IV SCH (09:55)
[2021-07-10] MEDS ORDERED: morphine 2 MG/ML inj. syringe IV PRN (09:55)
[2021-07-10] MEDS ORDERED: ondansetron/PF 4mg/2ml inj IV PRN (09:55)
[2021-07-10] MEDS: levoFLOXACIN-Levaquin 750MG/D5 150 ML IV SCH (10:23)
--- NOTE | 2021-07-10 11:00 | NUR ---
patient to surgery
--- NOTE | 2021-07-10 11:15 | NUR ---
Patient left for surgery at 1100
[2021-07-10] MEDS ORDERED: sevoflurane 250ml liquid IH ONE (11:22)
[2021-07-10] MEDS ORDERED: fentaNYL/PF 50MCG/1 ML 2ML syringe ONE (11:26)
[2021-07-10] MEDS ORDERED: midazolam 1 mg/ML 2ml injection ONE (11:26)
[2021-07-10] MEDS ORDERED: ondansetron/PF 4mg/2ml inj ONE ×2 (11:44)
[2021-07-10] MEDS ORDERED: LIDOcaine 2% (20mg/ml) 5ml vial ONE (11:44)
[2021-07-10] MEDS ORDERED: propofol inj 20 ML IV ONE (11:44)
[2021-07-10] MEDS ORDERED: meperidine/PF 50mg/ml syringe ONE (12:05)
[2021-07-10] MEDS ORDERED: acetaminophen 1,000mg/100ml IV 100 ML IV ONE (12:48)
[2021-07-10] MEDS ORDERED: morphine 4 MG/ML inj SYRINge ONE (12:55)
--- NOTE | 2021-07-10 13:08 | NUR ---
ASSUME CARE PT AWAKE STATING HAS TO VOID, BEDPAN PROVIDED. C/O RIGHT LEG SURGICAL SITE PAIN. DRESSING TO RIGHT STUMP AREA CDI IV TO RIGHT ARM INTACT IVF INFUSING WITHOUT DIFF. CONT TO MONITOR. Addendum: 07/10/21 at 1340 by Emmy Meier RN Amended: Links added.
--- NOTE | 2021-07-10 13:56 | NUR ---
C/O OF PAIN IN RIGHT LEG SURGICAL SITE, VSS NO DISTRESS DEMEROL 25MG IV GIVEN. REPOSITION PLACED ON BEDPAN VOID WITHOUT DIFF. SKIN TO BUTTOCK RED INFLAMED BARRIER CREAM APPLIED TO AREA. ELEVATED SURGICAL SITE. PT AWAKE MEETS CRITERIA TO DC TO ROOM REPORT CALLED TO RN. Addendum: 07/10/21 at 1358 by Emmy Meier RN Amended: Links added.
--- NOTE | 2021-07-10 14:30 | NUR ---
Patient back from surgery, very painful, high BP. Recovery room was aware. I called Dr Rosales and he ordered a dilauded cadd with standard settings. Asked for bp and compazine to be addressed by hospitalist. will call dr ohara.
[2021-07-10] MEDS ORDERED: naloxone 0.4 mg/ml inj IV PRN (14:35)
[2021-07-10] MEDS: HYDROmorph./NS 0.2 mg/ml CADD 100 ML IV SCH ×6 (15:00→23:00)
[2021-07-10] MEDS ORDERED: hydrALAZINE 20mg/ml inj. IV PRN (15:40)
[2021-07-10] MEDS ORDERED: hydrALAZINE 20mg/ml inj. IV ONE (15:40)
--- NOTE | 2021-07-10 15:40 | NUR ---
New orders for Hydralizine, norvasc and prn compazine for pt. BP still 190's systolic. Will monitor.
[2021-07-10] MEDS: amLODIPine 5mg tablet PO SCH (15:56)
--- NOTE | 2021-07-10 18:30 | NUR ---
Report given to Jaskaran RN, all questions answered. Pt still painful but slightly better, BP 179 systolic. Jaskaran will continue monitoring and is aware of potential need for more bp meds and possible need for increase of pain med. Wound dressing cdi.
--- NOTE | 2021-07-10 19:05 | NUR ---
I have received report from MARIO Brandon and had the opportunity to ask questions and assume patient care.
[2021-07-10] MEDS: duloxetine 30mg CAPSULE.DR PO SCH (20:04)
[2021-07-10] MEDS: pregabalin 75mg capsule PO SCH (20:05)
[2021-07-11] VITALS: BP 150/90
[2021-07-11] MEDS: HYDROmorph./NS 0.2 mg/ml CADD 100 ML IV SCH ×12 (01:00→23:00)
[2021-07-11 04:54] VITALS: BP 119/62
--- NOTE | 2021-07-11 06:18 | NUR ---
Problems reprioritized. Patient report given, questions answered & plan of care reviewed with MARIO Caraballo.
[2021-07-11] MEDS ORDERED: VANCOMYCIN LEVEL IV ONE (06:30)
[2021-07-11 07:00] VITALS: BP 132/88
[2021-07-11 07:05] LABS: BASOPHILS % (AUTO) 0.2 % (0-1); EOSINOPHILS % (AUTO) 0.1 % (0-6); HEMATOCRIT 39.4 % (35.0-45.0); HEMOGLOBIN 12.3 g/dl (12.0-16.0); LYMPHOCYTES % (AUTO) 7.3 % (21-51); MEAN CORPUSCULAR HEMOGLOBIN 23.6 PG (27.0-31.0); MEAN CORPUSCULAR HGB CONC 31.3 g/dL (33.0-36.5); MEAN CORPUSCULAR VOLUME 75.4 FL (78-98); MEAN PLATELET VOLUME 8.4 FL (7.4-10.4); MONOCYTES # (AUTO) 0.7 X10'3 (0-0.9); MONOCYTES % (AUTO) 5.1 % (2-12); NEUTROPHILS # (AUTO) 12.4 X10'3 (1.8-7.7); NEUTROPHILS % (AUTO) 87.3 % (42-75); PLATELET COUNT 340 X10'3 (140-440); RED BLOOD COUNT 5.23 X10'6 (4.20-5.60); RED CELL DISTRIBUTION WIDTH 17.5 % (11.5-14.5); WHITE BLOOD COUNT 14.2 X10'3 (4.5-11.0)
[2021-07-11] MEDS: VANCOmycin 1250MG/NS 250ml Bag 250 ML IV SCH (07:08)
[2021-07-11] MEDS: CefTRIAXone/D5W-Rocephin 1gm 50 ML IV SCH (07:09)
[2021-07-11] MEDS: levoFLOXACIN-Levaquin 750MG/D5 150 ML IV SCH (07:09)
[2021-07-11] MEDS: cholecalciferol (vitamin D3) 1,000 unit (25mcg) tablet PO SCH (07:10)
[2021-07-11] MEDS: levoTHYROXINE 75mcg tablet PO SCH (07:10)
[2021-07-11] MEDS: normal saline 1000ml 1,000 ML IV SCH ×2 (07:10→22:30)
[2021-07-11] MEDS: pantoprazole 40mg Tablet.DR PO SCH (07:11)
[2021-07-11] MEDS: docusate sod 100mg capsule PO SCH ×2 (07:11→19:54)
[2021-07-11] MEDS: lactobacillus rhamnosus 10,000 MMU CELLS/CAPSULE PO SCH ×2 (07:11→19:54)
[2021-07-11] MEDS: heparin, porcine 5000 units/ml vial SQ SCH ×2 (07:12→19:55)
[2021-07-11] MEDS: amLODIPine 5mg tablet PO SCH (07:35)
[2021-07-11] MEDS: K and/or MAG REPLACEMENT MC SCH ×2 (08:00→20:00)
[2021-07-11 10:13] LABS: ALANINE AMINOTRANSFERASE 26 U/L (12-78); ALBUMIN 3.2 G/DL (3.4-5.0); ALBUMIN/GLOBULIN RATIO 0.8 (1.1-1.5); ALKALINE PHOSPHATASE 122 IU/L (46-116); ANION GAP 6 (8-16); ASPARTATE AMINO TRANSFERASE 21 U/L (10-37); BILIRUBIN,TOTAL 0.3 MG/DL (0.1-1.0); BLOOD UREA NITROGEN 7 MG/DL (7-18); BUN/CREATININE RATIO 15.6 (6.6-38.0); CALCIUM 8.6 MG/DL (8.5-10.1); CHLORIDE 103 MMOL/L (99-107); CREATININE 0.45 MG/DL (0.40-0.90); GLUCOSE 130 MG/DL (70-104); MAGNESIUM 1.6 MG/DL (1.5-2.4); PHOSPHORUS 2.7 MG/DL (2.3-4.5); POTASSIUM 3.4 MMOL/L (3.5-5.1); SODIUM 139 MMOL/L (135-145); TOTAL CARBON DIOXIDE 30.1 MMOL/L (24-32); TOTAL PROTEIN 7.3 G/DL (6.4-8.2); eGFR > 90 ML/MIN
[2021-07-11 11:00] VITALS: BP 145/82
--- NOTE | 2021-07-11 13:01 | NUR ---
Dr. Rosales rounded. Pt sleeping. states pt's wound is closed and needs no specific wd care. Ok w/ surgeon for pt to be discharged to proper placement.
[2021-07-11] MEDS ORDERED: vancomycin/NS 1 GM ADD-VANTAGE 250 ML IV SCH (15:00)
[2021-07-11] MEDS ORDERED: potassium Cl 40MEQ/1/2NS 520ml 520 ML IV PRN (17:05)
[2021-07-11] MEDS ORDERED: potassium Cl 20 mEq SR tablet PO PRN (17:05)
[2021-07-11] MEDS ORDERED: magnesium 4gm in 100ml NS 100 ML IV PRN (17:05)
[2021-07-11] MEDS: potassium Cl 20 mEq SR tablet PO PRN (17:12)
[2021-07-11 18:00] VITALS: BP 114/71
--- NOTE | 2021-07-11 18:36 | NUR ---
Patient in room MOE 352. I have received report from MARIO Caraballo and had the opportunity to ask questions and assume patient care.
[2021-07-11] MEDS: CefTRIAXone 2gm/D5W 50ml BAG 50 ML IV SCH (19:56)
[2021-07-11] MEDS: pregabalin 75mg capsule PO SCH (21:22)
[2021-07-11] MEDS: duloxetine 30mg CAPSULE.DR PO SCH (21:22)
[2021-07-12] VITALS: BP 128/71
[2021-07-12] MEDS: potassium Cl 20 mEq SR tablet PO PRN (00:25)
[2021-07-12] MEDS: HYDROmorph./NS 0.2 mg/ml CADD 100 ML IV SCH ×12 (01:00→23:00)
[2021-07-12] MEDS: normal saline 1000ml 1,000 ML IV SCH ×2 (02:33→15:21)
--- NOTE | 2021-07-12 06:44 | NUR ---
Patient in room MOE 352. I have received report from Jaskaran MARTIN and had the opportunity to ask questions and assume patient care.
[2021-07-12 07:17] LABS: BASOPHILS # (AUTO) 0.1 X10'3 (0-0.2); BASOPHILS % (AUTO) 0.8 % (0-1); EOSINOPHILS # (AUTO) 0.1 X10'3 (0-0.9); EOSINOPHILS % (AUTO) 0.6 % (0-6); HEMATOCRIT 35.3 % (35.0-45.0); HEMOGLOBIN 11.2 g/dl (12.0-16.0); LYMPHOCYTES # (AUTO) 1.8 X10'3 (1.1-4.8); LYMPHOCYTES % (AUTO) 15.5 % (21-51); MEAN CORPUSCULAR HEMOGLOBIN 23.4 PG (27.0-31.0); MEAN CORPUSCULAR HGB CONC 31.7 g/dL (33.0-36.5); MEAN CORPUSCULAR VOLUME 73.8 FL (78-98); MEAN PLATELET VOLUME 8.6 FL (7.4-10.4); MONOCYTES # (AUTO) 1.1 X10'3 (0-0.9); MONOCYTES % (AUTO) 9.7 % (2-12); NEUTROPHILS # (AUTO) 8.7 X10'3 (1.8-7.7); NEUTROPHILS % (AUTO) 73.4 % (42-75); PLATELET COUNT 350 X10'3 (140-440); RED BLOOD COUNT 4.79 X10'6 (4.20-5.60); RED CELL DISTRIBUTION WIDTH 17.8 % (11.5-14.5); WHITE BLOOD COUNT 11.8 X10'3 (4.5-11.0)
[2021-07-12 07:40] VITALS: BP 109/64
[2021-07-12 07:43] LABS: ALANINE AMINOTRANSFERASE 18 U/L (12-78); ALBUMIN/GLOBULIN RATIO 0.9 (1.1-1.5); ALKALINE PHOSPHATASE 113 IU/L (46-116); ANION GAP 8 (8-16); ASPARTATE AMINO TRANSFERASE 14 U/L (10-37); BILIRUBIN,TOTAL 0.3 MG/DL (0.1-1.0); BLOOD UREA NITROGEN 5 MG/DL (7-18); BUN/CREATININE RATIO 12.2 (6.6-38.0); CALCIUM 8.8 MG/DL (8.5-10.1); CHLORIDE 105 MMOL/L (99-107); CREATININE 0.41 MG/DL (0.40-0.90); GLUCOSE 105 MG/DL (70-104); MAGNESIUM 1.6 MG/DL (1.5-2.4); PHOSPHORUS 2.2 MG/DL (2.3-4.5); POTASSIUM 3.5 MMOL/L (3.5-5.1); SODIUM 141 MMOL/L (135-145); TOTAL CARBON DIOXIDE 28.2 MMOL/L (24-32); TOTAL PROTEIN 6.5 G/DL (6.4-8.2); eGFR > 90 ML/MIN
[2021-07-12] MEDS: cholecalciferol (vitamin D3) 1,000 unit (25mcg) tablet PO SCH (07:44)
[2021-07-12] MEDS: docusate sod 100mg capsule PO SCH ×2 (07:45→19:33)
[2021-07-12] MEDS: levoTHYROXINE 75mcg tablet PO SCH (07:45)
[2021-07-12] MEDS: amLODIPine 5mg tablet PO SCH (07:45)
[2021-07-12] MEDS: pantoprazole 40mg Tablet.DR PO SCH (07:46)
[2021-07-12] MEDS: lactobacillus rhamnosus 10,000 MMU CELLS/CAPSULE PO SCH ×2 (07:46→19:35)
[2021-07-12] MEDS: heparin, porcine 5000 units/ml vial SQ SCH ×2 (07:47→19:34)
[2021-07-12] MEDS: K and/or MAG REPLACEMENT MC SCH ×2 (08:00→20:00)
[2021-07-12] MEDS: CefTRIAXone 2gm/D5W 50ml BAG 50 ML IV SCH ×2 (09:56→19:34)
[2021-07-12 11:00] VITALS: BP 110/67
--- NOTE | 2021-07-12 12:16 | NUR ---
Reassessment: Pt s/p AKA redo 07/10. Per weight guesser 07/11 MD states wound is closed. Noted pt with mostly 100% PO intake though was with 0% PO intake while on a CHO controlled diet though did request a milkshake per weight guesser. Of note pt received PRN anti-emetic on 07/11, decreased PO intake that day possibly r/t nausea. Order was appropriately changed back to regular as pt with no PMH DM. Pending documentation of PO intake since diet order correction. Pt would benefit from Saurav shake BID to assist with wound healing. ONS to be sent pending MD approval in EMR. LBM 07/09, receiving routine bowel care. Will continue to follow closely and monitor need for further nutrition intervention. Recommendations: 1) Continue regular diet 2) Saurav shake BIDLD, pending MD approval in EMR; monitor need for additional protein for satiety 3) Routine bowel care 4) Scaled weight this admit; weekly scaled weights thereafter Addendum: 07/12/21 at [address] Amended: Links added.
[2021-07-12] MEDS ORDERED: JUVEN Shake w/Arg/Glut/Ca2+Bmb (Juven 19.3gm) pkt 240ml PO SCH (12:30)
[2021-07-12] MEDS ORDERED: VANCOMYCIN LEVEL IV ONE (14:30)
[2021-07-12 18:00] VITALS: BP 108/73
--- NOTE | 2021-07-12 19:03 | NUR ---
Patient in room MOE 352. I have received report from JANAE MARTIN and had the opportunity to ask questions and assume patient care.
--- NOTE | 2021-07-12 19:15 | NUR ---
patient very pleasant worked with PT se note able to dangle on side of bed. wound care done incision minimal drainage clean and dry. Using dilaudid cadd effectively. Report given to prudence RN
[2021-07-12] MEDS: duloxetine 30mg CAPSULE.DR PO SCH (21:36)
[2021-07-12] MEDS: pregabalin 75mg capsule PO SCH (21:36)
[2021-07-13] VITALS: BP 113/63
[2021-07-13] MEDS: HYDROmorph./NS 0.2 mg/ml CADD 100 ML IV SCH ×12 (01:00→23:00)
[2021-07-13] MEDS: normal saline 1000ml 1,000 ML IV SCH ×2 (03:12→17:08)
[2021-07-13 06:04] LABS: BASOPHILS # (AUTO) 0.1 X10'3 (0-0.2); BASOPHILS % (AUTO) 0.8 % (0-1); EOSINOPHILS # (AUTO) 0.3 X10'3 (0-0.9); EOSINOPHILS % (AUTO) 2.7 % (0-6); HEMATOCRIT 32.7 % (35.0-45.0); HEMOGLOBIN 10.6 g/dl (12.0-16.0); LYMPHOCYTES % (AUTO) 19.5 % (21-51); MEAN CORPUSCULAR HEMOGLOBIN 23.9 PG (27.0-31.0); MEAN CORPUSCULAR HGB CONC 32.3 g/dL (33.0-36.5); MEAN PLATELET VOLUME 8.5 FL (7.4-10.4); MONOCYTES # (AUTO) 0.8 X10'3 (0-0.9); MONOCYTES % (AUTO) 8.3 % (2-12); NEUTROPHILS % (AUTO) 68.7 % (42-75); PLATELET COUNT 328 X10'3 (140-440); RED BLOOD COUNT 4.41 X10'6 (4.20-5.60); RED CELL DISTRIBUTION WIDTH 17.4 % (11.5-14.5); WHITE BLOOD COUNT 10.2 X10'3 (4.5-11.0)
[2021-07-13 06:28] LABS: ALANINE AMINOTRANSFERASE 17 U/L (12-78); ALBUMIN 2.7 G/DL (3.4-5.0); ALBUMIN/GLOBULIN RATIO 0.7 (1.1-1.5); ALKALINE PHOSPHATASE 117 IU/L (46-116); ANION GAP 8 (8-16); ASPARTATE AMINO TRANSFERASE 21 U/L (10-37); BILIRUBIN,TOTAL 0.3 MG/DL (0.1-1.0); BLOOD UREA NITROGEN 7 MG/DL (7-18); BUN/CREATININE RATIO 14.6 (6.6-38.0); CALCIUM 8.6 MG/DL (8.5-10.1); CHLORIDE 106 MMOL/L (99-107); CREATININE 0.48 MG/DL (0.40-0.90); GLUCOSE 161 MG/DL (70-104); MAGNESIUM 1.4 MG/DL (1.5-2.4); PHOSPHORUS 2.6 MG/DL (2.3-4.5); POTASSIUM 3.5 MMOL/L (3.5-5.1); SODIUM 141 MMOL/L (135-145); TOTAL CARBON DIOXIDE 27.1 MMOL/L (24-32); TOTAL PROTEIN 6.4 G/DL (6.4-8.2); eGFR > 90 ML/MIN
[2021-07-13 06:30] VITALS: BP 109/71
--- NOTE | 2021-07-13 06:50 | NUR ---
Patient in room MOE 352. I have received report from MARIO Mcbride and had the opportunity to ask questions and assume patient care.
--- NOTE | 2021-07-13 06:52 | NUR ---
Problems reprioritized. Patient report given, questions answered & plan of care reviewed with JILLIAN RN.
[2021-07-13] MEDS: K and/or MAG REPLACEMENT MC SCH ×2 (08:00→17:38)
[2021-07-13] MEDS: polyethylene glycol 3350 17gm powd pack PO SCH (09:22)
[2021-07-13] MEDS: CefTRIAXone 2gm/D5W 50ml BAG 50 ML IV SCH ×2 (09:23→20:14)
[2021-07-13] MEDS: docusate sod 100mg capsule PO SCH ×2 (09:23→20:14)
[2021-07-13] MEDS: magnesium Cl slow-release 64mg tablet PO PRN ×2 (09:24→16:44)
[2021-07-13] MEDS: levoTHYROXINE 75mcg tablet PO SCH (09:24)
[2021-07-13] MEDS: cholecalciferol (vitamin D3) 1,000 unit (25mcg) tablet PO SCH (09:24)
[2021-07-13] MEDS: lactobacillus rhamnosus 10,000 MMU CELLS/CAPSULE PO SCH ×2 (09:24→20:14)
[2021-07-13] MEDS: pantoprazole 40mg Tablet.DR PO SCH (09:24)
[2021-07-13] MEDS: amLODIPine 5mg tablet PO SCH (09:25)
[2021-07-13] MEDS: heparin, porcine 5000 units/ml vial SQ SCH ×2 (09:27→20:15)
[2021-07-13 11:00] VITALS: BP 122/73
[2021-07-13 18:30] VITALS: BP 114/77
[2021-07-13] MEDS: CADD PCA waste documentation MC PRN (19:34)
[2021-07-13] MEDS: duloxetine 30mg CAPSULE.DR PO SCH (20:14)
[2021-07-13] MEDS: pregabalin 75mg capsule PO SCH (20:14)
[2021-07-13 23:30] VITALS: BP 117/69
--- NOTE | 2021-07-14 00:20 | NUR ---
Problems reprioritized. Patient report given, questions answered & plan of care reviewed with MARIO Callejas.
[2021-07-14] MEDS: HYDROmorph./NS 0.2 mg/ml CADD 100 ML IV SCH ×12 (01:00→23:00)
--- NOTE | 2021-07-14 06:20 | NUR ---
received report from madhu barrientos
--- NOTE | 2021-07-14 06:27 | NUR ---
Problems reprioritized. Patient report given, questions answered & plan of care reviewed with Joseline MARTIN. Addendum: 07/14/21 at 0627 by Britta Cordova RN Amended: Links added.
[2021-07-14 07:00] VITALS: BP 154/75
[2021-07-14] MEDS: K and/or MAG REPLACEMENT MC SCH ×2 (08:00→20:04)
[2021-07-14] MEDS: polyethylene glycol 3350 17gm powd pack PO SCH (08:11)
[2021-07-14] MEDS: pantoprazole 40mg Tablet.DR PO SCH (08:12)
[2021-07-14] MEDS: levoTHYROXINE 75mcg tablet PO SCH (08:12)
[2021-07-14] MEDS: lactobacillus rhamnosus 10,000 MMU CELLS/CAPSULE PO SCH ×2 (08:12→19:51)
[2021-07-14] MEDS: amLODIPine 5mg tablet PO SCH (08:13)
[2021-07-14] MEDS: cholecalciferol (vitamin D3) 1,000 unit (25mcg) tablet PO SCH (08:14)
[2021-07-14] MEDS: potassium Cl 20 mEq SR tablet PO PRN ×2 (08:14→12:54)
[2021-07-14] MEDS: docusate sod 100mg capsule PO SCH ×2 (08:15→19:51)
[2021-07-14] MEDS: CefTRIAXone 2gm/D5W 50ml BAG 50 ML IV SCH ×2 (08:19→20:11)
[2021-07-14] MEDS: heparin, porcine 5000 units/ml vial SQ SCH ×2 (08:22→19:52)
[2021-07-14 11:00] VITALS: BP 119/71
--- NOTE | 2021-07-14 11:00 | NUR ---
with the cadd setting checks the residual volume does not always show up, continue to monitor
[2021-07-14] MEDS: normal saline 1000ml 1,000 ML IV SCH (17:10)
--- NOTE | 2021-07-14 18:17 | NUR ---
GAVE REPORT TO MARIO BERTRAND
--- NOTE | 2021-07-14 18:36 | NUR ---
Patient in room MOE 352. I have received report from MOI MARTIN and had the opportunity to ask questions and assume patient care. Addendum: 07/14/21 at 1836 by Graciela Mazariegos RN Amended: Links added.
[2021-07-14] MEDS: CADD PCA waste documentation MC PRN (19:41)
[2021-07-14] MEDS: pregabalin 75mg capsule PO SCH (19:51)
[2021-07-14] MEDS: duloxetine 30mg CAPSULE.DR PO SCH (19:52)
[2021-07-14 20:00] VITALS: BP 112/61
--- NOTE | 2021-07-14 20:00 | NUR ---
IV LEAKING ATTEMPT X2 GOT SECOND ONE AND BLEW ASKED GEOMORPHOLOGY TEACHER JUSTYN TO TRY. ON 3RD STICK GOT IT IN LEFT WRIST AREA WITH 22.
--- NOTE | 2021-07-14 21:25 | NUR ---
WICC STOPPED WORKING INC OF URINE SKIN CARE DONE AFTER ISLAND DRESSING TO LEFT STUMP CHANGED NOTED LEFT OUTER STITCHES OF STUMP LEAKING SANGUINOUS FLD ON THE SHANNAN 4X4 NON ADHERING DRESSING TO THE AREA AND NEW LARGE ISLAND DRESSING APPLIED OVER THE STITCHES. THEN SKIN CARE DONE CALAZIME CREAM TO BOTTOM AND NEW WICC APPLIED. PT ASSISTED IN TURNING AND TOLERATED WELL.
--- NOTE | 2021-07-14 23:37 | NUR ---
WENT TO REPLACE LOW POTASSIUM FOR PT NOTED FELL OFF THE JAN PAGE TO TO RENEW IT.
[2021-07-15] VITALS: BP 105/63
[2021-07-15] MEDS: HYDROmorph./NS 0.2 mg/ml CADD 100 ML IV SCH ×12 (01:00→23:00)
[2021-07-15] MEDS ORDERED: potassium Cl 40MEQ/1/2NS 520ml 520 ML IV PRN ×2 (03:25)
--- NOTE | 2021-07-15 03:30 | NUR ---
RECEIVED REPLACEMENT ORDERS FOR POTASSIUM FROM DR ROSEN.
--- NOTE | 2021-07-15 05:00 | NUR ---
PT INC OF URINE BESIDE WHAT WAS COLLECTED IN THE CANISTER. SKIN CARE DONE CALAZIME CREAM APPLIED AND NEW WICC INSERTED. PT TOLERATED WELL.
--- NOTE | 2021-07-15 06:11 | NUR ---
Problems reprioritized. Patient report given, questions answered & plan of care reviewed with RADHA MARTIN. Addendum: 07/15/21 at 0613 by Graciela Mazariegos RN Amended: Links added.
[2021-07-15] MEDS: normal saline 1000ml 1,000 ML IV SCH ×3 (06:30→22:37)
[2021-07-15 06:54] LABS: POTASSIUM 3.8 MMOL/L (3.5-5.1)
[2021-07-15 07:00] VITALS: BP 128/74
--- NOTE | 2021-07-15 07:00 | NUR ---
Patient in room MOE 352. I have received report from Graciela MARTIN and had the opportunity to ask questions and assume patient care.
[2021-07-15] MEDS: K and/or MAG REPLACEMENT MC SCH ×2 (08:00→20:00)
[2021-07-15 08:11] LABS: MAGNESIUM 1.7 MG/DL (1.5-2.4)
[2021-07-15] MEDS: lactobacillus rhamnosus 10,000 MMU CELLS/CAPSULE PO SCH ×2 (09:24→20:43)
[2021-07-15] MEDS: polyethylene glycol 3350 17gm powd pack PO SCH (09:24)
[2021-07-15] MEDS: CefTRIAXone 2gm/D5W 50ml BAG 50 ML IV SCH (09:24)
[2021-07-15] MEDS: cholecalciferol (vitamin D3) 1,000 unit (25mcg) tablet PO SCH (09:25)
[2021-07-15] MEDS: pantoprazole 40mg Tablet.DR PO SCH (09:26)
[2021-07-15] MEDS: amLODIPine 5mg tablet PO SCH (09:26)
[2021-07-15] MEDS: levoTHYROXINE 75mcg tablet PO SCH (09:26)
[2021-07-15] MEDS: docusate sod 100mg capsule PO SCH ×2 (09:26→20:00)
[2021-07-15] MEDS: heparin, porcine 5000 units/ml vial SQ SCH ×2 (09:27→20:44)
[2021-07-15 11:00] VITALS: BP 116/71
--- NOTE | 2021-07-15 11:51 | NUR ---
re: 352 FYI Pt lives with her son and states he is has COVID. Thank you, Criss [phone] Will continue to monitor
--- NOTE | 2021-07-15 11:52 | NUR ---
PAGER ID: [phone] MESSAGE: re: 352, Cler, Britt MORIN, patient lives with her son and states he now has COVID. Criss [phone] Will continue to monitor.
--- NOTE | 2021-07-15 15:25 | NUR ---
message to Pharmacy: Patient has 13.1 ml residual volume left in her Dilaudid Cadd. Will need a new cassette soon. thank you, Criss [phone] Will continue to monitor
--- NOTE | 2021-07-15 16:53 | NUR ---
PHONED PHARMACY, STILL WAITING FOR CEFAZOLIN 2GM IN 100ML- THEY WILL SEND UP. WILL CONTINUE TO MONITOR.
[2021-07-15] MEDS: cefazolin/dext.iso 2gm/100ml 100 ML IV SCH (17:06)
[2021-07-15] MEDS: mineral oil/petrolatum, white cream 113gm jar TP SCH (17:06)
[2021-07-15] MEDS: CADD PCA waste documentation MC PRN (17:10)
--- NOTE | 2021-07-15 18:46 | NUR ---
Patient in room MOE 352. I have received report from RADHA MARTIN and had the opportunity to ask questions and assume patient care. Addendum: 07/15/21 at 1846 by Graciela Mazariegos RN Amended: Links added.
[2021-07-15 19:00] VITALS: BP 128/50
--- NOTE | 2021-07-15 19:15 | NUR ---
Problems reprioritized. Patient report given, questions answered & plan of care reviewed with Graciela MARTIN.
[2021-07-15] MEDS: pregabalin 75mg capsule PO SCH (20:43)
[2021-07-15] MEDS: duloxetine 30mg CAPSULE.DR PO SCH (20:43)
--- NOTE | 2021-07-15 22:30 | NUR ---
IV TUBING CHANGED WITH NEW BAG OF IV FLUIDS INFUSING. NOTED ISLAND DRESSING INTACT WITH NON ADHERENT DRESSING TO RIGHT OUTER EDGE OF THE AMPUTATION INCISION
[2021-07-16] VITALS: BP 121/71
--- NOTE | 2021-07-16 | NUR ---
pt resting no s&s of distress at this time.
[2021-07-16] MEDS: cefazolin/dext.iso 2gm/100ml 100 ML IV SCH ×3 (00:07→16:35)
[2021-07-16] MEDS: HYDROmorph./NS 0.2 mg/ml CADD 100 ML IV SCH ×12 (01:00→23:00)
--- NOTE | 2021-07-16 04:00 | NUR ---
resting without changes.
--- NOTE | 2021-07-16 04:43 | NUR ---
resting eyes closed without changes.
--- NOTE | 2021-07-16 06:22 | NUR ---
Problems reprioritized. Patient report given, questions answered & plan of care reviewed with KELLY MARTIN. Addendum: 07/16/21 at 0622 by Graciela Mazariegos RN Amended: Links added.
[2021-07-16 07:06] VITALS: BP 121/92
[2021-07-16] MEDS: docusate sod 100mg capsule PO SCH ×3 (08:00→19:27)
[2021-07-16] MEDS: K and/or MAG REPLACEMENT MC SCH ×2 (08:00→20:00)
[2021-07-16] MEDS: polyethylene glycol 3350 17gm powd pack PO SCH (08:00)
[2021-07-16] MEDS: cholecalciferol (vitamin D3) 1,000 unit (25mcg) tablet PO SCH (08:40)
[2021-07-16] MEDS: lactobacillus rhamnosus 10,000 MMU CELLS/CAPSULE PO SCH ×2 (08:41→19:25)
[2021-07-16] MEDS: pantoprazole 40mg Tablet.DR PO SCH (08:42)
[2021-07-16] MEDS: levoTHYROXINE 75mcg tablet PO SCH (08:42)
[2021-07-16] MEDS: amLODIPine 5mg tablet PO SCH (08:43)
[2021-07-16] MEDS: mineral oil/petrolatum, white cream 113gm jar TP SCH (08:45)
[2021-07-16] MEDS: heparin, porcine 5000 units/ml vial SQ SCH ×2 (08:45→19:25)
[2021-07-16 11:00] VITALS: BP 112/72
[2021-07-16] MEDS: normal saline 1000ml 1,000 ML IV SCH (12:29)
--- NOTE | 2021-07-16 14:21 | NUR ---
Reassessment: PO intake has improved since last RD assessment 07/12 as pt documented with 75-100% PO intake on regular diet. ONS not verified in EMR, TC to RN with recommendation for Saurav nuriaenma GEE to assist with wound healing. Per RN may have better luck placing recommendation under hospitalist. LBM 07/15, receiving routine bowel care though noted that pt refuses at times. Will continue to follow. Recommendations: 1) Continue regular diet 2) Saurav zuleyka GEELD, pending MD approval in EMR 3) Monitor need for additional protein for satiety 4) Routine bowel care 5) Scaled weight this admit; weekly scaled weights thereafter Addendum: 07/16/21 at [address] Amended: Links added.
[2021-07-16 18:00] VITALS: BP 107/49
--- NOTE | 2021-07-16 18:20 | NUR ---
Report given to Ofelia RN, pt doing well. No current concerns. Ofelia will monitor CADD, and possibly replace with new unit. CADD shows it is dosing appropriately and patient is appropriate but unit is making loud, longer dose sounds. Medication changed recently in CADD before shift change
--- NOTE | 2021-07-16 18:38 | NUR ---
CADD was changed out due to the CADD making a funny noise. The old reservoir was at 92.2 The number of attempts was 4/4 and 1.2 was given. The numbers will be off due to the change.
--- NOTE | 2021-07-16 19:06 | NUR ---
Patient in room MOE 352. I have received report from MARIO Brandon and had the opportunity to ask questions and assume patient care.
[2021-07-16] MEDS: pregabalin 75mg capsule PO SCH (21:54)
[2021-07-16] MEDS: duloxetine 30mg CAPSULE.DR PO SCH (21:54)
[2021-07-16] MEDS: nystatin 15 GM powder TP SCH (21:57)
[2021-07-16] MEDS: loperamide 2mg capsule PO PRN (21:57)
[2021-07-17] VITALS: BP 113/67
[2021-07-17] MEDS: normal saline 1000ml 1,000 ML IV SCH (00:20)
[2021-07-17] MEDS: cefazolin/dext.iso 2gm/100ml 100 ML IV SCH ×4 (00:20→23:20)
[2021-07-17] MEDS: HYDROmorph./NS 0.2 mg/ml CADD 100 ML IV SCH ×5 (01:00→09:00)
--- NOTE | 2021-07-17 06:30 | NUR ---
Problems reprioritized. Patient report given, questions answered & plan of care reviewed with MARIO Gracia.
[2021-07-17 07:00] VITALS: BP 102/64
[2021-07-17] MEDS: heparin, porcine 5000 units/ml vial SQ SCH ×2 (08:00→21:14)
[2021-07-17] MEDS: polyethylene glycol 3350 17gm powd pack PO SCH (08:00)
[2021-07-17] MEDS: K and/or MAG REPLACEMENT MC SCH ×2 (08:00→20:00)
[2021-07-17] MEDS: docusate sod 100mg capsule PO SCH ×2 (08:00→20:00)
[2021-07-17] MEDS: amLODIPine 5mg tablet PO SCH (10:06)
[2021-07-17] MEDS: levoTHYROXINE 75mcg tablet PO SCH (10:08)
[2021-07-17] MEDS: pantoprazole 40mg Tablet.DR PO SCH (10:08)
[2021-07-17] MEDS: lactobacillus rhamnosus 10,000 MMU CELLS/CAPSULE PO SCH ×2 (10:08→21:14)
[2021-07-17] MEDS: cholecalciferol (vitamin D3) 1,000 unit (25mcg) tablet PO SCH (10:08)
[2021-07-17] MEDS: nystatin 15 GM powder TP SCH ×3 (10:49→21:15)
[2021-07-17] MEDS: mineral oil/petrolatum, white cream 113gm jar TP SCH (10:49)
[2021-07-17 11:00] VITALS: BP 114/72
[2021-07-17] MEDS: CADD PCA waste documentation MC PRN (11:05)
[2021-07-17] MEDS: oxyCODONE/APAP 10/325mg tablet PO PRN ×4 (11:19→23:22)
[2021-07-17] MEDS: JUVEN Shake w/Arg/Glut/Ca2+Bmb (Juven 19.3gm) pkt 240ml PO SCH ×2 (12:30→17:30)
[2021-07-17] MEDS: loperamide 2mg capsule PO PRN ×2 (15:07→21:14)
--- NOTE | 2021-07-17 18:35 | NUR ---
Problems reprioritized. Patient report given, questions answered & plan of care reviewed with MARIO WILDE.
[2021-07-17 19:00] VITALS: BP 115/71
[2021-07-17] MEDS: pregabalin 75mg capsule PO SCH (21:14)
[2021-07-17] MEDS: duloxetine 30mg CAPSULE.DR PO SCH (21:15)
[2021-07-18] VITALS: BP 129/83
[2021-07-18] MEDS: oxyCODONE/APAP 10/325mg tablet PO PRN ×6 (00:08→22:41)
[2021-07-18] MEDS: normal saline 1000ml 1,000 ML IV SCH ×2 (00:12→16:00)
[2021-07-18 07:10] VITALS: BP 99/59
[2021-07-18] MEDS: lactobacillus rhamnosus 10,000 MMU CELLS/CAPSULE PO SCH (07:56)
[2021-07-18] MEDS: pantoprazole 40mg Tablet.DR PO SCH (07:56)
[2021-07-18] MEDS: cholecalciferol (vitamin D3) 1,000 unit (25mcg) tablet PO SCH (07:57)
[2021-07-18] MEDS: levoTHYROXINE 75mcg tablet PO SCH (07:57)
[2021-07-18] MEDS: heparin, porcine 5000 units/ml vial SQ SCH ×2 (07:59→22:44)
[2021-07-18] MEDS: amLODIPine 5mg tablet PO SCH (08:00)
[2021-07-18] MEDS: mineral oil/petrolatum, white cream 113gm jar TP SCH (08:00)
[2021-07-18] MEDS: nystatin 15 GM powder TP SCH ×3 (08:00→21:00)
[2021-07-18] MEDS: polyethylene glycol 3350 17gm powd pack PO SCH (08:00)
[2021-07-18] MEDS: K and/or MAG REPLACEMENT MC SCH ×2 (08:00→20:00)
[2021-07-18] MEDS: docusate sod 100mg capsule PO SCH ×2 (08:00→20:00)
[2021-07-18] MEDS: loperamide 2mg capsule PO PRN ×2 (08:47→22:41)
[2021-07-18] MEDS: cefazolin/dext.iso 2gm/100ml 100 ML IV SCH ×2 (08:47→17:31)
--- NOTE | 2021-07-18 13:35 | NUR ---
patient given percocet q4hrly for pain with effect.seen by Dr maher , all cares continue
[2021-07-18 16:00] LABS: BASOPHILS # (AUTO) 0.1 X10'3 (0-0.2); BASOPHILS % (AUTO) 0.7 % (0-1); EOSINOPHILS # (AUTO) 0.3 X10'3 (0-0.9); EOSINOPHILS % (AUTO) 3.1 % (0-6); HEMATOCRIT 34.1 % (35.0-45.0); HEMOGLOBIN 10.8 g/dl (12.0-16.0); LYMPHOCYTES # (AUTO) 1.3 X10'3 (1.1-4.8); LYMPHOCYTES % (AUTO) 14.2 % (21-51); MEAN CORPUSCULAR HEMOGLOBIN 23.7 PG (27.0-31.0); MEAN CORPUSCULAR HGB CONC 31.5 g/dL (33.0-36.5); MEAN PLATELET VOLUME 7.9 FL (7.4-10.4); MONOCYTES # (AUTO) 0.6 X10'3 (0-0.9); MONOCYTES % (AUTO) 6.2 % (2-12); NEUTROPHILS # (AUTO) 6.9 X10'3 (1.8-7.7); NEUTROPHILS % (AUTO) 75.8 % (42-75); PLATELET COUNT 412 X10'3 (140-440); RED BLOOD COUNT 4.55 X10'6 (4.20-5.60); RED CELL DISTRIBUTION WIDTH 18.4 % (11.5-14.5); WHITE BLOOD COUNT 9.1 X10'3 (4.5-11.0)
[2021-07-18 16:05] LABS: ALBUMIN 3.1 G/DL (3.4-5.0); ANION GAP 8 (8-16); BLOOD UREA NITROGEN 11 MG/DL (7-18); BUN/CREATININE RATIO 19.3 (6.6-38.0); CALCIUM 9.5 MG/DL (8.5-10.1); CHLORIDE 109 MMOL/L (99-107); CREATININE 0.57 MG/DL (0.40-0.90); GLUCOSE 129 MG/DL (70-104); POTASSIUM 3.6 MMOL/L (3.5-5.1); SODIUM 145 MMOL/L (135-145); TOTAL CARBON DIOXIDE 27.9 MMOL/L (24-32); eGFR > 90 ML/MIN
--- NOTE | 2021-07-18 19:29 | NUR ---
patient transferred to [facility] [place] continues with ABX PICCl line placed by PICC RN Brianne in [place] labs sent . No drainage observed on right AKA dressing. Report given to Maxwell MARTIN
[2021-07-18 22:00] VITALS: BP 126/83
[2021-07-18] MEDS: pregabalin 75mg capsule PO SCH (22:41)
[2021-07-18] MEDS: duloxetine 30mg CAPSULE.DR PO SCH (23:54)
[2021-07-19] MEDS: cefazolin/dext.iso 2gm/100ml 100 ML IV SCH ×3 (00:27→16:30)
[2021-07-19] MEDS: oxyCODONE/APAP 10/325mg tablet PO PRN ×5 (03:27→20:43)
[2021-07-19] MEDS: normal saline 1000ml 1,000 ML IV SCH ×2 (03:29→17:10)
[2021-07-19 06:00] VITALS: BP 111/76
--- NOTE | 2021-07-19 06:38 | NUR ---
Patient in room ORTHO 4023. I have received report from MARIO Arreola and had the opportunity to ask questions and assume patient care.
[2021-07-19] MEDS: amLODIPine 5mg tablet PO SCH (08:00)
[2021-07-19] MEDS: nystatin 15 GM powder TP SCH ×2 (08:00→20:00)
[2021-07-19] MEDS: docusate sod 100mg capsule PO SCH ×2 (08:00→20:00)
[2021-07-19] MEDS: polyethylene glycol 3350 17gm powd pack PO SCH (08:00)
[2021-07-19] MEDS: levoTHYROXINE 75mcg tablet PO SCH (08:16)
[2021-07-19] MEDS: loperamide 2mg capsule PO PRN (08:16)
[2021-07-19] MEDS: pantoprazole 40mg Tablet.DR PO SCH (08:16)
[2021-07-19] MEDS: cholecalciferol (vitamin D3) 1,000 unit (25mcg) tablet PO SCH (08:17)
[2021-07-19] MEDS: heparin, porcine 5000 units/ml vial SQ SCH ×2 (08:17→20:41)
[2021-07-19] MEDS: mineral oil/petrolatum, white cream 113gm jar TP SCH (08:18)
[2021-07-19 10:00] VITALS: BP 124/62
--- NOTE | 2021-07-19 14:22 | NUR ---
F/u 07/19: Pt PO 75-100% avg regular diet w/ decline to 50-75% avg meals yesterday though overall 75% avg meals meeting minimum estimated needs post-op. Saurav ONS still pending verification in EMR; RD d/w RN regarding ONS verification as placed as recommendation under two MD's this admit neither verified. Would benefit from Saurav given wound healing needs. LBM 07/18 receiving PRN imodium 07/19 w/ routine bowel care held at this time. Will continue to monitor for protein/kcal needs this admit. Recommendations: 1) Continue regular diet 2) Saurav [place], pending MD approval in EMR 3) bowel care per rx; anti-diarrheal per MD 4) Scaled weight this admit; weekly scaled weights thereafter Addendum: 07/19/21 at [address] Amended: Links added.
[2021-07-19 18:00] VITALS: BP 132/81
--- NOTE | 2021-07-19 18:28 | NUR ---
Problems reprioritized. Patient report given, questions answered & plan of care reviewed with MARIO Arreola.
[2021-07-19] MEDS: lactobacillus rhamnosus 10,000 MMU CELLS/CAPSULE PO SCH (20:00)
[2021-07-19] MEDS: pregabalin 75mg capsule PO SCH (20:38)
[2021-07-19] MEDS: duloxetine 30mg CAPSULE.DR PO SCH (20:42)
[2021-07-19 22:00] VITALS: BP 121/76
[2021-07-20] MEDS: cefazolin/dext.iso 2gm/100ml 100 ML IV SCH ×3 (00:37→15:31)
[2021-07-20] MEDS: oxyCODONE/APAP 10/325mg tablet PO PRN ×6 (00:40→21:29)
[2021-07-20 01:54] VITALS: BP 121/76
--- NOTE | 2021-07-20 05:14 | NUR ---
Patient in room ORTHO 4023. I have received report from Emily MARTIN and had the opportunity to ask questions and assume patient care.
[2021-07-20] MEDS: normal saline 1000ml 1,000 ML IV SCH ×2 (06:30→09:43)
--- NOTE | 2021-07-20 06:31 | NUR ---
Problems reprioritized. Patient report given, questions answered & plan of care reviewed with Pedro MARTIN.
--- NOTE | 2021-07-20 06:31 | NUR ---
Patient in room ORTHO 4023. I have received report from MARIO Arreola and had the opportunity to ask questions and assume patient care.
[2021-07-20 06:49] VITALS: BP 117/70
[2021-07-20] MEDS: levoTHYROXINE 75mcg tablet PO SCH (07:37)
[2021-07-20] MEDS: pantoprazole 40mg Tablet.DR PO SCH (07:37)
[2021-07-20] MEDS: lactobacillus rhamnosus 10,000 MMU CELLS/CAPSULE PO SCH ×2 (07:38→20:26)
[2021-07-20] MEDS: cholecalciferol (vitamin D3) 1,000 unit (25mcg) tablet PO SCH (07:38)
[2021-07-20] MEDS: amLODIPine 5mg tablet PO SCH (07:38)
[2021-07-20] MEDS: nystatin 15 GM powder TP SCH ×2 (07:39→20:27)
[2021-07-20] MEDS: heparin, porcine 5000 units/ml vial SQ SCH ×2 (07:39→20:27)
[2021-07-20] MEDS: mineral oil/petrolatum, white cream 113gm jar TP SCH (07:39)
[2021-07-20] MEDS: docusate sod 100mg capsule PO SCH ×2 (08:00→20:00)
[2021-07-20] MEDS: polyethylene glycol 3350 17gm powd pack PO SCH (08:00)
[2021-07-20 10:00] VITALS: BP 106/69
[2021-07-20] MEDS: JUVEN Shake w/Arg/Glut/Ca2+Bmb (Juven 19.3gm) pkt 240ml PO SCH ×2 (12:51→17:37)
[2021-07-20] MEDS: loperamide 2mg capsule PO PRN (13:37)
[2021-07-20 18:00] VITALS: BP 113/74
--- NOTE | 2021-07-20 18:24 | NUR ---
Problems reprioritized. Patient report given, questions answered & plan of care reviewed with Dariusz Aguilar.
--- NOTE | 2021-07-20 18:54 | NUR ---
Patient in room ORTHO 4023. I have received report from MARIO Miranda and had the opportunity to ask questions and assume patient care.
[2021-07-20] MEDS: pregabalin 75mg capsule PO SCH (20:26)
[2021-07-20] MEDS: duloxetine 30mg CAPSULE.DR PO SCH (20:27)
[2021-07-20 22:00] VITALS: BP 121/80
[2021-07-21] MEDS: cefazolin/dext.iso 2gm/100ml 100 ML IV SCH ×3 (00:06→16:34)
[2021-07-21] MEDS: oxyCODONE/APAP 10/325mg tablet PO PRN ×5 (03:30→20:33)
[2021-07-21 06:30] VITALS: BP 96/44
--- NOTE | 2021-07-21 06:34 | NUR ---
Problems reprioritized. Patient report given, questions answered & plan of care reviewed with MARIO Mercado.
[2021-07-21] MEDS: amLODIPine 5mg tablet PO SCH (07:33)
[2021-07-21] MEDS: pantoprazole 40mg Tablet.DR PO SCH (07:44)
[2021-07-21] MEDS: cholecalciferol (vitamin D3) 1,000 unit (25mcg) tablet PO SCH (07:44)
[2021-07-21] MEDS: levoTHYROXINE 75mcg tablet PO SCH (07:44)
[2021-07-21] MEDS: lactobacillus rhamnosus 10,000 MMU CELLS/CAPSULE PO SCH ×2 (07:44→20:34)
[2021-07-21] MEDS: heparin, porcine 5000 units/ml vial SQ SCH ×2 (07:45→20:35)
[2021-07-21] MEDS: docusate sod 100mg capsule PO SCH ×2 (07:46→20:00)
[2021-07-21] MEDS: polyethylene glycol 3350 17gm powd pack PO SCH (07:47)
[2021-07-21] MEDS: mineral oil/petrolatum, white cream 113gm jar TP SCH (07:47)
[2021-07-21] MEDS: nystatin 15 GM powder TP SCH ×2 (07:47→20:35)
[2021-07-21] MEDS: normal saline 1000ml 1,000 ML IV SCH ×2 (09:10→16:39)
[2021-07-21 10:00] VITALS: BP 119/76
[2021-07-21 12:22] LABS: ALBUMIN 2.8 G/DL (3.4-5.0); ANION GAP 9 (8-16); BLOOD UREA NITROGEN 8 MG/DL (7-18); BUN/CREATININE RATIO 17.4 (6.6-38.0); CALCIUM 8.6 MG/DL (8.5-10.1); CHLORIDE 107 MMOL/L (99-107); CREATININE 0.46 MG/DL (0.40-0.90); GLUCOSE 91 MG/DL (70-104); POTASSIUM 3.9 MMOL/L (3.5-5.1); SODIUM 144 MMOL/L (135-145); TOTAL CARBON DIOXIDE 28.1 MMOL/L (24-32); eGFR > 90 ML/MIN
[2021-07-21 12:30] LABS: BASOPHILS # (AUTO) 0.1 X10'3 (0-0.2); BASOPHILS % (AUTO) 0.8 % (0-1); EOSINOPHILS # (AUTO) 0.3 X10'3 (0-0.9); EOSINOPHILS % (AUTO) 4.3 % (0-6); HEMATOCRIT 31.1 % (35.0-45.0); HEMOGLOBIN 9.8 g/dl (12.0-16.0); LYMPHOCYTES # (AUTO) 1.8 X10'3 (1.1-4.8); LYMPHOCYTES % (AUTO) 23.5 % (21-51); MEAN CORPUSCULAR HEMOGLOBIN 23.5 PG (27.0-31.0); MEAN CORPUSCULAR HGB CONC 31.5 g/dL (33.0-36.5); MEAN CORPUSCULAR VOLUME 74.5 FL (78-98); MEAN PLATELET VOLUME 7.9 FL (7.4-10.4); MONOCYTES # (AUTO) 0.6 X10'3 (0-0.9); MONOCYTES % (AUTO) 7.6 % (2-12); NEUTROPHILS # (AUTO) 4.8 X10'3 (1.8-7.7); NEUTROPHILS % (AUTO) 63.8 % (42-75); PLATELET COUNT 336 X10'3 (140-440); RED BLOOD COUNT 4.17 X10'6 (4.20-5.60); RED CELL DISTRIBUTION WIDTH 18.2 % (11.5-14.5); WHITE BLOOD COUNT 7.5 X10'3 (4.5-11.0)
[2021-07-21] MEDS: JUVEN Shake w/Arg/Glut/Ca2+Bmb (Juven 19.3gm) pkt 240ml PO SCH ×3 (12:30→18:24)
--- NOTE | 2021-07-21 18:52 | NUR ---
Patient in room ORTHO 4023. I have received report from MARIO SCHULTZ and had the opportunity to ask questions and assume patient care.
[2021-07-21] MEDS: pregabalin 75mg capsule PO SCH (20:33)
[2021-07-21] MEDS: duloxetine 30mg CAPSULE.DR PO SCH (20:33)
[2021-07-21 22:00] VITALS: BP 135/80
[2021-07-22] MEDS: cefazolin/dext.iso 2gm/100ml 100 ML IV SCH ×4 (00:40→23:12)
[2021-07-22] MEDS: oxyCODONE/APAP 10/325mg tablet PO PRN ×6 (00:43→21:56)
[2021-07-22] MEDS: normal saline 1000ml 1,000 ML IV SCH ×2 (05:51→23:12)
--- NOTE | 2021-07-22 06:06 | NUR ---
Problems reprioritized. Patient report given, questions answered & plan of care reviewed with MARIO SCHULTZ.
--- NOTE | 2021-07-22 06:21 | NUR ---
Patient in room ORTHO 4023. I have received report from mehran leung and had the opportunity to ask questions and assume patient care.
[2021-07-22 06:29] VITALS: BP 114/68
[2021-07-22] MEDS: polyethylene glycol 3350 17gm powd pack PO SCH (08:00)
[2021-07-22] MEDS: docusate sod 100mg capsule PO SCH ×2 (08:00→20:00)
[2021-07-22] MEDS: amLODIPine 5mg tablet PO SCH (08:00)
[2021-07-22] MEDS: lactobacillus rhamnosus 10,000 MMU CELLS/CAPSULE PO SCH ×2 (08:37→20:26)
[2021-07-22] MEDS: pantoprazole 40mg Tablet.DR PO SCH (08:37)
[2021-07-22] MEDS: levoTHYROXINE 75mcg tablet PO SCH (08:37)
[2021-07-22] MEDS: mineral oil/petrolatum, white cream 113gm jar TP SCH (08:38)
[2021-07-22] MEDS: cholecalciferol (vitamin D3) 1,000 unit (25mcg) tablet PO SCH (08:38)
[2021-07-22] MEDS: nystatin 15 GM powder TP SCH ×2 (08:38→20:29)
[2021-07-22] MEDS: heparin, porcine 5000 units/ml vial SQ SCH ×2 (08:38→20:27)
[2021-07-22 10:00] VITALS: BP 105/76
[2021-07-22] MEDS: JUVEN Shake w/Arg/Glut/Ca2+Bmb (Juven 19.3gm) pkt 240ml PO SCH ×2 (13:21→17:35)
[2021-07-22 18:00] VITALS: BP_SYST 118; BP_SYST 125; BP_DIAS 70; BP_DIAS 74
--- NOTE | 2021-07-22 18:27 | NUR ---
Problems reprioritized. Patient report given, questions answered & plan of care reviewed with mehran leung.
[2021-07-22] MEDS: duloxetine 30mg CAPSULE.DR PO SCH (20:26)
[2021-07-22] MEDS: pregabalin 75mg capsule PO SCH (20:26)
[2021-07-22 22:00] VITALS: BP 132/77
[2021-07-23] MEDS: oxyCODONE/APAP 10/325mg tablet PO PRN ×5 (04:37→22:05)
--- NOTE | 2021-07-23 06:28 | NUR ---
Problems reprioritized. Patient report given, questions answered & plan of care reviewed with MARIO VENTURA.
--- NOTE | 2021-07-23 06:37 | NUR ---
Problems reprioritized. Patient report given, questions answered & plan of care reviewed with MARIO DAVID.
--- NOTE | 2021-07-23 06:39 | NUR ---
Patient in room ORTHO 4023. I have received report from Tianna MARTIN and had the opportunity to ask questions and assume patient care.
[2021-07-23] MEDS: docusate sod 100mg capsule PO SCH ×2 (08:00→20:00)
[2021-07-23] MEDS: polyethylene glycol 3350 17gm powd pack PO SCH (08:00)
[2021-07-23] MEDS: nystatin 15 GM powder TP SCH ×2 (08:00→20:58)
[2021-07-23 08:55] VITALS: BP 112/79
[2021-07-23] MEDS: cefazolin/dext.iso 2gm/100ml 100 ML IV SCH ×2 (09:03→18:09)
[2021-07-23] MEDS: pantoprazole 40mg Tablet.DR PO SCH (09:05)
[2021-07-23] MEDS: lactobacillus rhamnosus 10,000 MMU CELLS/CAPSULE PO SCH ×2 (09:05→20:57)
[2021-07-23] MEDS: amLODIPine 5mg tablet PO SCH (09:05)
[2021-07-23] MEDS: levoTHYROXINE 75mcg tablet PO SCH (09:06)
[2021-07-23] MEDS: cholecalciferol (vitamin D3) 1,000 unit (25mcg) tablet PO SCH (09:06)
[2021-07-23] MEDS: mineral oil/petrolatum, white cream 113gm jar TP SCH (09:07)
[2021-07-23] MEDS: heparin, porcine 5000 units/ml vial SQ SCH ×2 (09:08→20:58)
[2021-07-23 10:00] VITALS: BP 113/88
--- NOTE | 2021-07-23 11:46 | NUR ---
F/u 07/23: Pt PO 100% regular diet and Saurav ONS BIDLD meeting needs. LBM 07/22 w/ bowel care held for frequent stools received PRN imodium 07/20 per EMR. Last CMP 07/21. No further nutrition intervention at this time. Will continue to monitor. Recommendations: 1) Continue regular diet 2) Saurav shake BIDLD 3) bowel care per rx; anti-diarrheal per MD 4) Scaled weight this admit; weekly scaled weights thereafter Addendum: 07/23/21 at [address] Amended: Links added.
[2021-07-23] MEDS: JUVEN Shake w/Arg/Glut/Ca2+Bmb (Juven 19.3gm) pkt 240ml PO SCH ×2 (12:30→17:30)
--- NOTE | 2021-07-23 12:47 | NUR ---
Patient arrived to [facility] at 0025 per patient.
--- NOTE | 2021-07-23 14:03 | NUR ---
pt said that hospitalist wanted to see her son's covid test result day pt showed my photo of son, sherry medina's result from [facility] on [address] [facility]. the covid test said that it was collected on 07/11 and that sherry was positive on 07/14 the number for this test is [id number]
[2021-07-23 18:00] VITALS: BP 118/74
--- NOTE | 2021-07-23 19:07 | NUR ---
Patient in room MOE 340. I have received report from MARIO Santamaria and had the opportunity to ask questions and assume patient care.
[2021-07-23] MEDS: duloxetine 30mg CAPSULE.DR PO SCH (20:57)
[2021-07-23] MEDS: pregabalin 75mg capsule PO SCH (20:57)
[2021-07-23] MEDS: normal saline 1000ml 1,000 ML IV SCH (21:00)
[2021-07-24] VITALS: BP_SYST 112; BP_SYST 132; BP_DIAS 67; BP_DIAS 79
[2021-07-24] MEDS: cefazolin/dext.iso 2gm/100ml 100 ML IV SCH ×3 (00:53→16:00)
[2021-07-24] MEDS: normal saline 1000ml 1,000 ML IV SCH (03:50)
--- NOTE | 2021-07-24 06:22 | NUR ---
Problems reprioritized. Patient report given, questions answered & plan of care reviewed with MARIO Esteban.
--- NOTE | 2021-07-24 06:38 | NUR ---
Patient in room MOE 340. I have received report from MARIO Jessica and had the opportunity to ask questions and assume patient care.
[2021-07-24 07:00] VITALS: BP_SYST 100; BP_SYST 121; BP_DIAS 60; BP_DIAS 80
[2021-07-24 08:00] VITALS: BP_SYST 100
[2021-07-24] MEDS: amLODIPine 5mg tablet PO SCH (08:00)
[2021-07-24] MEDS: polyethylene glycol 3350 17gm powd pack PO SCH (08:00)
[2021-07-24] MEDS: docusate sod 100mg capsule PO SCH (08:00)
[2021-07-24] MEDS: lactobacillus rhamnosus 10,000 MMU CELLS/CAPSULE PO SCH (08:28)
[2021-07-24] MEDS: levoTHYROXINE 75mcg tablet PO SCH (08:29)
[2021-07-24] MEDS: cholecalciferol (vitamin D3) 1,000 unit (25mcg) tablet PO SCH (08:29)
[2021-07-24] MEDS: pantoprazole 40mg Tablet.DR PO SCH (08:29)
[2021-07-24] MEDS: heparin, porcine 5000 units/ml vial SQ SCH (08:30)
[2021-07-24] MEDS: oxyCODONE/APAP 10/325mg tablet PO PRN ×3 (08:31→17:43)
[2021-07-24] MEDS: nystatin 15 GM powder TP SCH (08:38)
[2021-07-24] MEDS: mineral oil/petrolatum, white cream 113gm jar TP SCH (08:38)
[2021-07-24] MEDS: JUVEN Shake w/Arg/Glut/Ca2+Bmb (Juven 19.3gm) pkt 240ml PO SCH (13:03)
[2021-07-24] MEDS ORDERED: OXYC1TAB17 PO (13:44)
[2021-07-24] MEDS ORDERED: LACT1CAP26 PO (13:44)
[2021-07-24] MEDS ORDERED: NOR5T PO (13:44)
[2021-07-24] MEDS ORDERED: LEVO75TA7 PO (13:44)
[2021-07-24] MEDS ORDERED: PREG150C46 PO (17:54)
--- NOTE | 2021-07-24 18:40 | NUR ---
Pt Dc with all belongings. instructions reviewed with verbal understanding of post DC care. Pt sent with PICC line flushed along with paperwork for Lance for picc.
== END 2021-07-24 18:50 | disposition home health service (06) | DRG 309 ==
LOC: ER 11:59 → ED HOLD 14:35 → SUR 3N 20:00 → ORTHO 4S 07-18 16:06 → SUR 3N 07-23 12:05
PROVIDERS: ADMIT Family Medicine; ATTEND Family Medicine
PROC: 0QBB0ZZ Excision of Right Lower Femur, Open Approach (ICD-10-PCS; principal; 2021-07-10 11:22)
PROC: 02HV33Z Insertion of Infusion Device into Superior Vena Cava, Percutaneous Approach (ICD-10-PCS; 2021-07-24)
PROC: B548ZZA Ultrasonography of Superior Vena Cava, Guidance (ICD-10-PCS; 2021-07-24)
DX: T87.43 Infection of amputation stump, right lower extremity (principal); E11.40 Type 2 diabetes mellitus with diabetic neuropathy, unspecified; M86.8X6 Other osteomyelitis, lower leg; E11.69 Type 2 diabetes mellitus with other specified complication; E03.9 Hypothyroidism, unspecified; B95.61 Methicillin susceptible Staphylococcus aureus infection as the cause of diseases classified elsewhere; B95.1 Streptococcus, group B, as the cause of diseases classified elsewhere; E66.01 Morbid (severe) obesity due to excess calories; I10 Essential (primary) hypertension; T87.81 Dehiscence of amputation stump; I89.0 Lymphedema, not elsewhere classified; K21.9 Gastro-esophageal reflux disease without esophagitis; Y83.5 Amputation of limb(s) as the cause of abnormal reaction of the patient, or of later complication, without mention of misadventure at the time of the procedure; M79.10 Myalgia, unspecified site; R53.81 Other malaise; Z16.24 Resistance to multiple antibiotics; R94.6 Abnormal results of thyroid function studies; N39.0 Urinary tract infection, site not specified; Y92.89 Other specified places as the place of occurrence of the external cause; Z79.890 Hormone replacement therapy; Z79.899 Other long term (current) drug therapy; Z80.7 Family history of other malignant neoplasms of lymphoid, hematopoietic and related tissues; Z80.8 Family history of malignant neoplasm of other organs or systems; Z87.39 Personal history of other diseases of the musculoskeletal system and connective tissue; Z68.31 Body mass index [BMI] 31.0-31.9, adult; Z88.5 Allergy status to narcotic agent; Z90.49 Acquired absence of other specified parts of digestive tract; Z87.891 Personal history of nicotine dependence
CPT/HCPCS: 36415; 36573; 80048; 80053; 80061; 80202; 80305; 81003; 82948; 83036; 83605; 83735; 84100; 84132; 84145; 84439; 84443; 85025; 85610; 85651; 85730; 86140; 86885; 86900; 86901; 87040; 87070; 87075; 87077; 87081; 87186; 87635; 93005; 97110; 97112; 97140; 97161; 97530; 97535; 97542; 99285; A4618; A6222; A6253; A6446; A6449; A7000; G0378; J0131; J0360; J0696; J0780; J1170; J1644; J1956; J2001; J2175; J2250; J2270; J2405; J2704; J3010; J3370; J7030

== ENCOUNTER 2021-08-28 14:17 | Inpatient (IN) | payer MEDICAID ==
[~2021-08-28] VITALS: Ht 182.9 cm; Wt 115.0 kg
[~2021-08-28 14:17] MED LIST changes: +CHOL500050 PO; +DOCU-345 PO; +DULO60CA65 PO; +LACT1CAP26 PO; +LEVO75TA7 PO; +NOR5T PO; +OXYC1TAB17 PO; +PANT40TA54 PO; +PREG150C46 PO; -TRIA15CR62 TP
[2021-08-28] MEDS ORDERED: vancomycin/NS 1 GM ADD-VANTAGE 250 ML IV ONE (14:45)
[2021-08-28] MEDS ORDERED: piperacillin/tazo 3.375gm/50ml 50 ML IV ONE (14:45)
[2021-08-28] MEDS ORDERED: normal saline 1000ML IV soln IV ONE (14:45)
[2021-08-28] MEDS ORDERED: LEVO75TA7 PO (14:59)
[2021-08-28] MEDS ORDERED: AMLO5TAB16 PO (14:59)
[2021-08-28] MEDS ORDERED: PREG150C PO (14:59)
[2021-08-28] MEDS ORDERED: OXYC-138 PO (14:59)
[2021-08-28] MEDS ORDERED: CEPH500C2 PO (15:04)
[2021-08-28 15:15] LABS: BASOPHILS # (AUTO) 0.1 X10'3 (0-0.2); BASOPHILS % (AUTO) 0.8 % (0-1); EOSINOPHILS # (AUTO) 0.3 X10'3 (0-0.9); EOSINOPHILS % (AUTO) 3.4 % (0-6); HEMATOCRIT 36.1 % (35.0-45.0); HEMOGLOBIN 11.3 g/dl (12.0-16.0); LYMPHOCYTES # (AUTO) 1.5 X10'3 (1.1-4.8); LYMPHOCYTES % (AUTO) 18.5 % (21-51); MEAN CORPUSCULAR HEMOGLOBIN 23.2 PG (27.0-31.0); MEAN CORPUSCULAR HGB CONC 31.3 g/dL (33.0-36.5); MEAN CORPUSCULAR VOLUME 74.1 FL (78-98); MEAN PLATELET VOLUME 7.7 FL (7.4-10.4); MONOCYTES # (AUTO) 0.5 X10'3 (0-0.9); MONOCYTES % (AUTO) 6.4 % (2-12); NEUTROPHILS # (AUTO) 5.9 X10'3 (1.8-7.7); NEUTROPHILS % (AUTO) 70.9 % (42-75); PLATELET COUNT 513 X10'3 (140-440); RED BLOOD COUNT 4.87 X10'6 (4.20-5.60); RED CELL DISTRIBUTION WIDTH 16.6 % (11.5-14.5); WHITE BLOOD COUNT 8.3 X10'3 (4.5-11.0)
[2021-08-28] MEDS ORDERED: magnesium 2GM in 50ml NS 50 ML IV PRN (15:15)
[2021-08-28] MEDS ORDERED: potassium Cl 40MEQ/1/2NS 520ml 520 ML IV PRN ×2 (15:15)
[2021-08-28] MEDS ORDERED: bisacodyl 10mg suppository rectal RC PRN (15:15)
[2021-08-28] MEDS ORDERED: HYDROcodone/acetaminophen 5mg/325mg tablet PO PRN (15:15)
[2021-08-28] MEDS ORDERED: magnesium 4gm in 100ml NS 100 ML IV PRN (15:15)
[2021-08-28] MEDS ORDERED: mag hydrox/Alum hydrox/simeth 30ml oral suspension PO PRN (15:15)
[2021-08-28] MEDS ORDERED: magnesium Cl slow-release 64mg tablet PO PRN (15:15)
[2021-08-28] MEDS ORDERED: acetaminophen 325mg tablet PO PRN ×2 (15:15)
[2021-08-28] MEDS ORDERED: ondansetron/PF 4mg/2ml inj IV PRN (15:15)
[2021-08-28] MEDS ORDERED: magnesium hydroxide 30ml (MOM) UD suspension PO PRN (15:15)
[2021-08-28] MEDS ORDERED: potassium Cl 20 mEq SR tablet PO PRN ×2 (15:15)
[2021-08-28] MEDS ORDERED: oxyCODONE/APAP 10/325mg tablet PO PRN (15:20)
[2021-08-28 15:43] LABS: ALANINE AMINOTRANSFERASE 18 U/L (12-78); ALBUMIN 3.3 G/DL (3.4-5.0); ALBUMIN/GLOBULIN RATIO 0.8 (1.1-1.5); ALKALINE PHOSPHATASE 126 IU/L (46-116); ANION GAP 8 (8-16); ASPARTATE AMINO TRANSFERASE 10 U/L (10-37); BILIRUBIN,TOTAL 0.2 MG/DL (0.1-1.0); BLOOD UREA NITROGEN 12 MG/DL (7-18); BUN/CREATININE RATIO 18.5 (6.6-38.0); CALCIUM 9.6 MG/DL (8.5-10.1); CHLORIDE 107 MMOL/L (99-107); CREATININE 0.65 MG/DL (0.40-0.90); GLUCOSE 103 MG/DL (70-104); POTASSIUM 3.8 MMOL/L (3.5-5.1); SODIUM 145 MMOL/L (135-145); TOTAL PROTEIN 7.7 G/DL (6.4-8.2); eGFR > 90 ML/MIN
[2021-08-28] MEDS: HYDROmorphone inj. 0.5 MG/0.5 ML DISP.SYRIN IV PRN ×2 (17:16→19:41)
[2021-08-28] MEDS: normal saline 1000ml 1,000 ML IV SCH (17:48)
--- NOTE | 2021-08-28 19:59 | NUR ---
assisting RN with pt care, pt is going to OR at 0730 tomorrow morning, NPO after midnight, pt is eating dinner, adalid well, no n/v, medicated per MD order for pain,
[2021-08-28] MEDS: docusate sod 100mg capsule PO SCH (20:00)
[2021-08-28] MEDS: K and/or MAG REPLACEMENT MC SCH (20:00)
[2021-08-28] MEDS: duloxetine 30mg CAPSULE.DR PO SCH (21:00)
[2021-08-28] MEDS: pregabalin 75mg capsule PO SCH (21:56)
[2021-08-28] MEDS: vancomycin/NS 1 GM ADD-VANTAGE 250 ML X 1 DOSE IV SCH (21:56)
[2021-08-28] MEDS ORDERED: HYDROmorphone inj. 0.5 MG/0.5 ML DISP.SYRIN IV ONE (22:05)
[2021-08-29] VITALS (24 sets, daily range): BP systolic 113–142; BP diastolic 61–117
[2021-08-29] MEDS: piperacillin/tazo 3.375gm/50ml 50 ML IV SCH ×4 (01:58→23:31)
[2021-08-29] MEDS: normal saline 1000ml 1,000 ML IV SCH ×3 (02:10→21:15)
[2021-08-29 02:32] LABS: UA COLLECTION TYPE NON-SPECIFIED
[2021-08-29 02:33] LABS: CLARITY,URINE CLEAR (Clear); COLOR,URINE YELLOW (Yellow); GLUCOSE, URINE NEGATIVE (Neg); KETONES,URINE NEGATIVE (Neg); LEUKOCYTE ESTERASE ,URINE NEGATIVE (Neg); NITRITES, URINE NEGATIVE (Neg); OCCULT BLOOD,URINE NEGATIVE (Neg); PH,URINE 6.5 (4.8-8.0); PROTEIN,URINE NEGATIVE (Neg); UROBILINOGEN,URINE 0.2 E.U/dL (0.2-1.0)
[2021-08-29 02:51] LABS: URINE AMPHETAMINE SCREEN NEGATIVE (Neg); URINE BARBITUATE SCREEN NEGATIVE (Neg); URINE BENZODIAZEPINES SCREEN NEGATIVE (Neg); URINE CANNABINOID SCREEN NEGATIVE (Neg); URINE COCAINE SCREEN NEGATIVE (Neg); URINE METHADONE SCREEN NEGATIVE (Neg); URINE OPIATE SCREEN POSITIVE (Neg); URINE PHENCYCLIDINE SCREEN NEGATIVE (Neg)
[2021-08-29 03:24] LABS: ALANINE AMINOTRANSFERASE 11 U/L (12-78); ALBUMIN/GLOBULIN RATIO 0.7 (1.1-1.5); ALKALINE PHOSPHATASE 112 IU/L (46-116); ANION GAP 9 (8-16); ASPARTATE AMINO TRANSFERASE 11 U/L (10-37); BILIRUBIN,TOTAL 0.2 MG/DL (0.1-1.0); BLOOD UREA NITROGEN 10 MG/DL (7-18); BUN/CREATININE RATIO 14.9 (6.6-38.0); CALCIUM 9.4 MG/DL (8.5-10.1); CHLORIDE 110 MMOL/L (99-107); CREATININE 0.67 MG/DL (0.40-0.90); GLUCOSE 101 MG/DL (70-104); SODIUM 145 MMOL/L (135-145); TOTAL CARBON DIOXIDE 25.6 MMOL/L (24-32); TOTAL PROTEIN 7.3 G/DL (6.4-8.2); eGFR > 90 ML/MIN
[2021-08-29] MEDS: HYDROmorphone inj. 0.5 MG/0.5 ML DISP.SYRIN IV PRN ×4 (03:29→23:28)
[2021-08-29 04:10] LABS: BASOPHILS # (AUTO) 0.1 X10'3 (0-0.2); BASOPHILS % (AUTO) 0.7 % (0-1); EOSINOPHILS # (AUTO) 0.3 X10'3 (0-0.9); EOSINOPHILS % (AUTO) 3.7 % (0-6); HEMATOCRIT 33.8 % (35.0-45.0); HEMOGLOBIN 10.9 g/dl (12.0-16.0); LYMPHOCYTES # (AUTO) 1.7 X10'3 (1.1-4.8); LYMPHOCYTES % (AUTO) 19.8 % (21-51); MEAN CORPUSCULAR HEMOGLOBIN 23.5 PG (27.0-31.0); MEAN CORPUSCULAR HGB CONC 32.3 g/dL (33.0-36.5); MEAN CORPUSCULAR VOLUME 72.8 FL (78-98); MEAN PLATELET VOLUME 7.6 FL (7.4-10.4); MONOCYTES # (AUTO) 0.7 X10'3 (0-0.9); MONOCYTES % (AUTO) 7.8 % (2-12); NEUTROPHILS # (AUTO) 5.9 X10'3 (1.8-7.7); PLATELET COUNT 415 X10'3 (140-440); RED BLOOD COUNT 4.64 X10'6 (4.20-5.60); RED CELL DISTRIBUTION WIDTH 16.2 % (11.5-14.5); WHITE BLOOD COUNT 8.7 X10'3 (4.5-11.0)
[2021-08-29] MEDS: vancomycin/NS 1 GM ADD-VANTAGE 250 ML X 1 DOSE IV SCH ×3 (06:59→21:47)
[2021-08-29] MEDS: HYDROcodone/acetaminophen 10/325mg tab PO PRN ×3 (06:59→21:54)
[2021-08-29] MEDS: K and/or MAG REPLACEMENT MC SCH ×2 (08:00→19:47)
[2021-08-29] MEDS: docusate sod 100mg capsule PO SCH ×2 (08:00→19:27)
[2021-08-29] MEDS: pantoprazole 40mg Tablet.DR PO SCH (08:53)
[2021-08-29] MEDS: levoTHYROXINE 75mcg tablet PO SCH (08:53)
[2021-08-29] MEDS ORDERED: HYDROmorphone 1 mg/ml syringe ONE (12:56)
[2021-08-29] MEDS ORDERED: sevoflurane 250ml liquid IH ONE (13:07)
[2021-08-29] MEDS ORDERED: rocuronium 10mg/ml inj IV ONE (13:07)
[2021-08-29] MEDS ORDERED: fentaNYL/PF 50MCG/1 ML 2ML syringe ONE (13:09)
[2021-08-29] MEDS ORDERED: midazolam 1 mg/ML 2ml injection ONE (13:09)
[2021-08-29] MEDS ORDERED: VANCOMYCIN LEVEL IV ONE (13:30)
[2021-08-29] MEDS ORDERED: ondansetron/PF 4mg/2ml inj IV PRN (13:35)
[2021-08-29] MEDS ORDERED: morphine 4 MG/ML inj SYRINge IV PRN (13:35)
[2021-08-29] MEDS ORDERED: ringers solution, lacted 1,000 ML IV SCH (13:35)
[2021-08-29] MEDS ORDERED: proCHLORperazine 10 MG/2 ml inj IV PRN (13:35)
[2021-08-29] MEDS ORDERED: meperidine/PF 25mg/ml syringe IV PRN ×3 (13:35)
[2021-08-29] MEDS ORDERED: morphine 2 MG/ML inj. syringe IV PRN (13:35)
[2021-08-29] MEDS ORDERED: propofol inj 20 ML IV ONE (14:02)
--- NOTE | 2021-08-29 14:06 | NUR ---
Received from OR via BED IN STABLE CONDITION , accompanied by Anesthesiologist and CAMPAIGN FUNDRAISER report given by CAMPAIGN FUNDRAISER AND Anesthesiolgist. Addendum: 08/29/21 at 1437 by Nathalia Yusuf RN Amended: Links added.
[2021-08-29] MEDS ORDERED: acetaminophen 1,000mg/100ml IV 100 ML IV ONE (15:15)
--- NOTE | 2021-08-29 16:26 | NUR ---
PATIENT DISCHARGED FROM PACU IN STABLE CONDITION AFTER REPORT GIVEN TO LORENZO MARTIN TAKING OVER PATIENTS CARE. PATIENT TRANSFERRED VIA BED WITH PERSONAL BELONGINGS WITH SATINDER Bruno. Addendum: 08/29/21 at 1707 by Nathalia Yusuf RN Amended: Links added.
--- NOTE | 2021-08-29 17:00 | NUR ---
Pt. admitted to floor. Orienteted to room and post-op VS taken and are running. Wound vac at 125. No order, but this was clarified with chief engineer drilling and recovery. Pt. on RA. Darted, swabbed, and belongings list finished.
--- NOTE | 2021-08-29 18:15 | NUR ---
Report given to Rae MARTIN.
--- NOTE | 2021-08-29 18:17 | NUR ---
Patient in room MOE 345. I have received report from LORENZO MARTIN and had the opportunity to ask questions and assume patient care.
[2021-08-29] MEDS: lactobacillus rhamnosus 10,000 MMU CELLS/CAPSULE PO SCH (19:27)
[2021-08-29] MEDS: pregabalin 75mg capsule PO SCH (21:47)
[2021-08-29] MEDS: duloxetine 30mg CAPSULE.DR PO SCH (21:48)
[2021-08-30] VITALS: BP 149/70
[2021-08-30] MEDS: HYDROcodone/acetaminophen 10/325mg tab PO PRN ×4 (04:22→20:01)
[2021-08-30] MEDS: normal saline 1000ml 1,000 ML IV SCH ×2 (04:25→18:11)
[2021-08-30 04:56] VITALS: BP 122/64
[2021-08-30] MEDS: HYDROmorphone inj. 0.5 MG/0.5 ML DISP.SYRIN IV PRN ×4 (05:51→21:42)
[2021-08-30] MEDS: vancomycin/NS 1 GM ADD-VANTAGE 250 ML X 1 DOSE IV SCH ×2 (05:53→14:30)
--- NOTE | 2021-08-30 06:30 | NUR ---
Patient in room [place] [id number]. I have received report from Eloise MARTIN and had the opportunity to ask questions and assume patient care. Addendum: 08/30/21 at 1809 by Behzad Lazo RN did not receive report from Eloise but did get report from Rae MARTIN
[2021-08-30 06:33] LABS: BASOPHILS # (AUTO) 0.1 X10'3 (0-0.2); BASOPHILS % (AUTO) 0.8 % (0-1); EOSINOPHILS # (AUTO) 0.3 X10'3 (0-0.9); EOSINOPHILS % (AUTO) 4.5 % (0-6); HEMATOCRIT 35.1 % (35.0-45.0); HEMOGLOBIN 10.9 g/dl (12.0-16.0); LYMPHOCYTES # (AUTO) 1.8 X10'3 (1.1-4.8); LYMPHOCYTES % (AUTO) 24.9 % (21-51); MEAN CORPUSCULAR HGB CONC 31.1 g/dL (33.0-36.5); MEAN CORPUSCULAR VOLUME 73.9 FL (78-98); MONOCYTES # (AUTO) 0.6 X10'3 (0-0.9); MONOCYTES % (AUTO) 8.2 % (2-12); NEUTROPHILS # (AUTO) 4.5 X10'3 (1.8-7.7); NEUTROPHILS % (AUTO) 61.6 % (42-75); PLATELET COUNT 486 X10'3 (140-440); RED BLOOD COUNT 4.75 X10'6 (4.20-5.60); RED CELL DISTRIBUTION WIDTH 16.9 % (11.5-14.5); WHITE BLOOD COUNT 7.3 X10'3 (4.5-11.0)
[2021-08-30 07:00] LABS: ALANINE AMINOTRANSFERASE 13 U/L (12-78); ALBUMIN/GLOBULIN RATIO 0.7 (1.1-1.5); ALKALINE PHOSPHATASE 99 IU/L (46-116); ANION GAP 12 (8-16); ASPARTATE AMINO TRANSFERASE 11 U/L (10-37); BILIRUBIN,TOTAL 0.2 MG/DL (0.1-1.0); BLOOD UREA NITROGEN 8 MG/DL (7-18); BUN/CREATININE RATIO 15.1 (6.6-38.0); CALCIUM 9.1 MG/DL (8.5-10.1); CHLORIDE 108 MMOL/L (99-107); CREATININE 0.53 MG/DL (0.40-0.90); GLUCOSE 101 MG/DL (70-104); MAGNESIUM 1.9 MG/DL (1.5-2.4); POTASSIUM 3.5 MMOL/L (3.5-5.1); SODIUM 145 MMOL/L (135-145); TOTAL CARBON DIOXIDE 25.4 MMOL/L (24-32); TOTAL PROTEIN 7.1 G/DL (6.4-8.2); eGFR > 90 ML/MIN
[2021-08-30] MEDS: docusate sod 100mg capsule PO SCH ×2 (08:00→20:19)
[2021-08-30] MEDS: K and/or MAG REPLACEMENT MC SCH ×2 (08:00→19:56)
[2021-08-30] MEDS: levoTHYROXINE 75mcg tablet PO SCH (08:38)
[2021-08-30] MEDS: lactobacillus rhamnosus 10,000 MMU CELLS/CAPSULE PO SCH ×2 (08:38→20:01)
[2021-08-30] MEDS: pantoprazole 40mg Tablet.DR PO SCH (08:38)
[2021-08-30] MEDS: piperacillin/tazo 3.375gm/50ml 50 ML IV SCH ×2 (08:41→17:14)
[2021-08-30 12:00] VITALS: BP 153/71
[2021-08-30] MEDS ORDERED: VANCOMYCIN LEVEL IV ONE (13:30)
--- NOTE | 2021-08-30 14:27 | NUR ---
Spoke to vanco dosing Pharmacist and cleared the 1 Addendum: 08/30/21 at 1428 by Behzad Lazo RN 1400 dosing and okay to hang at this time, will decrease next dose in the future.
--- NOTE | 2021-08-30 18:26 | NUR ---
Problems reprioritized. Patient report given, questions answered & plan of care reviewed with Elisa MARTIN.
[2021-08-30] MEDS: duloxetine 30mg CAPSULE.DR PO SCH (20:20)
[2021-08-30] MEDS: pregabalin 75mg capsule PO SCH (20:20)
[2021-08-30] MEDS: vancomycin inj. 750 MG in normal saline 250ml IV soln 250 ML IV SCH (23:00)
[2021-08-31] MEDS: piperacillin/tazo 3.375gm/50ml 50 ML IV SCH ×3 (00:50→16:04)
[2021-08-31] MEDS: HYDROcodone/acetaminophen 10/325mg tab PO PRN ×4 (00:54→20:58)
[2021-08-31] MEDS: normal saline 1000ml 1,000 ML IV SCH ×3 (03:15→21:09)
[2021-08-31] MEDS: HYDROmorphone inj. 0.5 MG/0.5 ML DISP.SYRIN IV PRN ×3 (03:27→23:29)
--- NOTE | 2021-08-31 06:30 | NUR ---
Patient in room MOE 345. I have received report from MAIRO Pérez and had the opportunity to ask questions and assume patient care.
[2021-08-31 07:00] VITALS: BP 99/60
[2021-08-31 07:11] LABS: BASOPHILS # (AUTO) 0.1 X10'3 (0-0.2); BASOPHILS % (AUTO) 0.9 % (0-1); EOSINOPHILS # (AUTO) 0.4 X10'3 (0-0.9); EOSINOPHILS % (AUTO) 5.5 % (0-6); HEMATOCRIT 30.9 % (35.0-45.0); HEMOGLOBIN 10.1 g/dl (12.0-16.0); LYMPHOCYTES # (AUTO) 1.8 X10'3 (1.1-4.8); LYMPHOCYTES % (AUTO) 28.6 % (21-51); MEAN CORPUSCULAR HEMOGLOBIN 23.6 PG (27.0-31.0); MEAN CORPUSCULAR HGB CONC 32.7 g/dL (33.0-36.5); MEAN CORPUSCULAR VOLUME 72.3 FL (78-98); MEAN PLATELET VOLUME 7.7 FL (7.4-10.4); MONOCYTES # (AUTO) 0.4 X10'3 (0-0.9); MONOCYTES % (AUTO) 6.4 % (2-12); NEUTROPHILS # (AUTO) 3.8 X10'3 (1.8-7.7); NEUTROPHILS % (AUTO) 58.6 % (42-75); PLATELET COUNT 437 X10'3 (140-440); RED BLOOD COUNT 4.27 X10'6 (4.20-5.60); RED CELL DISTRIBUTION WIDTH 16.1 % (11.5-14.5); WHITE BLOOD COUNT 6.4 X10'3 (4.5-11.0)
[2021-08-31] MEDS: vancomycin inj. 750 MG in normal saline 250ml IV soln 250 ML IV SCH ×3 (07:26→23:29)
[2021-08-31 07:32] LABS: ALANINE AMINOTRANSFERASE 11 U/L (12-78); ALBUMIN 2.7 G/DL (3.4-5.0); ALBUMIN/GLOBULIN RATIO 0.8 (1.1-1.5); ALKALINE PHOSPHATASE 94 IU/L (46-116); ANION GAP 3 (8-16); ASPARTATE AMINO TRANSFERASE 10 U/L (10-37); BILIRUBIN,TOTAL 0.3 MG/DL (0.1-1.0); BLOOD UREA NITROGEN 10 MG/DL (7-18); BUN/CREATININE RATIO 16.9 (6.6-38.0); CALCIUM 9.2 MG/DL (8.5-10.1); CHLORIDE 109 MMOL/L (99-107); CREATININE 0.59 MG/DL (0.40-0.90); GLUCOSE 117 MG/DL (70-104); MAGNESIUM 1.8 MG/DL (1.5-2.4); POTASSIUM 3.5 MMOL/L (3.5-5.1); SODIUM 140 MMOL/L (135-145); TOTAL CARBON DIOXIDE 28.2 MMOL/L (24-32); TOTAL PROTEIN 6.2 G/DL (6.4-8.2); eGFR > 90 ML/MIN
[2021-08-31] MEDS: docusate sod 100mg capsule PO SCH ×2 (08:00→20:00)
[2021-08-31] MEDS: K and/or MAG REPLACEMENT MC SCH ×2 (08:00→20:00)
[2021-08-31] MEDS: lactobacillus rhamnosus 10,000 MMU CELLS/CAPSULE PO SCH ×2 (08:19→20:52)
[2021-08-31] MEDS: levoTHYROXINE 75mcg tablet PO SCH (08:19)
[2021-08-31] MEDS: pantoprazole 40mg Tablet.DR PO SCH (08:19)
[2021-08-31 11:00] VITALS: BP 99/59
--- NOTE | 2021-08-31 16:05 | NUR ---
Trs pt via bed to 351 for single room isolation. All belongings moved.
[2021-08-31 18:00] VITALS: BP 123/71
--- NOTE | 2021-08-31 18:27 | NUR ---
Problems reprioritized. Patient report given, questions answered & plan of care reviewed with MARIO Mcbride.
--- NOTE | 2021-08-31 18:58 | NUR ---
Patient in room MOE 351. I have received report from JULEE MARTIN and had the opportunity to ask questions and assume patient care.
[2021-08-31] MEDS: duloxetine 30mg CAPSULE.DR PO SCH (20:52)
[2021-08-31] MEDS: pregabalin 75mg capsule PO SCH (20:52)
[2021-08-31] MEDS ORDERED: VANCOMYCIN LEVEL IV ONE (22:30)
[2021-09-01 00:22] VITALS: BP 113/72
[2021-09-01] MEDS: piperacillin/tazo 3.375gm/50ml 50 ML IV SCH ×4 (00:48→17:14)
[2021-09-01] MEDS: HYDROcodone/acetaminophen 10/325mg tab PO PRN ×4 (04:17→22:11)
--- NOTE | 2021-09-01 06:29 | NUR ---
Problems reprioritized. Patient report given, questions answered & plan of care reviewed with ANABEL MARTIN.
[2021-09-01 07:08] LABS: ALANINE AMINOTRANSFERASE 9 U/L (12-78); ALBUMIN 2.8 G/DL (3.4-5.0); ALBUMIN/GLOBULIN RATIO 0.8 (1.1-1.5); ALKALINE PHOSPHATASE 96 IU/L (46-116); ANION GAP 4 (8-16); ASPARTATE AMINO TRANSFERASE 8 U/L (10-37); BILIRUBIN,TOTAL 0.2 MG/DL (0.1-1.0); BLOOD UREA NITROGEN 9 MG/DL (7-18); BUN/CREATININE RATIO 14.1 (6.6-38.0); CALCIUM 9.2 MG/DL (8.5-10.1); CHLORIDE 111 MMOL/L (99-107); CREATININE 0.64 MG/DL (0.40-0.90); GLUCOSE 98 MG/DL (70-104); POTASSIUM 3.4 MMOL/L (3.5-5.1); SODIUM 143 MMOL/L (135-145); TOTAL CARBON DIOXIDE 27.9 MMOL/L (24-32); TOTAL PROTEIN 6.3 G/DL (6.4-8.2); eGFR > 90 ML/MIN
[2021-09-01 07:10] LABS: BASOPHILS # (AUTO) 0.1 X10'3 (0-0.2); BASOPHILS % (AUTO) 0.7 % (0-1); EOSINOPHILS # (AUTO) 0.3 X10'3 (0-0.9); EOSINOPHILS % (AUTO) 4.3 % (0-6); HEMATOCRIT 33.5 % (35.0-45.0); HEMOGLOBIN 10.6 g/dl (12.0-16.0); LYMPHOCYTES % (AUTO) 27.7 % (21-51); MEAN CORPUSCULAR HEMOGLOBIN 23.2 PG (27.0-31.0); MEAN CORPUSCULAR HGB CONC 31.5 g/dL (33.0-36.5); MEAN CORPUSCULAR VOLUME 73.8 FL (78-98); MEAN PLATELET VOLUME 7.9 FL (7.4-10.4); MONOCYTES # (AUTO) 0.5 X10'3 (0-0.9); MONOCYTES % (AUTO) 7.5 % (2-12); NEUTROPHILS # (AUTO) 4.4 X10'3 (1.8-7.7); NEUTROPHILS % (AUTO) 59.8 % (42-75); PLATELET COUNT 453 X10'3 (140-440); RED BLOOD COUNT 4.54 X10'6 (4.20-5.60); RED CELL DISTRIBUTION WIDTH 16.2 % (11.5-14.5); WHITE BLOOD COUNT 7.3 X10'3 (4.5-11.0)
[2021-09-01] MEDS: vancomycin inj. 750 MG in normal saline 250ml IV soln 250 ML IV SCH ×3 (07:19→22:10)
[2021-09-01] MEDS: pantoprazole 40mg Tablet.DR PO SCH (07:20)
[2021-09-01] MEDS: lactobacillus rhamnosus 10,000 MMU CELLS/CAPSULE PO SCH ×2 (07:20→19:39)
[2021-09-01] MEDS: HYDROmorphone inj. 0.5 MG/0.5 ML DISP.SYRIN IV PRN ×3 (07:21→19:41)
[2021-09-01] MEDS: levoTHYROXINE 75mcg tablet PO SCH (07:21)
[2021-09-01] MEDS: docusate sod 100mg capsule PO SCH ×2 (07:46→20:00)
[2021-09-01 08:00] VITALS: BP 126/85
[2021-09-01] MEDS: K and/or MAG REPLACEMENT MC SCH ×3 (08:00→20:00)
[2021-09-01] MEDS ORDERED: magnesium Cl slow-release 64mg tablet PO PRN (08:45)
[2021-09-01] MEDS ORDERED: potassium Cl 20 mEq SR tablet PO PRN (08:45)
[2021-09-01] MEDS ORDERED: potassium Cl 40MEQ/1/2NS 520ml 520 ML IV PRN (08:45)
[2021-09-01] MEDS ORDERED: magnesium 4gm in 100ml NS 100 ML IV PRN (08:45)
--- NOTE | 2021-09-01 10:43 | NUR ---
Dr. Davis aware of patients lab, TSH 26.13. Dr. Davis will review labs.
[2021-09-01] MEDS: normal saline 1000ml 1,000 ML IV SCH (10:46)
[2021-09-01 11:00] VITALS: BP 122/70
[2021-09-01] MEDS: potassium Cl 20 mEq SR tablet PO PRN ×3 (11:38→19:39)
--- NOTE | 2021-09-01 16:29 | NUR ---
Student documentation: I have reviewed all interventions, assessments performed and documented by Mukesh ORDAZ of [facility]. Student Medication Administration: For all medication-pass' in the time frame of -884, all medication were reviewed, dispensed, administered and documented per hospital policy by Mukesh ORDAZ of [facility].
[2021-09-01 18:00] VITALS: BP 116/67
--- NOTE | 2021-09-01 18:21 | NUR ---
Patient in room MOE 351. I have received report from Jo MARTIN and Mukesh ORDAZ and had the opportunity to ask questions and assume patient care.
[2021-09-01] MEDS: duloxetine 30mg CAPSULE.DR PO SCH (22:10)
[2021-09-01] MEDS: pregabalin 75mg capsule PO SCH (22:10)
[2021-09-02] MEDS: piperacillin/tazo 3.375gm/50ml 50 ML IV SCH ×2 (00:04→07:08)
[2021-09-02] MEDS: HYDROmorphone inj. 0.5 MG/0.5 ML DISP.SYRIN IV PRN ×5 (00:05→20:52)
[2021-09-02] MEDS: normal saline 1000ml 1,000 ML IV SCH ×3 (00:06→23:03)
[2021-09-02 00:09] VITALS: BP 115/72
[2021-09-02] MEDS: HYDROcodone/acetaminophen 10/325mg tab PO PRN ×5 (02:49→22:49)
--- NOTE | 2021-09-02 06:29 | NUR ---
Received report on pt in 351A from Ankit MARTIN. Had the opportunity to ask questions and assumed pt care.
[2021-09-02 06:58] LABS: BASOPHILS % (AUTO) 0.7 % (0-1); EOSINOPHILS # (AUTO) 0.4 X10'3 (0-0.9); EOSINOPHILS % (AUTO) 4.6 % (0-6); HEMATOCRIT 30.2 % (35.0-45.0); HEMOGLOBIN 9.7 g/dl (12.0-16.0); LYMPHOCYTES # (AUTO) 1.9 X10'3 (1.1-4.8); LYMPHOCYTES % (AUTO) 24.6 % (21-51); MEAN CORPUSCULAR HEMOGLOBIN 23.4 PG (27.0-31.0); MEAN CORPUSCULAR HGB CONC 32.1 g/dL (33.0-36.5); MEAN CORPUSCULAR VOLUME 72.8 FL (78-98); MEAN PLATELET VOLUME 7.9 FL (7.4-10.4); MONOCYTES # (AUTO) 0.5 X10'3 (0-0.9); MONOCYTES % (AUTO) 6.6 % (2-12); NEUTROPHILS # (AUTO) 4.8 X10'3 (1.8-7.7); NEUTROPHILS % (AUTO) 63.5 % (42-75); PLATELET COUNT 430 X10'3 (140-440); RED BLOOD COUNT 4.16 X10'6 (4.20-5.60); RED CELL DISTRIBUTION WIDTH 15.9 % (11.5-14.5); WHITE BLOOD COUNT 7.6 X10'3 (4.5-11.0)
[2021-09-02] MEDS: vancomycin inj. 750 MG in normal saline 250ml IV soln 250 ML IV SCH ×3 (07:08→22:48)
[2021-09-02] MEDS: pantoprazole 40mg Tablet.DR PO SCH (07:09)
[2021-09-02] MEDS: levoTHYROXINE 75mcg tablet PO SCH (07:09)
[2021-09-02] MEDS: lactobacillus rhamnosus 10,000 MMU CELLS/CAPSULE PO SCH ×2 (07:09→20:49)
[2021-09-02] MEDS: docusate sod 100mg capsule PO SCH ×2 (07:10→20:00)
[2021-09-02 07:17] LABS: ALANINE AMINOTRANSFERASE 10 U/L (12-78); ALBUMIN 2.6 G/DL (3.4-5.0); ALBUMIN/GLOBULIN RATIO 0.8 (1.1-1.5); ALKALINE PHOSPHATASE 79 IU/L (46-116); ANION GAP 7 (8-16); ASPARTATE AMINO TRANSFERASE 9 U/L (10-37); BILIRUBIN,TOTAL 0.2 MG/DL (0.1-1.0); BLOOD UREA NITROGEN 13 MG/DL (7-18); BUN/CREATININE RATIO 23.2 (6.6-38.0); CHLORIDE 111 MMOL/L (99-107); CREATININE 0.56 MG/DL (0.40-0.90); GLUCOSE 97 MG/DL (70-104); MAGNESIUM 2.1 MG/DL (1.5-2.4); POTASSIUM 4.3 MMOL/L (3.5-5.1); SODIUM 145 MMOL/L (135-145); TOTAL CARBON DIOXIDE 26.8 MMOL/L (24-32); TOTAL PROTEIN 5.9 G/DL (6.4-8.2); eGFR > 90 ML/MIN
[2021-09-02 08:00] VITALS: BP 109/70
[2021-09-02] MEDS: K and/or MAG REPLACEMENT MC SCH ×4 (08:00→20:00)
[2021-09-02 11:00] VITALS: BP 120/77
--- NOTE | 2021-09-02 13:54 | NUR ---
Initial: Pt admitted w/ infection of right leg stump per EMR, had surgical wound vac placement 08/29. Pt able to eat well on Regular diet, mostly 100% of meals meeting needs. LBM 08/31. No nutrition intervention implemented at this time, will continue to monitor and make recommendations as appropriate. Recs: 1. Continue Regular diet as tolerated; monitor need for increased protein 2. Bowel care per rx 3. Weekly wts Addendum: 09/02/21 at [address] Amended: Links added.
[2021-09-02 20:00] VITALS: BP 136/67
[2021-09-02] MEDS: pregabalin 75mg capsule PO SCH (20:50)
[2021-09-02] MEDS: duloxetine 30mg CAPSULE.DR PO SCH (20:50)
[2021-09-03] VITALS: BP 142/79
[2021-09-03] MEDS: HYDROmorphone inj. 0.5 MG/0.5 ML DISP.SYRIN IV PRN ×3 (01:07→20:54)
[2021-09-03] MEDS: HYDROcodone/acetaminophen 10/325mg tab PO PRN ×4 (04:14→23:20)
--- NOTE | 2021-09-03 06:52 | NUR ---
Student documentation: I have reviewed and agree with all interventions, assessments performed and documented by Fabiola Student Nurse.
--- NOTE | 2021-09-03 06:53 | NUR ---
Problems reprioritized. Patient report given, questions answered & plan of care reviewed with MARIO Corona.
--- NOTE | 2021-09-03 06:57 | NUR ---
Patient in room MOE 351. I have received report from Guerda MARTIN and had the opportunity to ask questions and assume patient care.
--- NOTE | 2021-09-03 07:00 | NUR ---
Patient in room MOE 351. I have received report from Guerda MARTIN and had the opportunity to ask questions and assume patient care.
[2021-09-03 08:00] VITALS: BP 117/67
[2021-09-03] MEDS: K and/or MAG REPLACEMENT MC SCH ×4 (08:00→20:00)
[2021-09-03] MEDS: docusate sod 100mg capsule PO SCH ×2 (08:00→20:00)
[2021-09-03 09:02] LABS: BASOPHILS # (AUTO) 0.1 X10'3 (0-0.2); BASOPHILS % (AUTO) 0.7 % (0-1); EOSINOPHILS # (AUTO) 0.3 X10'3 (0-0.9); HEMATOCRIT 32.5 % (35.0-45.0); HEMOGLOBIN 10.4 g/dl (12.0-16.0); LYMPHOCYTES # (AUTO) 1.8 X10'3 (1.1-4.8); LYMPHOCYTES % (AUTO) 21.9 % (21-51); MEAN CORPUSCULAR HEMOGLOBIN 23.2 PG (27.0-31.0); MEAN CORPUSCULAR HGB CONC 32.1 g/dL (33.0-36.5); MEAN CORPUSCULAR VOLUME 72.2 FL (78-98); MEAN PLATELET VOLUME 7.6 FL (7.4-10.4); MONOCYTES # (AUTO) 0.4 X10'3 (0-0.9); MONOCYTES % (AUTO) 4.6 % (2-12); NEUTROPHILS # (AUTO) 5.7 X10'3 (1.8-7.7); NEUTROPHILS % (AUTO) 68.8 % (42-75); PLATELET COUNT 431 X10'3 (140-440); RED CELL DISTRIBUTION WIDTH 16.3 % (11.5-14.5); WHITE BLOOD COUNT 8.3 X10'3 (4.5-11.0)
[2021-09-03 09:06] LABS: ALANINE AMINOTRANSFERASE 9 U/L (12-78); ALBUMIN 2.8 G/DL (3.4-5.0); ALBUMIN/GLOBULIN RATIO 0.8 (1.1-1.5); ALKALINE PHOSPHATASE 85 IU/L (46-116); ANION GAP 10 (8-16); ASPARTATE AMINO TRANSFERASE 11 U/L (10-37); BILIRUBIN,TOTAL 0.2 MG/DL (0.1-1.0); BLOOD UREA NITROGEN 11 MG/DL (7-18); BUN/CREATININE RATIO 20.8 (6.6-38.0); CALCIUM 9.1 MG/DL (8.5-10.1); CHLORIDE 108 MMOL/L (99-107); CREATININE 0.53 MG/DL (0.40-0.90); GLUCOSE 121 MG/DL (70-104); POTASSIUM 3.8 MMOL/L (3.5-5.1); SODIUM 144 MMOL/L (135-145); TOTAL CARBON DIOXIDE 25.6 MMOL/L (24-32); TOTAL PROTEIN 6.4 G/DL (6.4-8.2); eGFR > 90 ML/MIN
--- NOTE | 2021-09-03 09:30 | NUR ---
Student documentation: I have reviewed and agree with all interventions, assessments performed and documented by Slava Crawley college student.
[2021-09-03] MEDS: normal saline 1000ml 1,000 ML IV SCH ×3 (09:34→21:26)
[2021-09-03] MEDS: vancomycin inj. 750 MG in normal saline 250ml IV soln 250 ML IV SCH ×3 (09:34→23:22)
[2021-09-03] MEDS: pantoprazole 40mg Tablet.DR PO SCH (09:35)
[2021-09-03] MEDS: lactobacillus rhamnosus 10,000 MMU CELLS/CAPSULE PO SCH ×2 (09:35→21:22)
[2021-09-03] MEDS: levoTHYROXINE 75mcg tablet PO SCH (09:36)
[2021-09-03 12:00] VITALS: BP 135/85
--- NOTE | 2021-09-03 18:39 | NUR ---
Problems reprioritized. Patient report given, questions answered & plan of care reviewed with Jaskaran MARTIN and Martina MARTIN.
[2021-09-03 20:00] VITALS: BP 130/82
[2021-09-03] MEDS: pregabalin 75mg capsule PO SCH (21:22)
[2021-09-03] MEDS: duloxetine 30mg CAPSULE.DR PO SCH (21:22)
[2021-09-04] VITALS: BP 138/79
[2021-09-04] MEDS: HYDROmorphone inj. 0.5 MG/0.5 ML DISP.SYRIN IV PRN ×2 (01:29→10:24)
[2021-09-04] MEDS: HYDROcodone/acetaminophen 10/325mg tab PO PRN ×4 (04:28→22:03)
[2021-09-04 06:14] LABS: BASOPHILS # (AUTO) 0.1 X10'3 (0-0.2); BASOPHILS % (AUTO) 0.7 % (0-1); EOSINOPHILS # (AUTO) 0.3 X10'3 (0-0.9); EOSINOPHILS % (AUTO) 3.6 % (0-6); HEMATOCRIT 32.7 % (35.0-45.0); HEMOGLOBIN 10.1 g/dl (12.0-16.0); LYMPHOCYTES # (AUTO) 2.1 X10'3 (1.1-4.8); LYMPHOCYTES % (AUTO) 25.5 % (21-51); MEAN CORPUSCULAR HEMOGLOBIN 22.8 PG (27.0-31.0); MEAN CORPUSCULAR HGB CONC 30.9 g/dL (33.0-36.5); MEAN CORPUSCULAR VOLUME 73.7 FL (78-98); MEAN PLATELET VOLUME 8.2 FL (7.4-10.4); MONOCYTES # (AUTO) 0.4 X10'3 (0-0.9); MONOCYTES % (AUTO) 5.4 % (2-12); NEUTROPHILS # (AUTO) 5.3 X10'3 (1.8-7.7); NEUTROPHILS % (AUTO) 64.8 % (42-75); PLATELET COUNT 402 X10'3 (140-440); RED BLOOD COUNT 4.44 X10'6 (4.20-5.60); RED CELL DISTRIBUTION WIDTH 16.1 % (11.5-14.5); WHITE BLOOD COUNT 8.2 X10'3 (4.5-11.0)
--- NOTE | 2021-09-04 06:28 | NUR ---
Patient in room MOE 351. I have received report from MARIO Corona and had the opportunity to ask questions and assume patient care. I agree with the assessments, documentation, and Report given by MARIO Macksaw tailer Nurse Addendum: 09/04/21 at 0633 by Jaskaran Shafer RN I have given report report from MARIO Vasquez and had the opportunity to ask questions and assume patient care. I agree with the assessments, documentation, and Report given by MARIO Macksaw tailer Nurse
[2021-09-04 06:36] LABS: ALANINE AMINOTRANSFERASE 13 U/L (12-78); ALBUMIN 2.6 G/DL (3.4-5.0); ALBUMIN/GLOBULIN RATIO 0.8 (1.1-1.5); ALKALINE PHOSPHATASE 81 IU/L (46-116); ANION GAP 6 (8-16); ASPARTATE AMINO TRANSFERASE 11 U/L (10-37); BILIRUBIN,TOTAL 0.2 MG/DL (0.1-1.0); BLOOD UREA NITROGEN 12 MG/DL (7-18); BUN/CREATININE RATIO 22.6 (6.6-38.0); CHLORIDE 112 MMOL/L (99-107); CREATININE 0.53 MG/DL (0.40-0.90); GLUCOSE 93 MG/DL (70-104); POTASSIUM 3.5 MMOL/L (3.5-5.1); SODIUM 145 MMOL/L (135-145); TOTAL CARBON DIOXIDE 26.8 MMOL/L (24-32); TOTAL PROTEIN 5.9 G/DL (6.4-8.2); eGFR > 90 ML/MIN
--- NOTE | 2021-09-04 07:06 | NUR ---
Patient in room MOE 351. I have received report from Jaskaran MARTIN and had the opportunity to ask questions and assume patient care.
[2021-09-04 08:00] VITALS: BP 140/72
[2021-09-04] MEDS: K and/or MAG REPLACEMENT MC SCH ×4 (08:00→20:00)
[2021-09-04] MEDS: docusate sod 100mg capsule PO SCH ×2 (08:00→20:00)
[2021-09-04] MEDS: lactobacillus rhamnosus 10,000 MMU CELLS/CAPSULE PO SCH ×2 (08:25→21:13)
[2021-09-04] MEDS: vancomycin inj. 750 MG in normal saline 250ml IV soln 250 ML IV SCH ×2 (08:25→15:31)
[2021-09-04] MEDS: levoTHYROXINE 75mcg tablet PO SCH (08:26)
[2021-09-04] MEDS: pantoprazole 40mg Tablet.DR PO SCH (08:26)
[2021-09-04] MEDS: normal saline 1000ml 1,000 ML IV SCH ×2 (08:26→17:15)
[2021-09-04 11:00] VITALS: BP 112/71
--- NOTE | 2021-09-04 18:36 | NUR ---
Problems reprioritized. Patient report given, questions answered & plan of care reviewed with Ankit MARTIN. Addendum: 09/04/21 at 1838 by Chloe Anthony RN Wrong nurse.
--- NOTE | 2021-09-04 19:02 | NUR ---
Problems reprioritized. Patient report given, questions answered & plan of care reviewed with Barbara MARTIN Traveler.
[2021-09-04 20:00] VITALS: BP 120/71
[2021-09-04] MEDS: duloxetine 30mg CAPSULE.DR PO SCH (21:13)
[2021-09-04] MEDS: pregabalin 75mg capsule PO SCH (21:14)
[2021-09-04] MEDS: temazepam 15mg capsule PO PRN (21:15)
[2021-09-05] VITALS: BP 131/82
[2021-09-05] MEDS: HYDROcodone/acetaminophen 10/325mg tab PO PRN ×4 (01:12→21:57)
[2021-09-05] MEDS: vancomycin inj. 750 MG in normal saline 250ml IV soln 250 ML IV SCH ×3 (01:12→15:40)
[2021-09-05] MEDS: normal saline 1000ml 1,000 ML IV SCH ×3 (03:15→23:15)
[2021-09-05] MEDS ORDERED: VANCOMYCIN LEVEL IV ONE (06:30)
[2021-09-05 07:00] VITALS: BP 118/66
--- NOTE | 2021-09-05 07:27 | NUR ---
Patient in room MOE 351. I have received report from Gera MARTIN and had the opportunity to ask questions and assume patient care.
[2021-09-05] MEDS: K and/or MAG REPLACEMENT MC SCH ×5 (08:00→20:00)
[2021-09-05] MEDS: docusate sod 100mg capsule PO SCH ×2 (08:00→20:00)
[2021-09-05 08:49] LABS: BASOPHILS # (AUTO) 0.1 X10'3 (0-0.2); EOSINOPHILS # (AUTO) 0.3 X10'3 (0-0.9); EOSINOPHILS % (AUTO) 4.1 % (0-6); HEMATOCRIT 32.6 % (35.0-45.0); HEMOGLOBIN 10.3 g/dl (12.0-16.0); LYMPHOCYTES # (AUTO) 2.2 X10'3 (1.1-4.8); LYMPHOCYTES % (AUTO) 27.1 % (21-51); MEAN CORPUSCULAR HEMOGLOBIN 22.9 PG (27.0-31.0); MEAN CORPUSCULAR HGB CONC 31.6 g/dL (33.0-36.5); MEAN CORPUSCULAR VOLUME 72.6 FL (78-98); MEAN PLATELET VOLUME 8.2 FL (7.4-10.4); MONOCYTES # (AUTO) 0.5 X10'3 (0-0.9); MONOCYTES % (AUTO) 6.6 % (2-12); NEUTROPHILS % (AUTO) 61.2 % (42-75); PLATELET COUNT 410 X10'3 (140-440); RED BLOOD COUNT 4.49 X10'6 (4.20-5.60); WHITE BLOOD COUNT 8.2 X10'3 (4.5-11.0)
[2021-09-05 09:07] LABS: ALANINE AMINOTRANSFERASE 10 U/L (12-78); ALBUMIN 2.9 G/DL (3.4-5.0); ALBUMIN/GLOBULIN RATIO 0.8 (1.1-1.5); ALKALINE PHOSPHATASE 87 IU/L (46-116); ANION GAP 5 (8-16); ASPARTATE AMINO TRANSFERASE 12 U/L (10-37); BILIRUBIN,TOTAL 0.2 MG/DL (0.1-1.0); BLOOD UREA NITROGEN 11 MG/DL (7-18); BUN/CREATININE RATIO 21.6 (6.6-38.0); CALCIUM 9.2 MG/DL (8.5-10.1); CHLORIDE 109 MMOL/L (99-107); CREATININE 0.51 MG/DL (0.40-0.90); GLUCOSE 82 MG/DL (70-104); POTASSIUM 3.3 MMOL/L (3.5-5.1); SODIUM 143 MMOL/L (135-145); TOTAL CARBON DIOXIDE 29.4 MMOL/L (24-32); TOTAL PROTEIN 6.5 G/DL (6.4-8.2); eGFR > 90 ML/MIN
[2021-09-05] MEDS: pantoprazole 40mg Tablet.DR PO SCH (09:11)
[2021-09-05] MEDS: levoTHYROXINE 75mcg tablet PO SCH (09:11)
[2021-09-05] MEDS: lactobacillus rhamnosus 10,000 MMU CELLS/CAPSULE PO SCH ×2 (09:12→21:55)
[2021-09-05 09:15] LABS: VANCOMYCIN,TROUGH 20.1 UG/ML (6.0-14.0)
[2021-09-05] MEDS: HYDROmorphone inj. 0.5 MG/0.5 ML DISP.SYRIN IV PRN (09:29)
--- NOTE | 2021-09-05 10:17 | NUR ---
Pharmacist notified patients Alyssa tr. 20.1, per pharmacist ok to run am dose
[2021-09-05 11:00] VITALS: BP 109/82
[2021-09-05] MEDS ORDERED: potassium Cl 40MEQ/1/2NS 520ml 520 ML IV PRN (14:25)
[2021-09-05] MEDS ORDERED: magnesium Cl slow-release 64mg tablet PO PRN (14:25)
[2021-09-05] MEDS ORDERED: magnesium 4gm in 100ml NS 100 ML IV PRN (14:25)
[2021-09-05] MEDS ORDERED: potassium Cl 20 mEq SR tablet PO PRN (14:25)
--- NOTE | 2021-09-05 19:07 | NUR ---
Problems reprioritized. Patient report given, questions answered & plan of care reviewed with Gera MARTIN.
[2021-09-05 20:00] VITALS: BP 113/58
[2021-09-05] MEDS: temazepam 15mg capsule PO PRN (21:56)
[2021-09-05] MEDS: duloxetine 30mg CAPSULE.DR PO SCH (21:56)
[2021-09-05] MEDS: pregabalin 75mg capsule PO SCH (21:56)
[2021-09-05] MEDS: potassium Cl 20 mEq SR tablet PO PRN (22:06)
[2021-09-06] VITALS: BP 121/73
[2021-09-06] MEDS: vancomycin inj. 750 MG in normal saline 250ml IV soln 250 ML IV SCH ×4 (01:13→23:50)
[2021-09-06] MEDS: potassium Cl 20 mEq SR tablet PO PRN ×2 (01:13→06:03)
[2021-09-06] MEDS: HYDROcodone/acetaminophen 10/325mg tab PO PRN ×4 (04:18→21:40)
[2021-09-06 07:37] VITALS: BP 117/71
[2021-09-06] MEDS: K and/or MAG REPLACEMENT MC SCH ×6 (07:49→20:00)
[2021-09-06] MEDS: pantoprazole 40mg Tablet.DR PO SCH (07:49)
[2021-09-06] MEDS: levoTHYROXINE 75mcg tablet PO SCH (07:49)
[2021-09-06] MEDS: lactobacillus rhamnosus 10,000 MMU CELLS/CAPSULE PO SCH ×2 (07:49→21:41)
[2021-09-06] MEDS: docusate sod 100mg capsule PO SCH ×2 (07:50→20:00)
[2021-09-06 08:28] LABS: BASOPHILS # (AUTO) 0.1 X10'3 (0-0.2); EOSINOPHILS # (AUTO) 0.2 X10'3 (0-0.9); EOSINOPHILS % (AUTO) 3.1 % (0-6); HEMOGLOBIN 10.9 g/dl (12.0-16.0); LYMPHOCYTES # (AUTO) 1.8 X10'3 (1.1-4.8); LYMPHOCYTES % (AUTO) 23.2 % (21-51); MEAN CORPUSCULAR HEMOGLOBIN 23.1 PG (27.0-31.0); MEAN CORPUSCULAR HGB CONC 31.9 g/dL (33.0-36.5); MEAN CORPUSCULAR VOLUME 72.5 FL (78-98); MEAN PLATELET VOLUME 8.2 FL (7.4-10.4); MONOCYTES # (AUTO) 0.5 X10'3 (0-0.9); MONOCYTES % (AUTO) 5.7 % (2-12); NEUTROPHILS # (AUTO) 5.3 X10'3 (1.8-7.7); PLATELET COUNT 433 X10'3 (140-440); RED BLOOD COUNT 4.69 X10'6 (4.20-5.60); RED CELL DISTRIBUTION WIDTH 16.2 % (11.5-14.5); WHITE BLOOD COUNT 7.9 X10'3 (4.5-11.0)
[2021-09-06 08:42] LABS: ALANINE AMINOTRANSFERASE 10 U/L (12-78); ALBUMIN 3.2 G/DL (3.4-5.0); ALBUMIN/GLOBULIN RATIO 0.9 (1.1-1.5); ALKALINE PHOSPHATASE 97 IU/L (46-116); ANION GAP 6 (8-16); ASPARTATE AMINO TRANSFERASE 14 U/L (10-37); BILIRUBIN,TOTAL 0.3 MG/DL (0.1-1.0); BLOOD UREA NITROGEN 10 MG/DL (7-18); BUN/CREATININE RATIO 20.4 (6.6-38.0); CALCIUM 9.5 MG/DL (8.5-10.1); CHLORIDE 109 MMOL/L (99-107); CREATININE 0.49 MG/DL (0.40-0.90); GLUCOSE 89 MG/DL (70-104); POTASSIUM 3.9 MMOL/L (3.5-5.1); SODIUM 144 MMOL/L (135-145); TOTAL PROTEIN 6.9 G/DL (6.4-8.2); eGFR > 90 ML/MIN
[2021-09-06] MEDS: HYDROmorphone inj. 0.5 MG/0.5 ML DISP.SYRIN IV PRN (09:47)
[2021-09-06] MEDS: normal saline 1000ml 1,000 ML IV SCH ×2 (10:10→19:15)
[2021-09-06 11:00] VITALS: BP 111/71
--- NOTE | 2021-09-06 12:59 | NUR ---
PAGER ID: [phone] MESSAGE: YASMIN BELL 351 RED YEASTY RASH IN GROIN FOLDS. MAY I HAVE NYSTATIN ORDER? THANK YOU LORENZO [phone]
--- NOTE | 2021-09-06 18:57 | NUR ---
GAVE REPORT TO RIC MARTIN.
[2021-09-06 19:00] VITALS: BP 110/65
[2021-09-06] MEDS: pregabalin 75mg capsule PO SCH (21:40)
[2021-09-06] MEDS: duloxetine 30mg CAPSULE.DR PO SCH (21:41)
[2021-09-06] MEDS: temazepam 15mg capsule PO PRN (21:42)
[2021-09-07] VITALS: BP 110/65
[2021-09-07] MEDS: HYDROcodone/acetaminophen 10/325mg tab PO PRN ×5 (01:57→22:16)
[2021-09-07 05:32] LABS: BASOPHILS # (AUTO) 0.1 X10'3 (0-0.2); BASOPHILS % (AUTO) 1.9 % (0-1); EOSINOPHILS # (AUTO) 0.2 X10'3 (0-0.9); EOSINOPHILS % (AUTO) 2.9 % (0-6); HEMATOCRIT 32.6 % (35.0-45.0); HEMOGLOBIN 10.2 g/dl (12.0-16.0); LYMPHOCYTES # (AUTO) 1.9 X10'3 (1.1-4.8); LYMPHOCYTES % (AUTO) 26.1 % (21-51); MEAN CORPUSCULAR HEMOGLOBIN 22.8 PG (27.0-31.0); MEAN CORPUSCULAR HGB CONC 31.4 g/dL (33.0-36.5); MEAN CORPUSCULAR VOLUME 72.6 FL (78-98); MEAN PLATELET VOLUME 8.3 FL (7.4-10.4); MONOCYTES # (AUTO) 0.5 X10'3 (0-0.9); MONOCYTES % (AUTO) 6.3 % (2-12); NEUTROPHILS # (AUTO) 4.6 X10'3 (1.8-7.7); NEUTROPHILS % (AUTO) 62.8 % (42-75); PLATELET COUNT 382 X10'3 (140-440); RED BLOOD COUNT 4.49 X10'6 (4.20-5.60); RED CELL DISTRIBUTION WIDTH 16.1 % (11.5-14.5); WHITE BLOOD COUNT 7.4 X10'3 (4.5-11.0)
[2021-09-07 05:53] LABS: ALANINE AMINOTRANSFERASE 15 U/L (12-78); ALBUMIN 2.9 G/DL (3.4-5.0); ALBUMIN/GLOBULIN RATIO 0.8 (1.1-1.5); ALKALINE PHOSPHATASE 86 IU/L (46-116); ANION GAP 7 (8-16); ASPARTATE AMINO TRANSFERASE 14 U/L (10-37); BILIRUBIN,TOTAL 0.3 MG/DL (0.1-1.0); BLOOD UREA NITROGEN 13 MG/DL (7-18); BUN/CREATININE RATIO 23.6 (6.6-38.0); CALCIUM 8.8 MG/DL (8.5-10.1); CHLORIDE 106 MMOL/L (99-107); CREATININE 0.55 MG/DL (0.40-0.90); GLUCOSE 97 MG/DL (70-104); POTASSIUM 4.2 MMOL/L (3.5-5.1); SODIUM 142 MMOL/L (135-145); TOTAL CARBON DIOXIDE 28.6 MMOL/L (24-32); TOTAL PROTEIN 6.4 G/DL (6.4-8.2); eGFR > 90 ML/MIN
--- NOTE | 2021-09-07 06:25 | NUR ---
Patient in room MOE 351. I have received report from RIC MARTIN and had the opportunity to ask questions and assume patient care.
--- NOTE | 2021-09-07 06:30 | NUR ---
Patient in room MOE 351. I have received report from LINDA MARTIN and had the opportunity to ask questions and assume patient care. Addendum: 09/07/21 at 0631 by Stefanie Tucker RN DISREGARD, INCORRECT PATIENT
[2021-09-07] MEDS: HYDROmorphone inj. 0.5 MG/0.5 ML DISP.SYRIN IV PRN (06:52)
[2021-09-07] MEDS: levoTHYROXINE 75mcg tablet PO SCH (07:02)
[2021-09-07] MEDS: vancomycin inj. 750 MG in normal saline 250ml IV soln 250 ML IV SCH ×3 (07:02→22:20)
[2021-09-07] MEDS: lactobacillus rhamnosus 10,000 MMU CELLS/CAPSULE PO SCH ×2 (07:02→22:25)
[2021-09-07] MEDS: pantoprazole 40mg Tablet.DR PO SCH (07:03)
[2021-09-07 07:39] VITALS: BP 110/68
[2021-09-07] MEDS: K and/or MAG REPLACEMENT MC SCH ×6 (07:56→20:00)
[2021-09-07] MEDS: docusate sod 100mg capsule PO SCH ×2 (07:56→20:00)
[2021-09-07 11:00] VITALS: BP 99/63
[2021-09-07] MEDS ORDERED: loperamide 2mg capsule PO PRN (11:55)
[2021-09-07 12:15] VITALS: BP 106/59
[2021-09-07] MEDS: nystatin 15 GM powder TP SCH ×2 (12:48→22:20)
[2021-09-07] MEDS: normal saline 1000ml 1,000 ML IV SCH (15:15)
--- NOTE | 2021-09-07 18:16 | NUR ---
Problems reprioritized. Patient report given, questions answered & plan of care reviewed with Gera MARTIN.
[2021-09-07 20:00] VITALS: BP 112/70
[2021-09-07] MEDS: duloxetine 30mg CAPSULE.DR PO SCH (22:19)
[2021-09-07] MEDS: pregabalin 75mg capsule PO SCH (22:19)
[2021-09-07] MEDS: temazepam 15mg capsule PO PRN (22:19)
[2021-09-08 00:20] VITALS: BP 110/70
[2021-09-08] MEDS: HYDROcodone/acetaminophen 10/325mg tab PO PRN ×4 (02:04→19:59)
[2021-09-08 06:43] LABS: ALANINE AMINOTRANSFERASE 13 U/L (12-78); ALBUMIN 2.7 G/DL (3.4-5.0); ALBUMIN/GLOBULIN RATIO 0.8 (1.1-1.5); ALKALINE PHOSPHATASE 82 IU/L (46-116); ANION GAP 8 (8-16); ASPARTATE AMINO TRANSFERASE 13 U/L (10-37); BILIRUBIN,TOTAL 0.2 MG/DL (0.1-1.0); BLOOD UREA NITROGEN 11 MG/DL (7-18); BUN/CREATININE RATIO 22.4 (6.6-38.0); CALCIUM 8.7 MG/DL (8.5-10.1); CHLORIDE 108 MMOL/L (99-107); CREATININE 0.49 MG/DL (0.40-0.90); GLUCOSE 89 MG/DL (70-104); POTASSIUM 4.1 MMOL/L (3.5-5.1); SODIUM 146 MMOL/L (135-145); TOTAL CARBON DIOXIDE 30.5 MMOL/L (24-32); TOTAL PROTEIN 6.1 G/DL (6.4-8.2); eGFR > 90 ML/MIN
[2021-09-08 06:49] LABS: BASOPHILS # (AUTO) 0.1 X10'3 (0-0.2); BASOPHILS % (AUTO) 1.4 % (0-1); EOSINOPHILS # (AUTO) 0.3 X10'3 (0-0.9); EOSINOPHILS % (AUTO) 3.8 % (0-6); HEMATOCRIT 29.8 % (35.0-45.0); HEMOGLOBIN 9.5 g/dl (12.0-16.0); LYMPHOCYTES # (AUTO) 1.7 X10'3 (1.1-4.8); MEAN CORPUSCULAR HGB CONC 31.8 g/dL (33.0-36.5); MEAN CORPUSCULAR VOLUME 72.4 FL (78-98); MEAN PLATELET VOLUME 8.5 FL (7.4-10.4); MONOCYTES # (AUTO) 0.5 X10'3 (0-0.9); MONOCYTES % (AUTO) 6.7 % (2-12); NEUTROPHILS # (AUTO) 4.4 X10'3 (1.8-7.7); NEUTROPHILS % (AUTO) 64.1 % (42-75); PLATELET COUNT 390 X10'3 (140-440); RED BLOOD COUNT 4.12 X10'6 (4.20-5.60); RED CELL DISTRIBUTION WIDTH 16.4 % (11.5-14.5); WHITE BLOOD COUNT 6.9 X10'3 (4.5-11.0)
[2021-09-08] MEDS: K and/or MAG REPLACEMENT MC SCH ×6 (07:12→20:00)
[2021-09-08] MEDS: docusate sod 100mg capsule PO SCH ×2 (08:00→19:57)
[2021-09-08] MEDS: vancomycin inj. 750 MG in normal saline 250ml IV soln 250 ML IV SCH ×3 (08:03→23:10)
[2021-09-08] MEDS: lactobacillus rhamnosus 10,000 MMU CELLS/CAPSULE PO SCH ×2 (08:03→19:57)
[2021-09-08] MEDS: levoTHYROXINE 75mcg tablet PO SCH (08:04)
[2021-09-08] MEDS: nystatin 15 GM powder TP SCH ×3 (08:05→21:27)
[2021-09-08] MEDS: pantoprazole 40mg Tablet.DR PO SCH (08:05)
[2021-09-08 12:00] VITALS: BP 114/71
[2021-09-08 18:00] VITALS: BP 121/70
[2021-09-08] MEDS: pregabalin 75mg capsule PO SCH (19:57)
[2021-09-08] MEDS: duloxetine 30mg CAPSULE.DR PO SCH (19:57)
[2021-09-09] VITALS: BP 120/71
[2021-09-09] MEDS: HYDROcodone/acetaminophen 10/325mg tab PO PRN ×5 (00:17→21:22)
--- NOTE | 2021-09-09 06:49 | NUR ---
Patient in room MOE 351. I have received report from MARIO TINOCO and had the opportunity to ask questions and assume patient care.
[2021-09-09 08:00] VITALS: BP 113/75
[2021-09-09] MEDS: K and/or MAG REPLACEMENT MC SCH ×6 (08:00→20:00)
[2021-09-09] MEDS: docusate sod 100mg capsule PO SCH ×2 (08:00→20:00)
[2021-09-09] MEDS: lactobacillus rhamnosus 10,000 MMU CELLS/CAPSULE PO SCH ×2 (08:05→21:22)
[2021-09-09] MEDS: vancomycin inj. 750 MG in normal saline 250ml IV soln 250 ML IV SCH ×2 (08:05→15:22)
[2021-09-09] MEDS: pantoprazole 40mg Tablet.DR PO SCH (08:05)
[2021-09-09] MEDS: levoTHYROXINE 75mcg tablet PO SCH (08:06)
[2021-09-09] MEDS: nystatin 15 GM powder TP SCH ×3 (08:07→21:25)
[2021-09-09] MEDS: normal saline 1000ml 1,000 ML IV SCH (08:09)
[2021-09-09 12:00] VITALS: BP 113/74
[2021-09-09] MEDS: HYDROmorphone inj. 0.5 MG/0.5 ML DISP.SYRIN IV PRN (13:42)
--- NOTE | 2021-09-09 14:43 | NUR ---
Reassessment: Pt able to eat well on Regular diet, mostly 100% of meals meeting needs. [facility] 09/08. No nutrition intervention implemented at this time, will continue to monitor and make recommendations as appropriate. Recs: 1. Continue Regular diet as tolerated; monitor need for increased protein 2. Bowel care per rx 3. Weekly wts Addendum: 09/09/21 at [address] Amended: Links added.
[2021-09-09 18:00] VITALS: BP 123/79
--- NOTE | 2021-09-09 18:47 | NUR ---
Problems reprioritized. Patient report given, questions answered & plan of care reviewed with MARIO PRYOR.
--- NOTE | 2021-09-09 18:55 | NUR ---
Patient in room MOE 351. I have received report from Samia MARTIN and had the opportunity to ask questions and assume patient care.
[2021-09-09] MEDS: duloxetine 30mg CAPSULE.DR PO SCH (21:21)
[2021-09-09] MEDS: pregabalin 75mg capsule PO SCH (21:22)
[2021-09-10] VITALS: BP 104/73
[2021-09-10] MEDS: vancomycin inj. 750 MG in normal saline 250ml IV soln 250 ML IV SCH ×4 (00:33→22:54)
[2021-09-10] MEDS: HYDROcodone/acetaminophen 10/325mg tab PO PRN ×6 (01:39→22:53)
--- NOTE | 2021-09-10 06:07 | NUR ---
Unable to draw from extended. Lab notified.
--- NOTE | 2021-09-10 06:15 | NUR ---
Problems reprioritized. Patient report given, questions answered & plan of care reviewed with Samia MARTIN.
--- NOTE | 2021-09-10 06:30 | NUR ---
Patient in room MOE 351. I have received report from Samia MARTIN and had the opportunity to ask questions and assume patient care.
--- NOTE | 2021-09-10 06:44 | NUR ---
Patient in room MOE 351. I have received report from MARIO PRYOR and had the opportunity to ask questions and assume patient care.
[2021-09-10 07:34] VITALS: BP 122/74
[2021-09-10] MEDS: levoTHYROXINE 75mcg tablet PO SCH (07:40)
[2021-09-10] MEDS: lactobacillus rhamnosus 10,000 MMU CELLS/CAPSULE PO SCH ×2 (07:40→21:43)
[2021-09-10] MEDS: pantoprazole 40mg Tablet.DR PO SCH (07:41)
[2021-09-10] MEDS: nystatin 15 GM powder TP SCH ×3 (07:42→21:46)
[2021-09-10] MEDS: docusate sod 100mg capsule PO SCH ×2 (07:42→20:00)
[2021-09-10] MEDS: K and/or MAG REPLACEMENT MC SCH ×4 (08:00→20:00)
--- NOTE | 2021-09-10 08:03 | NUR ---
Student Medication Administration: For this medication-pass time frame, all medication were reviewed, dispensed, administered and documented per hospital policy by cristofer Calderon.
--- NOTE | 2021-09-10 10:40 | NUR ---
Student documentation: I have reviewed and agree with all interventions, assessments performed and documented by Jamal, log processor operator.
[2021-09-10 11:00] VITALS: BP 114/67
--- NOTE | 2021-09-10 11:36 | NUR ---
Problems reprioritized. Patient report given, questions answered & plan of care reviewed with Samia MARTIN.
[2021-09-10 11:38] LABS: BASOPHILS # (AUTO) 0.1 X10'3 (0-0.2); EOSINOPHILS # (AUTO) 0.2 X10'3 (0-0.9); HEMATOCRIT 32.8 % (35.0-45.0); HEMOGLOBIN 10.5 g/dl (12.0-16.0); LYMPHOCYTES # (AUTO) 1.6 X10'3 (1.1-4.8); LYMPHOCYTES % (AUTO) 24.1 % (21-51); MEAN CORPUSCULAR HEMOGLOBIN 23.1 PG (27.0-31.0); MEAN CORPUSCULAR HGB CONC 31.9 g/dL (33.0-36.5); MEAN CORPUSCULAR VOLUME 72.3 FL (78-98); MEAN PLATELET VOLUME 8.5 FL (7.4-10.4); MONOCYTES # (AUTO) 0.4 X10'3 (0-0.9); MONOCYTES % (AUTO) 6.6 % (2-12); NEUTROPHILS # (AUTO) 4.4 X10'3 (1.8-7.7); NEUTROPHILS % (AUTO) 65.3 % (42-75); PLATELET COUNT 425 X10'3 (140-440); RED BLOOD COUNT 4.53 X10'6 (4.20-5.60); RED CELL DISTRIBUTION WIDTH 15.9 % (11.5-14.5); WHITE BLOOD COUNT 6.7 X10'3 (4.5-11.0)
[2021-09-10 11:52] LABS: ALANINE AMINOTRANSFERASE 14 U/L (12-78); ALBUMIN/GLOBULIN RATIO 0.8 (1.1-1.5); ALKALINE PHOSPHATASE 96 IU/L (46-116); ANION GAP 4 (8-16); ASPARTATE AMINO TRANSFERASE 13 U/L (10-37); BILIRUBIN,TOTAL 0.2 MG/DL (0.1-1.0); BLOOD UREA NITROGEN 11 MG/DL (7-18); CALCIUM 8.6 MG/DL (8.5-10.1); CHLORIDE 107 MMOL/L (99-107); CREATININE 0.55 MG/DL (0.40-0.90); GLUCOSE 77 MG/DL (70-104); POTASSIUM 3.7 MMOL/L (3.5-5.1); SODIUM 141 MMOL/L (135-145); TOTAL CARBON DIOXIDE 30.4 MMOL/L (24-32); TOTAL PROTEIN 6.6 G/DL (6.4-8.2); eGFR > 90 ML/MIN
--- NOTE | 2021-09-10 12:30 | NUR ---
Patient in room MOE 351. I have received report from Samia MARTIN and had the opportunity to ask questions and assume patient care.
--- NOTE | 2021-09-10 12:30 | NUR ---
Patient in room MOE 351. I have received report from Samia MARTIN and had the opportunity to ask questions and assume patient care.
[2021-09-10] MEDS: HYDROmorphone inj. 0.5 MG/0.5 ML DISP.SYRIN IV PRN (13:32)
--- NOTE | 2021-09-10 13:33 | NUR ---
[facility] nursing students reapplied nystatin powder to patient's pannus and groin area during a full bed bath at 1200. CHARBEL was unavailable at that time for scanning purposes.
--- NOTE | 2021-09-10 17:40 | NUR ---
Student Medication Administration: For this medication-pass time frame, all medication were reviewed, dispensed, administered and documented per hospital policy by Ilsa nursing educator.
--- NOTE | 2021-09-10 17:40 | NUR ---
Student documentation: I have reviewed and agree with all interventions, assessments performed and documented by Piedad, nursing informatics specialist.
--- NOTE | 2021-09-10 17:52 | NUR ---
Problems reprioritized. Patient report given, questions answered & plan of care reviewed with Samia leung.
--- NOTE | 2021-09-10 17:52 | NUR ---
Problems reprioritized. Patient report given, questions answered & plan of care reviewed with Samia MARTIN.
[2021-09-10 18:00] VITALS: BP 117/77
--- NOTE | 2021-09-10 18:45 | NUR ---
Patient in room MOE 351. I have received report from MARIO Gracia and had the opportunity to ask questions and assume patient care.
--- NOTE | 2021-09-10 18:48 | NUR ---
Patient in room MOE 351. I have received report from Samia MARTIN and had the opportunity to ask questions and assume patient care.
--- NOTE | 2021-09-10 19:14 | NUR ---
Problems reprioritized. Patient report given, questions answered & plan of care reviewed with MARIO PRYOR.
[2021-09-10] MEDS: pregabalin 75mg capsule PO SCH (21:43)
[2021-09-10] MEDS: duloxetine 30mg CAPSULE.DR PO SCH (21:43)
[2021-09-11] VITALS: BP 101/66
--- NOTE | 2021-09-11 05:27 | NUR ---
Student documentation: I have reviewed and agree with all interventions, assessments performed and documented by Hank [employer] student.
--- NOTE | 2021-09-11 06:25 | NUR ---
Problems reprioritized. Patient report given, questions answered & plan of care reviewed with MARIO Gracia.
[2021-09-11] MEDS ORDERED: VANCOMYCIN LEVEL IV ONE (06:30)
--- NOTE | 2021-09-11 06:36 | NUR ---
Problems reprioritized. Patient report given, questions answered & plan of care reviewed with Samia MARTIN.
[2021-09-11 07:00] VITALS: BP 121/81
[2021-09-11] MEDS: docusate sod 100mg capsule PO SCH ×2 (08:00→20:00)
[2021-09-11] MEDS: K and/or MAG REPLACEMENT MC SCH ×2 (08:00→20:00)
[2021-09-11] MEDS: vancomycin inj. 750 MG in normal saline 250ml IV soln 250 ML IV SCH (08:01)
[2021-09-11] MEDS: pantoprazole 40mg Tablet.DR PO SCH (08:02)
[2021-09-11] MEDS: levoTHYROXINE 75mcg tablet PO SCH (08:02)
[2021-09-11] MEDS: lactobacillus rhamnosus 10,000 MMU CELLS/CAPSULE PO SCH ×2 (08:02→20:51)
[2021-09-11] MEDS: nystatin 15 GM powder TP SCH ×3 (08:03→20:53)
[2021-09-11] MEDS: HYDROcodone/acetaminophen 10/325mg tab PO PRN ×4 (08:13→23:07)
[2021-09-11 08:16] LABS: BASOPHILS # (AUTO) 0.1 X10'3 (0-0.2); BASOPHILS % (AUTO) 0.9 % (0-1); EOSINOPHILS # (AUTO) 0.3 X10'3 (0-0.9); EOSINOPHILS % (AUTO) 3.8 % (0-6); HEMATOCRIT 35.6 % (35.0-45.0); HEMOGLOBIN 11.3 g/dl (12.0-16.0); LYMPHOCYTES # (AUTO) 1.3 X10'3 (1.1-4.8); LYMPHOCYTES % (AUTO) 19.6 % (21-51); MEAN CORPUSCULAR HGB CONC 31.7 g/dL (33.0-36.5); MEAN CORPUSCULAR VOLUME 72.5 FL (78-98); MEAN PLATELET VOLUME 8.2 FL (7.4-10.4); MONOCYTES # (AUTO) 0.4 X10'3 (0-0.9); MONOCYTES % (AUTO) 6.7 % (2-12); NEUTROPHILS # (AUTO) 4.6 X10'3 (1.8-7.7); PLATELET COUNT 415 X10'3 (140-440); RED CELL DISTRIBUTION WIDTH 16.3 % (11.5-14.5); WHITE BLOOD COUNT 6.7 X10'3 (4.5-11.0)
[2021-09-11 08:43] LABS: ALANINE AMINOTRANSFERASE 18 U/L (12-78); ALBUMIN 3.2 G/DL (3.4-5.0); ALBUMIN/GLOBULIN RATIO 0.8 (1.1-1.5); ALKALINE PHOSPHATASE 104 IU/L (46-116); ANION GAP 8 (8-16); ASPARTATE AMINO TRANSFERASE 18 U/L (10-37); BILIRUBIN,TOTAL 0.2 MG/DL (0.1-1.0); BLOOD UREA NITROGEN 12 MG/DL (7-18); BUN/CREATININE RATIO 23.5 (6.6-38.0); CALCIUM 9.4 MG/DL (8.5-10.1); CHLORIDE 106 MMOL/L (99-107); CREATININE 0.51 MG/DL (0.40-0.90); GLUCOSE 93 MG/DL (70-104); POTASSIUM 3.9 MMOL/L (3.5-5.1); SODIUM 145 MMOL/L (135-145); TOTAL CARBON DIOXIDE 31.3 MMOL/L (24-32); TOTAL PROTEIN 7.2 G/DL (6.4-8.2); eGFR > 90 ML/MIN
[2021-09-11 08:52] LABS: VANCOMYCIN,TROUGH 22.4 UG/ML (6.0-14.0)
--- NOTE | 2021-09-11 09:10 | NUR ---
CRITICAL VANCO 22.4, DR GASPAR AWARE, PHARMACIST TO REDOSE
[2021-09-11 11:00] VITALS: BP 137/78
[2021-09-11] MEDS: HYDROmorphone inj. 0.5 MG/0.5 ML DISP.SYRIN IV PRN (14:37)
[2021-09-11] MEDS ORDERED: LIDOcaine 4% (40 mg/ml) topical solution 50ml TP ONE ×2 (16:30→16:40)
--- NOTE | 2021-09-11 18:05 | NUR ---
WOUND VAC EDUCATION PROVIDED BY WOUND CARE 1. Patient instructed to call the Wound Center or their Home Health Agency immediately if: * They notice a change in the color or amount of the fluid in the canister. * Their wound looks more red than usual or has a foul smell. * The skin around their wound looks reddened or irritated. * The dressing feels loose or appears to be loose. * They experience any increase or changes in their pain. * The alarm will not turn off. 2. Patient instructed that they should not be disconnected from suction for more than 2 hours at a time. * If they are not able to get the suction back on, they need to remove the dressing and take all of the foam out of the wound. * Then moisten sterile gauze with normal saline and place on/in the wound. * Change the dressing once a day until arrangements have been made to replace the wound vac dressing. 3. Patient instructed to turn the wound vac machine OFF and call 911 or go to the ED immediately if their canister fills rapidly with blood. 4. If any of these occur while in the hospital tell a nurse immediately. Addendum: 09/11/21 at 1806 by Yoli Calle RN Amended: Links added.
--- NOTE | 2021-09-11 19:31 | NUR ---
Patient in room MOE 351. I have received report from Samia MARTIN and had the opportunity to ask questions and assume patient care.
[2021-09-11 20:00] VITALS: BP 137/83
[2021-09-11] MEDS: vancomycin/NS 1 GM ADD-VANTAGE 250 ML IV SCH (20:50)
[2021-09-11] MEDS: pregabalin 75mg capsule PO SCH (20:51)
[2021-09-11] MEDS: duloxetine 30mg CAPSULE.DR PO SCH (20:51)
[2021-09-12] VITALS: BP 120/83
[2021-09-12] MEDS: HYDROcodone/acetaminophen 10/325mg tab PO PRN ×4 (05:14→20:34)
[2021-09-12 06:23] LABS: BASOPHILS # (AUTO) 0.1 X10'3 (0-0.2); BASOPHILS % (AUTO) 0.9 % (0-1); EOSINOPHILS # (AUTO) 0.3 X10'3 (0-0.9); EOSINOPHILS % (AUTO) 4.4 % (0-6); HEMATOCRIT 31.1 % (35.0-45.0); HEMOGLOBIN 9.8 g/dl (12.0-16.0); LYMPHOCYTES # (AUTO) 1.3 X10'3 (1.1-4.8); LYMPHOCYTES % (AUTO) 21.7 % (21-51); MEAN CORPUSCULAR HEMOGLOBIN 22.7 PG (27.0-31.0); MEAN CORPUSCULAR HGB CONC 31.6 g/dL (33.0-36.5); MEAN PLATELET VOLUME 8.4 FL (7.4-10.4); MONOCYTES # (AUTO) 0.5 X10'3 (0-0.9); MONOCYTES % (AUTO) 7.8 % (2-12); NEUTROPHILS # (AUTO) 3.9 X10'3 (1.8-7.7); NEUTROPHILS % (AUTO) 65.2 % (42-75); PLATELET COUNT 342 X10'3 (140-440); RED BLOOD COUNT 4.32 X10'6 (4.20-5.60); RED CELL DISTRIBUTION WIDTH 16.3 % (11.5-14.5)
--- NOTE | 2021-09-12 06:30 | NUR ---
Problems reprioritized. Patient report given, questions answered & plan of care reviewed with Emily MARTIN.
--- NOTE | 2021-09-12 06:39 | NUR ---
Patient in room MOE 351. I have received report from MARIO Garber and had the opportunity to ask questions and assume patient care.
[2021-09-12 06:45] LABS: ALANINE AMINOTRANSFERASE 17 U/L (12-78); ALBUMIN 2.7 G/DL (3.4-5.0); ALBUMIN/GLOBULIN RATIO 0.7 (1.1-1.5); ALKALINE PHOSPHATASE 91 IU/L (46-116); ANION GAP 7 (8-16); ASPARTATE AMINO TRANSFERASE 25 U/L (10-37); BILIRUBIN,TOTAL 0.3 MG/DL (0.1-1.0); BLOOD UREA NITROGEN 14 MG/DL (7-18); BUN/CREATININE RATIO 27.5 (6.6-38.0); CALCIUM 8.4 MG/DL (8.5-10.1); CHLORIDE 107 MMOL/L (99-107); CREATININE 0.51 MG/DL (0.40-0.90); GLUCOSE 99 MG/DL (70-104); POTASSIUM 3.7 MMOL/L (3.5-5.1); SODIUM 142 MMOL/L (135-145); TOTAL CARBON DIOXIDE 27.7 MMOL/L (24-32); TOTAL PROTEIN 6.4 G/DL (6.4-8.2); eGFR > 90 ML/MIN
[2021-09-12 07:00] VITALS: BP 139/92
[2021-09-12] MEDS: pantoprazole 40mg Tablet.DR PO SCH (07:45)
[2021-09-12] MEDS: lactobacillus rhamnosus 10,000 MMU CELLS/CAPSULE PO SCH ×2 (07:46→20:32)
[2021-09-12] MEDS: levoTHYROXINE 75mcg tablet PO SCH (07:46)
--- NOTE | 2021-09-12 07:47 | NUR ---
Called pharmacy to notify that patient wants Vanco to be infused at 100 ml/hr instead of 166 ml/hr do to irritation and burning of her vein. Vanco pharmacist will change in future Arnoldo, dalton to hang current vanco at 100 ml/hr at the 0800 dose to prevent medication not being able to be scanned at this time. OK to hang 0800 Vanco at 100 ml/hr this morning per pharmacist.
[2021-09-12] MEDS: docusate sod 100mg capsule PO SCH ×2 (07:54→20:00)
[2021-09-12] MEDS: vancomycin/NS 1 GM ADD-VANTAGE 250 ML IV SCH (08:08)
[2021-09-12] MEDS: K and/or MAG REPLACEMENT MC SCH ×2 (08:10→20:00)
[2021-09-12] MEDS: nystatin 15 GM powder TP SCH ×2 (08:11→20:34)
[2021-09-12 12:00] VITALS: BP 130/76
[2021-09-12] MEDS: HYDROmorphone inj. 0.5 MG/0.5 ML DISP.SYRIN IV PRN (12:19)
--- NOTE | 2021-09-12 18:38 | NUR ---
Problems reprioritized. Patient report given, questions answered & plan of care reviewed with MARIO Callejas and shelby Castillo RN.
[2021-09-12 19:00] VITALS: BP 120/70
[2021-09-12] MEDS ORDERED: VANCOMYCIN LEVEL IV ONE (19:30)
[2021-09-12] MEDS: pregabalin 75mg capsule PO SCH (20:32)
[2021-09-12] MEDS: duloxetine 30mg CAPSULE.DR PO SCH (20:33)
[2021-09-13] VITALS: BP 112/65
[2021-09-13] MEDS: HYDROcodone/acetaminophen 10/325mg tab PO PRN ×4 (00:31→20:06)
--- NOTE | 2021-09-13 06:21 | NUR ---
Problems reprioritized. Patient report given, questions answered & plan of care reviewed with Emily MARTIN. Addendum: 09/13/21 at 0621 by Britta Cordova RN Amended: Links added.
[2021-09-13 06:27] LABS: BASOPHILS # (AUTO) 0.1 X10'3 (0-0.2); EOSINOPHILS # (AUTO) 0.3 X10'3 (0-0.9); EOSINOPHILS % (AUTO) 4.5 % (0-6); HEMATOCRIT 30.4 % (35.0-45.0); HEMOGLOBIN 9.7 g/dl (12.0-16.0); LYMPHOCYTES # (AUTO) 1.4 X10'3 (1.1-4.8); LYMPHOCYTES % (AUTO) 22.3 % (21-51); MEAN CORPUSCULAR HEMOGLOBIN 23.2 PG (27.0-31.0); MEAN CORPUSCULAR VOLUME 72.4 FL (78-98); MEAN PLATELET VOLUME 8.4 FL (7.4-10.4); MONOCYTES # (AUTO) 0.5 X10'3 (0-0.9); MONOCYTES % (AUTO) 8.8 % (2-12); NEUTROPHILS % (AUTO) 63.4 % (42-75); PLATELET COUNT 332 X10'3 (140-440); RED CELL DISTRIBUTION WIDTH 16.2 % (11.5-14.5); WHITE BLOOD COUNT 6.2 X10'3 (4.5-11.0)
--- NOTE | 2021-09-13 06:32 | NUR ---
Patient in room MOE 351. I have received report from MARIO Callejas and had the opportunity to ask questions and assume patient care.
[2021-09-13 06:47] LABS: ALANINE AMINOTRANSFERASE 14 U/L (12-78); ALBUMIN 2.7 G/DL (3.4-5.0); ALBUMIN/GLOBULIN RATIO 0.8 (1.1-1.5); ALKALINE PHOSPHATASE 94 IU/L (46-116); ANION GAP 5 (8-16); ASPARTATE AMINO TRANSFERASE 15 U/L (10-37); BILIRUBIN,TOTAL 0.2 MG/DL (0.1-1.0); BLOOD UREA NITROGEN 12 MG/DL (7-18); BUN/CREATININE RATIO 23.1 (6.6-38.0); CALCIUM 8.8 MG/DL (8.5-10.1); CHLORIDE 111 MMOL/L (99-107); CREATININE 0.52 MG/DL (0.40-0.90); GLUCOSE 93 MG/DL (70-104); POTASSIUM 3.8 MMOL/L (3.5-5.1); SODIUM 144 MMOL/L (135-145); TOTAL PROTEIN 6.3 G/DL (6.4-8.2); eGFR > 90 ML/MIN
[2021-09-13 07:00] VITALS: BP 120/70
[2021-09-13] MEDS: lactobacillus rhamnosus 10,000 MMU CELLS/CAPSULE PO SCH ×2 (07:43→20:05)
[2021-09-13] MEDS: pantoprazole 40mg Tablet.DR PO SCH (07:43)
[2021-09-13] MEDS: levoTHYROXINE 75mcg tablet PO SCH (07:44)
[2021-09-13] MEDS: nystatin 15 GM powder TP SCH ×2 (07:45→20:07)
[2021-09-13] MEDS: docusate sod 100mg capsule PO SCH ×2 (07:48→20:00)
[2021-09-13] MEDS: normal saline 1000ml 1,000 ML IV SCH (07:51)
[2021-09-13] MEDS: K and/or MAG REPLACEMENT MC SCH ×2 (08:00→19:57)
[2021-09-13] MEDS ORDERED: LIDOcaine 4% (40 mg/ml) topical solution 50ml TP ONE (08:55)
[2021-09-13 11:00] VITALS: BP 126/68
[2021-09-13] MEDS: HYDROmorphone inj. 0.5 MG/0.5 ML DISP.SYRIN IV PRN (11:04)
[2021-09-13 18:00] VITALS: BP 123/86
--- NOTE | 2021-09-13 18:26 | NUR ---
Problems reprioritized. Patient report given, questions answered & plan of care reviewed with MARIO Mcbride and shelby Castillo RN.
--- NOTE | 2021-09-13 18:55 | NUR ---
Patient in room MOE 351. I have received report from CITLALY MARTIN and had the opportunity to ask questions and assume patient care.
[2021-09-13] MEDS: pregabalin 75mg capsule PO SCH (20:04)
[2021-09-13] MEDS: duloxetine 30mg CAPSULE.DR PO SCH (20:05)
[2021-09-14] VITALS: BP 111/68
[2021-09-14] MEDS: HYDROcodone/acetaminophen 10/325mg tab PO PRN ×4 (03:36→21:21)
[2021-09-14 05:11] VITALS: BP 111/68
--- NOTE | 2021-09-14 05:29 | NUR ---
Student documentation: I have reviewed and agree with all interventions, assessments performed and documented by AARON (STUDENT).
--- NOTE | 2021-09-14 05:30 | NUR ---
Student Medication Administration: For this medication-pass time frame, all medication were reviewed, dispensed, administered and documented per hospital policy by AARON (STUDENT).
--- NOTE | 2021-09-14 06:44 | NUR ---
Problems reprioritized. Patient report given, questions answered & plan of care reviewed with CORBY MARTIN.
[2021-09-14 06:48] LABS: BASOPHILS # (AUTO) 0.1 X10'3 (0-0.2); BASOPHILS % (AUTO) 1.2 % (0-1); EOSINOPHILS # (AUTO) 0.3 X10'3 (0-0.9); EOSINOPHILS % (AUTO) 5.5 % (0-6); HEMOGLOBIN 9.6 g/dl (12.0-16.0); LYMPHOCYTES # (AUTO) 1.3 X10'3 (1.1-4.8); LYMPHOCYTES % (AUTO) 25.6 % (21-51); MEAN CORPUSCULAR HEMOGLOBIN 22.9 PG (27.0-31.0); MEAN CORPUSCULAR HGB CONC 31.8 g/dL (33.0-36.5); MEAN PLATELET VOLUME 8.8 FL (7.4-10.4); MONOCYTES # (AUTO) 0.4 X10'3 (0-0.9); MONOCYTES % (AUTO) 8.8 % (2-12); NEUTROPHILS # (AUTO) 2.9 X10'3 (1.8-7.7); NEUTROPHILS % (AUTO) 58.9 % (42-75); PLATELET COUNT 323 X10'3 (140-440); RED BLOOD COUNT 4.17 X10'6 (4.20-5.60); RED CELL DISTRIBUTION WIDTH 15.9 % (11.5-14.5); WHITE BLOOD COUNT 4.9 X10'3 (4.5-11.0)
[2021-09-14 07:00] VITALS: BP 93/52
--- NOTE | 2021-09-14 07:01 | NUR ---
Patient in room MOE 351. I have received report from Rae MARTIN and had the opportunity to ask questions and assume patient care.
[2021-09-14 07:09] LABS: ASPARTATE AMINO TRANSFERASE 16 U/L (10-37); BILIRUBIN,TOTAL 0.2 MG/DL (0.1-1.0); BLOOD UREA NITROGEN 11 MG/DL (7-18); BUN/CREATININE RATIO 21.6 (6.6-38.0); CHLORIDE 106 MMOL/L (99-107); CREATININE 0.51 MG/DL (0.40-0.90); GLUCOSE 112 MG/DL (70-104); POTASSIUM 3.7 MMOL/L (3.5-5.1); SODIUM 142 MMOL/L (135-145); eGFR > 90 ML/MIN
[2021-09-14 07:12] LABS: ALANINE AMINOTRANSFERASE 16 U/L (12-78); ALBUMIN 2.6 G/DL (3.4-5.0); ALBUMIN/GLOBULIN RATIO 0.7 (1.1-1.5); ALKALINE PHOSPHATASE 89 IU/L (46-116); ANION GAP 8 (8-16); CALCIUM 8.7 MG/DL (8.5-10.1); TOTAL CARBON DIOXIDE 28.2 MMOL/L (24-32); TOTAL PROTEIN 6.5 G/DL (6.4-8.2)
[2021-09-14] MEDS: docusate sod 100mg capsule PO SCH ×2 (08:00→20:00)
[2021-09-14] MEDS: K and/or MAG REPLACEMENT MC SCH ×2 (08:00→20:00)
[2021-09-14] MEDS: lactobacillus rhamnosus 10,000 MMU CELLS/CAPSULE PO SCH ×2 (09:03→21:20)
[2021-09-14] MEDS: pantoprazole 40mg Tablet.DR PO SCH (09:03)
[2021-09-14] MEDS: nystatin 15 GM powder TP SCH ×2 (09:04→21:21)
[2021-09-14] MEDS: levoTHYROXINE 75mcg tablet PO SCH (09:04)
[2021-09-14 11:00] VITALS: BP 143/78
--- NOTE | 2021-09-14 16:45 | NUR ---
PAGER ID: [phone] MESSAGE: Bina-Surg [id number] Re: Cler 351 can I [place] scopol[place]
[2021-09-14] MEDS ORDERED: mag hydrox/Alum hydrox/simeth 30ml oral suspension PO PRN (17:15)
[2021-09-14 18:00] VITALS: BP 111/70
--- NOTE | 2021-09-14 18:30 | NUR ---
Problems reprioritized. Patient report given, questions answered & plan of care reviewed with Prudence RN.
--- NOTE | 2021-09-14 18:56 | NUR ---
Patient in room MOE 351. I have received report from CORBY MARTIN and had the opportunity to ask questions and assume patient care.
[2021-09-14] MEDS: pregabalin 75mg capsule PO SCH (21:20)
[2021-09-14] MEDS: duloxetine 30mg CAPSULE.DR PO SCH (21:20)
[2021-09-15] VITALS: BP 119/64
[2021-09-15] MEDS: HYDROcodone/acetaminophen 10/325mg tab PO PRN ×2 (02:18→06:45)
--- NOTE | 2021-09-15 06:10 | NUR ---
Student documentation: I have reviewed and agree with all interventions, assessments performed and documented by AARON (STUDENT).
--- NOTE | 2021-09-15 06:11 | NUR ---
Student Medication Administration: For this medication-pass time frame, all medication were reviewed, dispensed, administered and documented per hospital policy by AARON (STUDENT).
--- NOTE | 2021-09-15 06:42 | NUR ---
Problems reprioritized. Patient report given, questions answered & plan of care reviewed with CORBY MARTIN.
[2021-09-15 07:00] VITALS: BP 111/74
[2021-09-15] MEDS: docusate sod 100mg capsule PO SCH (08:00)
[2021-09-15] MEDS ORDERED: scopolamine 1.5mg patch.TD72 (72-hour patch) TD ONE (08:00)
[2021-09-15] MEDS: lactobacillus rhamnosus 10,000 MMU CELLS/CAPSULE PO SCH (08:25)
[2021-09-15] MEDS: levoTHYROXINE 75mcg tablet PO SCH (08:25)
[2021-09-15] MEDS: pantoprazole 40mg Tablet.DR PO SCH (08:25)
[2021-09-15] MEDS: nystatin 15 GM powder TP SCH (08:26)
--- NOTE | 2021-09-15 08:45 | NUR ---
Patient ready for discharge. Transferred patients hospital wound vac over to a home wound vac settings at 125mmHg low continuous. Dressing CDI not leaks. Patient pictures taken of skin tear on buttocks and hydrophillic dressing applied. Midline in place and alcohol caps placed on ports. Patient report called to Samia MARTIN at [facility]. . Also, ambulance crew was given patients home medications to take to her new facility that were locked up in our pharmacy. All patients belongings sent with patient. Patients at bedside.
== END 2021-09-15 09:35 | DRG 317 ==
LOC: ER 14:18 → ED HOLD 15:16 → SUR 3N 08-29 16:47
PROVIDERS: ADMIT Family Medicine; ATTEND Family Medicine
PROC: 0JDL0ZZ Extraction of Right Upper Leg Subcutaneous Tissue and Fascia, Open Approach (ICD-10-PCS; principal; 2021-08-29 13:07)
DX: T87.43 Infection of amputation stump, right lower extremity (principal); L02.415 Cutaneous abscess of right lower limb; Y83.5 Amputation of limb(s) as the cause of abnormal reaction of the patient, or of later complication, without mention of misadventure at the time of the procedure; K21.9 Gastro-esophageal reflux disease without esophagitis; G62.9 Polyneuropathy, unspecified; F32.A Depression, unspecified; E03.9 Hypothyroidism, unspecified; B95.62 Methicillin resistant Staphylococcus aureus infection as the cause of diseases classified elsewhere; E87.6 Hypokalemia; Z20.822 Contact with and (suspected) exposure to COVID-19; L03.115 Cellulitis of right lower limb; E66.9 Obesity, unspecified; Z68.34 Body mass index [BMI] 34.0-34.9, adult; Z87.440 Personal history of urinary (tract) infections; Z90.49 Acquired absence of other specified parts of digestive tract; Z86.19 Personal history of other infectious and parasitic diseases; Y92.89 Other specified places as the place of occurrence of the external cause; Z87.891 Personal history of nicotine dependence; Z88.5 Allergy status to narcotic agent; Z79.899 Other long term (current) drug therapy
CPT/HCPCS: 36415; 80053; 80202; 80305; 81003; 83605; 83735; 84145; 84443; 85025; 87040; 87070; 87075; 87077; 87081; 87186; 87635; 97110; 97140; 97162; 97530; 99285; A4618; A6550; A7000; C9803; G0378; J0131; J1170; J2175; J2250; J2543; J2704; J3010; J3370; J7030; J7050; J7120

== ENCOUNTER 2021-10-31 12:46 | Emergency (ER) | payer MEDICAID ==
[~2021-10-31 12:46] MED LIST changes: +CEPH500C2 PO; -LACT1CAP26 PO; -NOR5T PO; +OXYC-138 PO; -OXYC1TAB17 PO; +PREG150C PO; -PREG150C46 PO
== END 2021-10-31 15:46 | disposition left against medical advice (07) ==
LOC: ER 12:47
DX: N39.0 Urinary tract infection, site not specified (principal); Z53.21 Procedure and treatment not carried out due to patient leaving prior to being seen by health care provider

== ENCOUNTER 2021-12-16 11:17 | Outpatient (CLI) | payer MEDICAID | END 2021-12-16 23:59 | disposition home or self-care (01) | LOC: LAB 11:17 | PROVIDERS: ATTEND Physician Assistant | DX: M16.0 Bilateral primary osteoarthritis of hip (principal); M25.751 Osteophyte, right hip; M25.752 Osteophyte, left hip; Q65.89 Other specified congenital deformities of hip | CPT/HCPCS: 73521 ==

== ENCOUNTER 2022-09-05 11:33 | Outpatient (CLI) | payer MEDICAID | END 2022-09-05 23:59 | disposition home or self-care (01) | LOC: RAD 11:33 | DX: M17.12 Unilateral primary osteoarthritis, left knee (principal) | CPT/HCPCS: 73564 ==